=== PATIENT | female | born 1975 | race Caucasian/White ===

== ENCOUNTER 2020-06-07 06:57 | Outpatient (NON) | payer MEDICARE, MEDICAID, SELFPAY ==
[2020-06-07 18:51] LABS: SARS-CoV-2 RNA PCR Negative
== END 2020-06-07 06:58 ==
PROVIDERS: PCP Student in an Organized Health Care Education/Training Program; Visit Provider Student in an Organized Health Care Education/Training Program
DX: R68.89 Other general symptoms and signs (principal); Z20.828 Contact with and (suspected) exposure to other viral communicable diseases
CPT/HCPCS: 87635; C9803; U0003

== ENCOUNTER 2020-12-28 16:36 | Emergency (ER) | payer MEDICARE, MEDICAID, SELFPAY ==
[2020-12-28 16:52] VITALS: BP 130/80; PULSE 63; RESP 16; TEMP 36.6; O2SAT 100
--- NOTE | 2020-12-28 16:54 | ED.FEMALEGU ---
HPI - Female Genitourinary General Chief complaint: Urogenital-Female Stated complaint: uti Time Seen by Provider: 12/28/20 16:54 Source: patient Mode of arrival: ambulatory Limitations: no limitations History of Present Illness HPI Narrative: Verónica Jacobo is a 45 yo female with a PMH of HTN, MS, chronic pain, who comes to [facility] care, with urgency frequency x3 days. States she has abdominal pain when she is urinating Patient occasionally gets UTIs, has MS Related Data Home Medications Medication Instructions Recorded Confirmed gabapentin 800 mg PO HS 05/10/19 12/28/20 lorazepam 2 mg PO HS PRN 05/10/19 12/28/20 tizanidine 4 mg PO HS 05/10/19 12/28/20 baclofen 20 mg PO BID 12/28/20 12/28/20 Allergies Allergy/AdvReac Type Severity Reaction Status Date / Time Penicillins Allergy Unknown Unknown Verified 12/28/20 16:50 Sulfa (Sulfonamide Allergy Unknown Unknown Verified 12/28/20 16:50 Antibiotics) Review of Systems Review of Systems: Narrative: CONSTITUTIONAL: Denies fever, chills, sweats. EYES: Denies visual changes, redness, discharge. ENT: Denies rhinorrhea, congestion, sore throat, otalgia. CARDIOVASCULAR: Denies chest pain, palpitations, edema. RESPIRATORY: Denies dyspnea, wheezing, cough GASTROINTESTINAL: Denies abdominal pain, nausea, vomiting, diarrhea. GENITOURINARY: Has dysuria, no hematuria, abnormal discharge SKIN: Denies rash or itching. NEUROLOGIC: Denies numbness, or focal weakness. PSYCHIATRIC: Denies anxiety or depression. FORMERLY [facility], [facility]–1983 Past Medical History Medical History Hypertension Multiple sclerosis Surgical History Surgical History History of appendectomy History of partial hysterectomy Family History Family History Other Hypertension Social History Social History Smoking status: Never smoker Alcohol intake: never Gender identity (if verbalized by the patient): Female Comments At time of signature, I agree with nursing past medical, surgical, social and family history. There is no relevant family history pertinent to the presenting complaint. Exam Narrative: Exam Narrative: GENERAL: This is a well-nourished, well-developed patient, in mild distress. HEAD: normocephalic, atraumatic. EYES: Sclera clear/white. Vision is grossly intact. EARS: External ears normal, . Hearing grossly intact. NOSE: External nose normal without nasal discharge, nares without redness, no rhinorrhea. THROAT: Mucous membranes moist, NECK: Neck supple, CARDIOVASCULAR: Regular rate and rhythm without murmurs, gallops, or rubs. RESPIRATORY: Clear to auscultation. Breath sounds equal bilaterally. No wheezes, rales, or rhonchi. GASTROINTESTINAL: Abdomen soft, SKIN: warm, intact with no suspicious lesions or rash, good texture and turgor. NEURO: awake, alert, and oriented to person, place and time. There were no obvious focal neurologic abnormalities. Steady gait EXTREMITIES: Normal range of motion. BACK: Nontender without deformity Course Course Emergency Course: Patient comes to urgent care with complaints of dysuria and urgency; history states that she has a penicillin allergy but she has been treated with Keflex before with no problem UA shows 1+ leukocytes and 2+ blood Started on Keflex and Pyridium-appears to drink adequate fluids Vital Signs Vital signs: Vital Signs Temperature 97.9 F 12/28/20 16:52 Pulse Rate 63 12/28/20 16:52 Respiratory Rate 16 12/28/20 16:52 Blood Pressure 130/80 12/28/20 16:52 Pulse Oximetry 100 12/28/20 16:52 Temperature 97.9 F 12/28/20 16:56 Pulse Rate 63 12/28/20 16:56 Respiratory Rate 16 12/28/20 16:56 Blood Pressure 130/80 12/28/20 16:56 Pulse Oximetry 100 12/28/20 16:56 MDM - Female Genitourin
[2020-12-28 16:56] VITALS: BP 130/80; PULSE 63; RESP 16; TEMP 36.6; O2SAT 100
== END 2020-12-28 17:08 | disposition home or self-care (01) ==
PROVIDERS: Emergency Provider Nurse Practitioner; PCP Student in an Organized Health Care Education/Training Program
DX: N30.01 Acute cystitis with hematuria (principal); I10 Essential (primary) hypertension; G35 Multiple sclerosis
CPT/HCPCS: 81003; 87086; 87088; 99213; G0463

== ENCOUNTER 2021-10-14 12:34 | Emergency (ER) | payer MEDICARE, MEDICAID, SELFPAY | END 2021-10-14 13:01 | disposition left against medical advice (07) | PROVIDERS: Emergency Provider Internal Medicine Hematology & Oncology; PCP Student in an Organized Health Care Education/Training Program | DX: Z53.21 Procedure and treatment not carried out due to patient leaving prior to being seen by health care provider (principal) | CPT/HCPCS: 99199 ==

== ENCOUNTER 2021-11-02 16:06 | Emergency (ER) | payer MEDICARE, MEDICAID, SELFPAY ==
--- NOTE | 2021-11-02 17:00 | PC.NURSE ---
No answer when called for triage.
== END 2021-11-02 16:30 | disposition left against medical advice (07) ==
LOC: ANHED 17:04
PROVIDERS: PCP Student in an Organized Health Care Education/Training Program
DX: Z53.21 Procedure and treatment not carried out due to patient leaving prior to being seen by health care provider (principal)
CPT/HCPCS: 99199

== ENCOUNTER 2022-12-23 09:27 | Emergency (ER) | payer MEDICARE, MEDICAID, SELFPAY ==
--- NOTE | ~2022-12-23 | CT_ITS ---
EXAMINATION: CT abdomen pelvis wo con DATE: 12/23/2022 12:13 INDICATION: Right flank pain, urinary tract infection TECHNIQUE: Computed tomography (CT) of the abdomen and pelvis was performed without intravenous contr ast. Automated exposure control and iterative reconstruction technique were employed. Exam dose: 846 .91 mGy-cm total exam DLP. COMPARISON: 05/10/2019 CT abdomen pelvis FINDINGS: The lung bases are clear. Normal heart size. No pericardial or pleural effusion. Small sliding hiatal hernia. Postoperative change of the stomach. Status post cholecystectomy. No hepatic steatosis is identified. No hepatic space-occupying mass lesion. No bile duct or pancreati c duct dilatation. No pancreatic mass lesion or calcification. Normal splenic size. Normal morphology of the adrenal glands. No renal mass lesion or urinary tract calculus or hydroureteronephrosis is evident. The urinary bladd er is unremarkable. Status post hysterectomy. The appendix is not localized. There is some fluid levels in the small bowel and colon without abnorm al dilatation, wall thickening or pneumatosis, which may be due to mild adynamic ileus. Mild sigmoid colon diverticulosis; no evidence of diverticulitis. Degenerative changes of the thoracic and lumbar spine. No suspicious osteolytic or osteoblastic lesio ns are noted. IMPRESSION: No urinary tract calculus or urinary tract obstruction is detected Status post cholecystectomy Postoperative change of the stomach Small sliding hiatal hernia Mild sigmoid colon diverticulosis Reviewed, dictated and finalized at [facility]. Reviewed, dictated and finalized at [facility].
[2022-12-23 09:28] VITALS: BP 126/87; PULSE 74; RESP 17; TEMP 36.6; O2SAT 100
[2022-12-23 09:57] LABS: Basophils Percent Auto 0.2 % (0.2-1.2); Eosinophils Absolute Auto 0.1 K/mm3 (0-0.3); Eosinophils Percent Auto 0.9 % (0-4.4); Hematocrit 44.9 % (37.0-47.0); Hemoglobin 14.8 g/dL (12.0-15.0); Immature Granulocyte Absolute 0.05 K/mm3 (0.00-0.031); Immature Granulocyte Percent A 0.4 % (0-0.5); Lymphocytes Absolute Auto 1.54 K/mm3 (0.9-3.2); Lymphocytes Percent Auto 13.1 % (18.3-44.2); Mean Corpuscular Hemoglobin 31.1 pg (26-34); Mean Corpuscular Volume 94.3 fl (80-100); Mean Platelet Volume 9.8 fl (7.4-10.4); Monocytes Percent Auto 8.6 % (2.6-8.5); Neutrophils Percent Auto 76.8 % (45.5-73.1); Platelet Count Result 289 k/mm3 (150-375); Red Blood Count 4.76 M/mm3 (4.2-5.4); White Blood Count 11.7 K/mm3 (4.5-10.0)
[2022-12-23 09:58] LABS: Appearance Urine Cloudy (Clear); Bacteria Urine 4+ /hpf; Bilirubin Urine Negative (Negative); Blood Urine 3+ (Negative); Color Urine Yellow (Yellow); Glucose Urine UA Negative (Negative); Ketones Urine Negative (Negative); Leukocyte Esterase Ur 3+ LEU/UL (Negative); Nitrate Urine Positive (Negative); Non Pathogenic Casts 0-2; Protein Urine 2+ mg/dL (Negative); Specific Grav Ur 1.015 (1.001-1.035); Squamous Epithelial Cell Urine Few /hpf (Few); Urobilinogen Urine 0.2 mg/dL (<2.0); WBC Urine 51-100 /hpf; pH Urine 6.5 (5.0-9.0)
[2022-12-23 10:04] LABS: Alanine Aminotransferase 18 U/L (6-35); Albumin Level 4.2 g/dL (3.5-5.1); Alkaline Phosphatase 55 U/L (38-126); Anion Gap 6 mmol/L (8-16); Aspartate Amino Transferase 21 U/L (14-36); Bilirubin,Total 0.6 mg/dL (0.2-1.3); Blood Urea Nitrogen 9 mg/dL (7-17); Calcium 9.2 mg/dL (8.4-10.2); Carbon Dioxide 31 mmol/L (22-30); Chloride 99 mmol/L (98-107); Estimated CRCL calculation 87 ml/min; Estimated Glomerular Filt Rate > 60; Glucose 93 mg/dL (65-110); Lipase 106 U/L (23-300); Potassium 3.9 mmol/L (3.4-5.0); Sodium 136 mmol/L (137-145)
[2022-12-23 10:12] LABS: Add Urine Microscopic? YES
--- NOTE | 2022-12-23 11:11 | ED.BACK ---
HPI - Back Pain/Injury General Chief Complaint: Back Pain/Injury Stated Complaint: right flank pain Time Seen by Provider: 12/23/22 10:34 History of Present Illness HPI Narrative: 47-year-old female presents to the emergency room today for UTI symptoms with right flank pain. She started having urinary symptoms about 3 days ago, cloudy, malodorous urine with dysuria. She started having significant pain in the right flank area yesterday. She reports having severe nausea without vomiting. She feels a little dizzy lightheaded at times. She has a low-grade temp around 99 at home. No abdominal pain. She has a history of MS and reports having immune compromise. She called her [employer] this morning and they prescribed Cipro which she cannot take do to side effects and drug interaction. She is allergic to Bactrim and penicillin. Related Data Home Medications Medication Instructions Recorded Confirmed gabapentin 800 mg tablet 800 mg PO HS 05/10/19 12/28/20 lorazepam 2 mg tablet 2 mg PO HS PRN Anxiety 05/10/19 12/28/20 tizanidine 4 mg tablet 4 mg PO HS 05/10/19 12/28/20 baclofen 20 mg tablet 20 mg PO BID 12/28/20 12/28/20 Allergies Allergy/AdvReac Type Severity Reaction Status Date / Time Penicillins Allergy Unknown Unknown Verified 12/23/22 09:30 Sulfa (Sulfonamide Allergy Unknown Unknown Verified 12/23/22 09:30 Antibiotics) Review of Systems Review of Systems: CONSTITUTIONAL: Denies fever, chills, or sweats. EYES: Denies visual changes, redness, or discharge. ENT: Denies rhinorrhea, congestion, sore throat, or otalgia. CARDIOVASCULAR: Denies chest pain, palpitations, or edema. RESPIRATORY: Denies cough or dyspnea. GASTROINTESTINAL: As per HPI GENITOURINARY: As per HPI SKIN: Denies rash or itching. MUSCULOSKELETAL: Denies back pain, joint pain, or myalgia. NEUROLOGIC: Denies headache, numbness, dizziness, or weakness. PSYCHIATRIC: Denies anxiety or depression. [facility] Past Medical History Medical History Hypertension Multiple sclerosis Surgical History Surgical History History of appendectomy History of partial hysterectomy Family History Family History Other Hypertension Social History Social History Smoking status: Never smoker Alcohol intake: never Gender identity (if verbalized by the patient): Female Exam Narrative: GENERAL: Well-appearing, well-nourished, and in no acute distress. NECK: Supple. No adenopathy or masses. CHEST: Clear to auscultation. No respiratory distress. No wheezes rales or rhonchi HEART: Regular rate and rhythm. No murmur heard. Normal peripheral pulses. ABDOMEN: Soft, nontender, nondistended, normal active bowel sounds. Rigth CVAT EXTREMITIES: Normal range of motion. No edema. SKIN: Warm, dry, no rash. NEURO: No focal deficits. Alert and oriented x3. PSYCH: Normal mood and affect. Course Vital Signs Vital signs: Vital Signs Temperature 36.6 C 12/23/22 09:28 Pulse Rate 74 12/23/22 09:28 Respiratory Rate 17 12/23/22 09:28 Blood Pressure 126/87 12/23/22 09:28 Pulse Oximetry 100 12/23/22 09:28 Oxygen Delivery Room Air 12/23/22 09:28 Temperature 36.6 C 12/23/22 09:28 Pulse Rate 67 12/23/22 12:53 Respiratory Rate 16 12/23/22 12:53 Blood Pressure 135/82 12/23/22 12:53 Pulse Oximetry 100 12/23/22 12:53 Oxygen Delivery Room Air 12/23/22 09:28 MDM - Back Pain/Injury MDM Narrative Medical decision making narrative: Mild WBC elevation UA shows findings of UTI No significant findings on CT scan. Discussed with patient, she feels that she can tolerate PO meds. Will discharge to home but she agrees to have close follow up with PCP in 2 days. Will return to ER i
[2022-12-23] MEDS: SODIUM CHLORIDE 0.9% IV 1,000 ML 999 ML IV CONT (11:21)
[2022-12-23] MEDS: ONDANSETRON INJ 4 MG/2 ML VIAL IV PUSH (11:22)
[2022-12-23 12:53] VITALS: BP 135/82; PULSE 67; RESP 16; O2SAT 100
== END 2022-12-23 13:16 | disposition home or self-care (01) ==
PROVIDERS: Preventive Medicine Aerospace Medicine; Emergency Provider Nurse Practitioner Family; PCP Student in an Organized Health Care Education/Training Program
DX: N10 Acute pyelonephritis (principal); I10 Essential (primary) hypertension; G35 Multiple sclerosis
CPT/HCPCS: 36415; 74176; 80053; 81001; 83690; 85025; 87077; 87086; 87186; 96361; 96365; 96375; 99284; J0696; J2405; J7030

== ENCOUNTER 2023-02-01 13:00 | Outpatient (RCR) | payer MEDICARE, MEDICAID, SELFPAY ==
--- NOTE | 2022-11-07 09:53 | PCPTNOTE ---
Patient did not show up for scheduled appointment this date. Called and left voicemail for Pt about missed appointment. Informed Pt this would be her first N/S. Reminded Pt of upcoming appointment on Saturday11/12/22 @ 09:45.
--- NOTE | 2022-11-07 12:44 | PTOPEVAL1 ---
Assessment and note entered by Yobani Swain, PT Evaluation Information Assessment Status Evaluation Diagnosis MS Subjective Information Patient reporting having MS with progressive symptoms which really became exacerbated after her second . She reports multiple falls in the last few months, with increased tightness. She does not want to use her walking stick and cannot use a cane, she has tried before. Patient is wearing an AFO after not wearing it for awhile and reports she needs to build up to wearing it more. 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 Assessment PT Clinical Summary Verónica is a 47 year old female coming into the clinic with a diagnosis of MS. She has weakness in her hips and LLE. Patient also talks about stopping going to the gym secondary to concerns about incontinence. Recommend talking her primary about getting an evaluation for pelvic floor strengthening. Talked to patient about how with multiple falls would be smart to use the least restrictive assistive device. Physical therapy will work on strengthening and balance. Plan of Care Interventions Electrical Stimulation,Gait Training,Hot Pack/Cold Pack,Manual Therapy,Neuro Re-education,Patient/ Caregiver Education,Therapeutic Activities, Therapeutic Exercise,Ultrasound Other Interventions taping, cupping, IASTM PT Services Indicated Yes Treatment Frequency and 1-2x/wk for 4 weeks Duration These treatments will address the objective and functional deficits as defined above. The patient will be advanced safely and appropriately in order for the patient to progress towards his/her prior level of function. Additional exercises will be introduced and as well as a comprehensive home exercise program upon discharge, if needed, ?to ensure carryover of functional gains achieved in the clinic. This treatment plan has been reviewed and agreement upon by the patient.
--- NOTE | 2022-11-23 10:08 | PCPTNOTE ---
pt canceled today's appt ~ 10 min before appt time, due to being ill.
--- NOTE | 2022-11-29 14:44 | PCPTNOTE ---
Patient did not show up for appointment on 11/29/22.
--- NOTE | 2022-12-07 11:54 | PCPTNOTE ---
Patient did not show up for appointment on 12/07/22.
--- NOTE | 2022-12-13 14:44 | PTOPREEVAL ---
Assessment and note entered by Sonia Hedrick DPT Evaluation Information Assessment Status Re-evaluation Diagnosis MS Subjective Information Pt reports a history of bladder issues and also has a diagnosis of either primary of secondary progressive MS, diagnosed in 2007. Reports incontinence 4-5 times in the last week, volume will be the full amount of her bladder. Can hold urine variable amounts of time but does report urgency, often gets urge incontinence once she is in the bathroom. Wears special underwear for the leakage. Urinates more than 10 times a day and at least 3 more times at night. Difficulty emptying completely. Denies pain with urination. BM 1-2 times a week, reports frequent constipation. Denies pain. States she was never able to use tampons, has had pain with pap smear and has had pain with intercourse some of the time, as long as she can remember. Pt has had 3 children, all vaginal deliveries. Tearing with her first. Partial hysterectomy in 2009, reports she has also been diagnosed with ovarian cysts. D and C in 2005. Highest hip pain in the last week 5/10 and lowest 2/10. Has been feeling some relief of pain with therapy for it so far. Reported Pain Level Pain Score 2: Self Report Assessment PT Clinical Summary The patient has been seen in therapy for MS and general hip/LE pain and recently received an order for pelvic floor therapy for incontinence. She presents with decreased LE strength, decreased core strength, and decreased pelvic floor strength which are contributing to her frequent incontinence. She will benefit from therapy for these issues in addition to her first script in order to reduce incontinence. She does report some improvement in her LE pain so far with therapy. Plan of Care Interventions Electrical Stimulation,Gait Training,Hot Pack/Cold Pack,Manual Therapy,Neuro Re-education,Patient/ Caregiver Education,Therapeutic Activities, Therapeutic Exercise,Self-Care/Home Management, Ultrasound Other Interventions taping, cupping, IASTM PT Services Indicated Yes Treatment Frequency and 2 times a week for 8 visits Duration These treatments will address the objective and functional deficits as d
--- NOTE | 2022-12-14 13:04 | PCPTNOTE ---
Patient called & cancelled scheduled appointment this date due to not feeling well.
--- NOTE | 2023-01-02 10:40 | PCPTNOTE ---
Pt NS her appt today. Pt was called and left message.
--- NOTE | 2023-01-03 13:51 | PCPTNOTE ---
Patient forgot appointment for 01/03/23, thought it was for tomorrow. Patient was reminded of attendance policy and educated if she did not come to her appointments next week she will be discharged.
--- NOTE | 2023-01-17 16:27 | PTOPPROG ---
Assessment and note entered by Sonia Hedrick DPT Evaluation Information Assessment Status Progress Diagnosis MS Subjective Information Pt reports she is having an off day, I really just want to go home and sleep . Reports her incontinence is occurring at least 4 times a week. Has been working on strategies to decrease frequent urination. Hip pain 5/10 and lowest 2/10. Feels improvements being able to walk at home since her pain has decreased. Started a new medicine last week which also might be contributing to her feeling off . Assessment PT Clinical Summary The patient has made some progress in therapy and reports decreased hip pain and improvements with her ability to walk at home. She has made minor hip strength improvements. She reports her urinary incontinence is occuring at the same frequency and demonstrates the same pelvic floor strength. She will continue to benefit from therapy to further address hip pain and incontinence in order to improve function at home. The patient has had to cancel multiple visits due to other health issues and have discussed importance of regularly attending scheduled therapy visits in order to continue progressing. Plan of Care Interventions Electrical Stimulation,Gait Training,Hot Pack/Cold Pack,Manual Therapy,Neuro Re-education,Patient/ Caregiver Education,Therapeutic Activities, Therapeutic Exercise,Self-Care/Home Management Other Interventions taping, cupping, IASTM PT Services Indicated Yes Treatment Frequency and 2 times a week for 4 weeks Duration These treatments will address the objective and functional deficits as defined above. The patient will be advanced safely and appropriately in order for the patient to progress towards his/her prior level of function. Additional exercises will be introduced and as well as a comprehensive home exercise program upon discharge, if needed, ?to ensure carryover of functional gains achieved in the clinic. This treatment plan has been reviewed and agreement upon by the patient.
--- NOTE | 2023-01-25 10:40 | PCPTNOTE ---
Patient called and cancelled her appointment today stating that she had to take her father to an appointment.
--- NOTE | 2023-01-29 10:09 | PCPTNOTE ---
Patient called & cancelled scheduled appointment this date due to being sick.
--- NOTE | 2023-01-30 08:55 | PCPTNOTE ---
Attempted to call patient yesterday to discuss attendance. Patient did not answer and was unable to leave voicemail.
--- NOTE | 2023-02-04 08:07 | PCPTNOTE ---
This treatment is being continued on visit number [id number]. Please see documentation on both accounts to view progress. Completed interventions, outcomes, and problems have been marked as Inactive to facilitate the copying of the Care plan routine for recurring accounts.
== END 2023-02-03 23:59 | disposition home or self-care (01) ==
LOC: ANHPT 13:00
PROVIDERS: PCP Student in an Organized Health Care Education/Training Program
DX: G35 Multiple sclerosis (principal)
CPT/HCPCS: 97014; 97110; 97112; 97140; 97161; 97530; 99199; G0283

== ENCOUNTER 2023-02-07 15:15 | Outpatient (RCR) | payer MEDICARE, MEDICAID, SELFPAY ==
--- NOTE | 2023-02-04 08:13 | PCPTNOTE ---
The treatment documented on this account is a continuation of the treatment documented on visit number [id number]. Please see documentation on both accounts to view progress. The Plan of Care has been transitioned and updated within the new V#. I have addressed and agree with the discipline specific Problems, Interventions, and Goals for the current certification period. Completed interventions, outcomes, and problems have been marked as Inactive to facilitate the copying of the Care plan routine for recurring accounts.
--- NOTE | 2023-02-04 10:34 | PCPTNOTE ---
Patient called & rescheduled appointment this date.
--- NOTE | 2023-02-06 09:35 | PCPTNOTE ---
pt called and canceled today's appt due to having to do something with her child.
--- NOTE | 2023-02-08 12:31 | PCPTNOTE ---
Patient called to cancel appointment today due to her granddaughter having a fever.
--- NOTE | 2023-02-11 12:40 | PCPTNOTE ---
Patient cancelled today's session secondary to illness.
--- NOTE | 2023-03-01 13:52 | PCPTNOTE ---
Patient did not show up for re-evaluation on 03/01/23. Patient's case to be discharged due to non-attendance.
--- NOTE | 2023-03-19 08:30 | PTOPDC ---
Assessment and note entered by Sonia Hedrick, DPT Evaluation Information Assessment Status Discharge - Pt Not Present Diagnosis MS Subjective Information - Assessment PT Clinical Summary Patient is being discharged due to attendance policy after no showing more than 3 sessions. Plan of Care PT Services Indicated No
== END 2023-03-19 10:58 | disposition home or self-care (01) ==
LOC: ANHPT 15:15
PROVIDERS: PCP Student in an Organized Health Care Education/Training Program
DX: G35 Multiple sclerosis (principal); N31.9 Neuromuscular dysfunction of bladder, unspecified
CPT/HCPCS: 97014; 97112; 97140; 99199; G0283

== ENCOUNTER 2023-03-25 10:41 | Emergency (ER) | payer MEDICARE, MEDICAID, SELFPAY ==
[2023-03-25 11:05] VITALS: BP 131/88; PULSE 81; RESP 16; TEMP 36.9; O2SAT 100
--- NOTE | 2023-03-25 11:33 | ED.HA ---
HPI - Headache General Chief Complaint: Headache Stated Complaint: headache,cough Time Seen by Provider: 03/25/23 11:33 Source: patient Mode of arrival: ambulatory Limitations: no limitations History of Present Illness HPI Narrative: 47-year-old female presents with complaint of nasal congestion, sinus pressure and pain for 2 weeks. Patient concerned for sinus infection. Reports worsening of headache, fatigue 3 days ago. Afebrile. Using Flonase with no relief of symptoms. Also reports cough, no shortness breath. All systems reviewed and negative except as noted above. Related Data Home Medications Medication Instructions Recorded Confirmed lorazepam 2 mg tablet 2 mg PO HS PRN Anxiety 05/10/19 12/28/20 tizanidine 4 mg tablet 4 mg PO HS 05/10/19 12/28/20 baclofen 20 mg tablet 20 mg PO BID 12/28/20 12/28/20 bupropion HCl 100 mg tablet mg PO 03/25/23 gabapentin 600 mg tablet mg 03/25/23 linaclotide 290 mcg capsule mcg 03/25/23 (Linzess) modafinil 100 mg tablet mg 03/25/23 omeprazole 40 mg capsule,delayed mg 03/25/23 release semaglutide 0.25 mg or 0.5 mg (2 mg subcut 03/25/23 mg/3 mL) subcutaneous pen injector (Ozempic) Allergies Allergy/AdvReac Type Severity Reaction Status Date / Time Penicillins Allergy Unknown Unknown Verified 03/25/23 10:45 Sulfa (Sulfonamide Allergy Unknown Unknown Verified 03/25/23 10:45 Antibiotics) Review of Systems Review of Systems: CONSTITUTIONAL: reports fever, chills, or sweats. EYES: Denies visual changes, redness, or discharge. ENT: Reports rhinorrhea, congestion, sinus pressure, sore throat. Denies otalgia. CARDIOVASCULAR: Denies chest pain, palpitations, or edema. RESPIRATORY: reports cough. Denies dyspnea. GASTROINTESTINAL: Denies abdominal pain, nausea, vomiting. Reports diarrhea. GENITOURINARY: Denies dysuria or hematuria. SKIN: Denies rash or itching. MUSCULOSKELETAL: Denies back pain, joint pain, or myalgia. NEUROLOGIC: Denies headache, numbness, or weakness. PSYCHIATRIC: Denies anxiety or depression. All other systems reviewed are negative, except as documented in HPI. [facility] Past Medical History Medical History Hypertension Multiple sclerosis Surgical History Surgical History History of appendectomy History of partial hysterectomy Family History Family History Other Hypertension Social History Social History Smoking status: Never smoker Alcohol intake: never Gender identity (if verbalized by the patient): Female Comments At time of signature, agree with nursing past medical, surgical, social and family history. There is no relevant family history pertinent to the presenting complaint. Exam Narrative: GENERAL: This is a well-nourished, well-developed patient, patient ill-appearing but in no acute distress. HEAD: normocephalic, atraumatic. EYES: PERRL. Sclera clear/white. Vision is grossly intact. EARS: External ears normal, auditory canals clear and without drainage, Fluid bilateral TMs without erythema. Hearing grossly intact. NOSE: External nose normal with Severe congestion, erythema and swelling to bilateral nares, purulence nasal drainage. THROAT: Mucous membranes moist, Erythema with postnasal drainage. No exudates. NECK: Neck supple, non-tender without lymphadenopathy, masses or thyromegaly. CARDIOVASCULAR: Regular rate and rhythm without murmurs, gallops, or rubs. RESPIRATORY: Clear to auscultation. Breath sounds equal bilaterally. No wheezes, rales, or rhonchi. SKIN: warm, Dry, intact with no suspicious lesions or rash, good texture and turgor. NEURO: awake, alert, and oriented to person, place and time. There were no obvious focal neurologic abnormalities. EXTREMI
== END 2023-03-25 11:45 | disposition home or self-care (01) ==
PROVIDERS: Emergency Provider Nurse Practitioner Family; PCP Student in an Organized Health Care Education/Training Program
DX: J10.1 Influenza due to other identified influenza virus with other respiratory manifestations (principal); J01.90 Acute sinusitis, unspecified; B96.89 Other specified bacterial agents as the cause of diseases classified elsewhere; I10 Essential (primary) hypertension; Z20.822 Contact with and (suspected) exposure to COVID-19
CPT/HCPCS: 87426; 87804; 99213; C9803; G0463

== ENCOUNTER 2024-02-24 11:12 | Emergency (ER) | payer MEDICARE, MEDICAID, SELFPAY ==
--- NOTE | ~2024-02-24 | US_ITS ---
Duplex Sonography of the left extremity: Indication: Swelling, erythema Findings: Sagittal and transverse B-mode images as well as color-flow imaging were performed on the l eft femoral and popliteal veins. B-mode examination was done without and with compression in the tra nsverse plane. There is good visualization of the common femoral, proximal profunda femoral, superfi cial femoral, greater saphenous, and popliteal veins. Normal flow was seen on color-flow imaging. No rmal compressibility was demonstrated. Visualized calf veins are also patent. Impression: No evidence of deep vein thrombosis involving the left lower extremity. Reviewed, dictated and finalized at location . Impression: No evidence of deep vein thrombosis involving the left lower extremity.
[2024-02-24 11:18] VITALS: BP 138/89; PULSE 80; RESP 16; TEMP 36.8; O2SAT 100
--- NOTE | 2024-02-24 12:19 | ED.GENADULT ---
HPI - General Adult General Chief complaint: Extremity Injury, Lower Stated complaint: DVT rule out in L leg Time Seen by Provider: 02/24/24 11:56 Source: patient Mode of arrival: ambulatory Limitations: no limitations History of Present Illness HPI narrative: 8-year-old with a history of MS presents with the complaints of left leg pain and swelling on and off for past few weeks. Patient states that and of the day her left leg is edematous and painful. She states that she fell a month ago. She is presently disabled from MS she is not on her feet for long time. Denies any fever or chills. Onset (ago): week(s) (2) Location: lower extremity ( Left) Radiation: non-radiation Severity: moderate Quality: aching Pain Consistency: now resolved Relieving factors: none Exacerbating factors: none Associated symptoms: denies other symptoms Related Data Home Medications Medication Instructions Recorded Confirmed lorazepam 2 mg tablet 2 mg PO HS PRN Anxiety 05/10/19 12/28/20 tizanidine 4 mg tablet 4 mg PO HS 05/10/19 12/28/20 baclofen 20 mg tablet 20 mg PO BID 12/28/20 12/28/20 bupropion HCl 100 mg tablet mg PO 03/25/23 gabapentin 600 mg tablet mg 03/25/23 linaclotide 290 mcg capsule mcg 03/25/23 (Linzess) modafinil 100 mg tablet mg 03/25/23 omeprazole 40 mg capsule,delayed mg 03/25/23 release semaglutide 0.25 mg or 0.5 mg (2 mg subcut 03/25/23 mg/3 mL) subcutaneous pen injector (Ozempic) Allergies Allergy/AdvReac Type Severity Reaction Status Date / Time Penicillins Allergy Unknown Unknown Verified 02/24/24 11:14 Sulfa (Sulfonamide Allergy Unknown Unknown Verified 02/24/24 11:14 Antibiotics) Review of Systems Review of Systems: All systems reviewed & are unremarkable except as noted in HPI and below Constitutional: Constitutional: Reports no additional constitutional complaints Eyes: Eyes: Reports no additional eye complaints ENT: Reports system reviewed and no additional complaints, except as documented Cardiovascular: Cardiovascular: Reports no additional cardiovascular complaints Respiratory: Respiratory: Reports no additional respiratory complaints Gastrointestinal: Gastrointestinal: Reports no additional gastrointestinal complaints Musculoskeletal: Musculoskeletal: Reports as per HPI Neurologic: Reports system reviewed and no additional complaints, except as documented PMFSH Past Medical History Medical History Hypertension Multiple sclerosis Surgical History Surgical History History of appendectomy History of partial hysterectomy Family History Family History Other Hypertension Social History Social History Smoking status: Never smoker Alcohol intake: never Gender identity (if verbalized by the patient): Female Exam Narrative: GENERAL: Well-appearing, well-nourished, and in no acute distress. HEAD: Normocephalic, atraumatic. EYES: PERRLA and EOMI.. NECK: Supple. CHEST: Clear to auscultation. No respiratory distress. HEART: Regular rate and rhythm. No murmur heard. Normal peripheral pulses. EXTREMITIES: Normal range of motion. No edema. examination of the left leg shows no evidence of edema, redness calf is soft nontender SKIN: Warm, dry, no rash. NEURO: No focal deficits. Alert and oriented x3. PSYCH: Normal mood and affect. Course Course Emergency Course: notified patient about ultrasound findings. Advised compression stockings. advised to continue home medications. She wanted me to give a referral to Dr. Lock Vital Signs Vital signs: Vital Signs Temperature 36.8 C 02/24/24 11:18 Pulse Rate 80 02/24/24 11:18 Respiratory Rate 16 02/24/24 11:18 Blood Pressure 138/89 02/24/24 11:18 Pulse Oximetry 100 02/24/24 11
== END 2024-02-24 12:38 | disposition home or self-care (01) ==
LOC: ANHED 12:32
PROVIDERS: Emergency Provider Family Medicine
DX: M79.605 Pain in left leg (principal); I10 Essential (primary) hypertension; G35 Multiple sclerosis
CPT/HCPCS: 93971; 99284

== ENCOUNTER 2024-04-20 01:44 | Day surgery (SDC) | payer MEDICARE, MEDICAID, SELFPAY ==
[2024-04-06 13:26] VITALS: BMI 26.6
[2024-04-20 10:43] VITALS: BP 128/79; PULSE 58; RESP 18; TEMP 36.1; O2SAT 100
--- NOTE | 2024-04-20 10:47 | WPDANESEPPF ---
Anes - Initial Pre Proc Eval Procedure: Operation Date: 04/20/24 11:30 Proposed Procedures p Screening Colonoscopy - Tray Zavala DO Date/Time: 04/20/24 10:47 Surgeon: Tray Zavala DO Pre Op Diagnosis: Screening for malignant neoplasm of colon Patient Data Age: 49 Gender: F Height: 1.73 m Weight: 84.4 kg Last Vital Signs Temp 36.1 C L 04/20/24 10:43 Pulse 58 L 04/20/24 10:43 Resp 18 04/20/24 10:43 BP 128/79 04/20/24 10:43 Pulse Ox 100 04/20/24 10:43 O2 Del Method Room Air 04/20/24 10:43 Allergies Allergy/AdvReac Type Severity Reaction Status Date / Time Penicillins Allergy Unknown Unknown Verified 04/20/24 10:39 Sulfa (Sulfonamide Allergy Unknown Unknown Verified 04/20/24 10:39 Antibiotics) Home Medications Medication Instructions Recorded Confirmed Type tizanidine 4 mg tablet 6 mg PO HS 05/10/19 04/20/24 History baclofen 20 mg tablet 20 mg PO BID 12/28/20 04/20/24 History gabapentin 600 mg tablet 600 mg PO TID 03/25/23 04/20/24 History linaclotide 290 mcg capsule 290 mcg PO DAILY 03/25/23 04/20/24 History (Kaci) omeprazole 40 mg capsule,delayed 40 mg PO DAILY 03/25/23 04/20/24 History release simvastatin 20 mg tablet 20 mg PO DAILY 02/27/24 04/20/24 History tirzepatide 10 mg/0.5 mL 10 mg (0.5 mL) subcut WEEKLY #2 mL 02/27/24 04/20/24 Rx subcutaneous pen injector (Steve) hydrocodone 10 mg-acetaminophen 1 tablet PO Q4H PRN pain (scale 03/27/24 04/20/24 Rx 325 mg tablet score 7-10) #150 tabs lorazepam 2 mg tablet 2 mg PO HS PRN Anxiety #30 tabs 03/27/24 04/20/24 Rx doxycycline hyclate 100 mg capsule 100 mg PO BID 04/06/24 04/20/24 History methylprednisolone 4 mg tablets in See Rx Instructions .Route .COMPLEX 04/06/24 04/20/24 History a dose pack tirzepatide 12.5 mg/0.5 mL 12.5 mg (0.5 mL) subcut WEEKLY #2 04/14/24 04/20/24 Rx subcutaneous pen injector mL (Dericro) Patient hx anesthesia problems: none Family hx anesthesia problems: none Results Review: All pre-operative results and documents have been reviewed as part of the pre-operative evaluation. [facility] Past Medical History Medical History Anxiety Asthma Diabetes GERD (gastroesophageal reflux disease) Heart disease Hypertension Multiple sclerosis Surgical History Surgical History History of appendectomy History of partial hysterectomy Family History Family History Mother Asthma Cancer Hypertension Father Cancer Depression Heart disease Alcoholism Sibling Cancer Grandparent Cancer Social History Social History Smoking status: Never smoker Second hand tobacco smoke exposure: No Alcohol intake: never Substance use: never Substance use type: does not use Living arrangements: alone Gender identity (if verbalized by the patient): Female Sexual Orientation (if Verbalized by the Patient): Straight or Heterosexual Anes - Eval Final PreProcedure Day of Procedure 04/20/24 10:47 Patient weight: overweight Heart: regular rate and rhythm Lungs: clear to auscultation Airway: Mallampati scale class II Neurological: alert and oriented Last oral intake: >/= 8 hours ASA classification: III Emergent: no Anesthetic plan: proceed Anesthesia type and monitoring: general GIVS and standard monitoring Results Review: All pre-operative results and documents have been reviewed as part of the pre-operative evaluation. Informed Consent: The patient's anesthetic plan and its attendant risks and benefits were discussed with the patient/family/POA. Questions were solicited and answers provided to the satisfaction of the patient/family/POA.
[2024-04-20] MEDS: LACTATED RINGERS 1,000 ML 150 ML IV CONT (10:55)
--- NOTE | 2024-04-20 11:04 | PM.IMHP ---
H&P: HPI History of Present Illness Date/Time: 04/20/24 11:04 Chief Complaint: Screening for colorectal cancer Narrative: This is a 49-year-old woman who presents for colonoscopy. She has never had a colonoscopy before. She denies any hematochezia or melena. She has a family history of anal cancer and her father but no one in the family with rectal cancer or colon cancer. Review of Systems Review of Systems: All systems reviewed & are unremarkable except as noted in HPI and below Constitutional: Constitutional: Denies chills, Denies fever(s), Denies headache(s) and Denies weight loss Eyes: Eyes: Denies change in vision ENT: Denies dizziness, Denies headache(s), Denies neck mass and Denies throat swelling Cardiovascular: Cardiovascular: Denies chest pain, Denies lightheadedness and Denies dyspnea Respiratory: Respiratory: Denies cough, Denies dyspnea and Denies wheezing Gastrointestinal: Gastrointestinal: Denies abdominal pain, Denies change in bowel habits, Denies nausea and Denies vomiting Genitourinary: Genitourinary: Denies hematuria and Denies dysuria Musculoskeletal: Musculoskeletal: Reports as per HPI Integumentary/Breasts: Skin/Breast: Reports as per HPI Neurologic: Denies dizziness and Denies headache(s) Allergic/Immunologic: Allergic/Immunologic: Denies throat swelling and Denies wheezing PMFSH Past Medical History Medical History Anxiety Asthma Diabetes GERD (gastroesophageal reflux disease) Heart disease Hypertension Multiple sclerosis Surgical History Surgical History History of appendectomy History of partial hysterectomy Family History Family History Mother Asthma Cancer Hypertension Father Cancer Depression Heart disease Alcoholism Sibling Cancer Grandparent Cancer Social History Social History Smoking status: Never smoker Second hand tobacco smoke exposure: No Alcohol intake: never Substance use: never Substance use type: does not use Living arrangements: alone Gender identity (if verbalized by the patient): Female Sexual Orientation (if Verbalized by the Patient): Straight or Heterosexual Meds Home Medications and Allergies Home Medications Medication Instructions Recorded Confirmed Type tizanidine 4 mg tablet 6 mg PO HS 05/10/19 04/20/24 History baclofen 20 mg tablet 20 mg PO BID 12/28/20 04/20/24 History gabapentin 600 mg tablet 600 mg PO TID 03/25/23 04/20/24 History linaclotide 290 mcg capsule 290 mcg PO DAILY 03/25/23 04/20/24 History (Linzess) omeprazole 40 mg capsule,delayed 40 mg PO DAILY 03/25/23 04/20/24 History release simvastatin 20 mg tablet 20 mg PO DAILY 02/27/24 04/20/24 History tirzepatide 10 mg/0.5 mL 10 mg (0.5 mL) subcut WEEKLY #2 mL 02/27/24 04/20/24 Rx subcutaneous pen injector (Steve) hydrocodone 10 mg-acetaminophen 1 tablet PO Q4H PRN pain (scale 03/27/24 04/20/24 Rx 325 mg tablet score 7-10) #150 tabs lorazepam 2 mg tablet 2 mg PO HS PRN Anxiety #30 tabs 03/27/24 04/20/24 Rx doxycycline hyclate 100 mg capsule 100 mg PO BID 04/06/24 04/20/24 History methylprednisolone 4 mg tablets in See Rx Instructions .Route .COMPLEX 04/06/24 04/20/24 History a dose pack tirzepatide 12.5 mg/0.5 mL 12.5 mg (0.5 mL) subcut WEEKLY #2 04/14/24 04/20/24 Rx subcutaneous pen injector mL (Mounjaro) Allergies Allergy/AdvReac Type Severity Reaction Status Date / Time Penicillins Allergy Unknown Unknown Verified 04/20/24 10:39 Sulfa (Sulfonamide Allergy Unknown Unknown Verified 04/20/24 10:39 Antibiotics) Vital Signs Vital Signs - 24 hr 04/20/24 10:43 Temperature 97 F L Pulse Rate 58 L Respiratory Rate 18 Blood Pressure 128/79 Pulse Oximetry 100 Oxygen Delivery Room Air
[2024-04-20 11:30] VITALS: BP 107/72; PULSE 57; RESP 14; O2SAT 98
[2024-04-20 11:40] VITALS: BP 115/79; PULSE 53; RESP 18; O2SAT 98
[2024-04-20 11:50] VITALS: BP 123/83; PULSE 50; RESP 14; O2SAT 100
== END 2024-04-20 12:02 | disposition home or self-care (01) ==
PROVIDERS: PCP Family Medicine; Visit Provider Surgery
PROC: 0DJD8ZZ Inspection of Lower Intestinal Tract, Via Natural or Artificial Opening Endoscopic (ICD-10-PCS; CPT 45378; principal; 2024-04-20 11:30)
DX: Z12.11 Encounter for screening for malignant neoplasm of colon (principal); I11.9 Hypertensive heart disease without heart failure; F41.9 Anxiety disorder, unspecified; J45.909 Unspecified asthma, uncomplicated; E11.9 Type 2 diabetes mellitus without complications; K21.9 Gastro-esophageal reflux disease without esophagitis; G35 Multiple sclerosis; Z79.85 Long-term (current) use of injectable non-insulin antidiabetic drugs; Z79.891 Long term (current) use of opiate analgesic; Z98.890 Other specified postprocedural states; Z80.9 Family history of malignant neoplasm, unspecified; Z82.49 Family history of ischemic heart disease and other diseases of the circulatory system
CPT/HCPCS: G0105; J2003; J2704; J7120

== ENCOUNTER 2024-05-21 08:33 | Inpatient (IN) | payer MEDICARE, MEDICAID, SELFPAY ==
[2024-05-21] VITALS (14 sets, daily range): BP systolic 112–131; BP diastolic 57–93; PULSE 72–121; RESP 13–21; TEMP 35.7–36.9; O2SAT 97–100; BMI 28.6
--- NOTE | ~2024-05-21 | XR_ITS ---
EXAMINATION: XR chest 1V portable DATE: 05/21/2024 10:42 INDICATION: Sepsis and nausea TECHNIQUE: frontal view of the chest was obtained. COMPARISON: None FINDINGS: Subtle ground glass opacities in the right lower lung zone. No other airspace opacities, pleural effu dax or pneumothorax. The cardiomediastinal silhouette is normal. Mild to moderate thoracic spondylos is. IMPRESSION: 1. Subtle opacity right lower lung zone which could represent pneumonia, atelectasis or asymmetric mi ld pulmonary edema. Reviewed, dictated and finalized at location B. [facility] IMPRESSION: 1. Subtle opacity right lower lung zone which could represent pneumonia, atelec tasis or asymmetric mild pulmonary edema.
--- NOTE | ~2024-05-21 | CT_ITS ---
EXAMINATION: CT abdomen pelvis w con DATE: 05/21/2024 11:13 INDICATION: Urinary tract infection with treatment failure TECHNIQUE: Computed tomography (CT) of the abdomen and pelvis was performed with 100 mL Omnipaque-350 intravenous contrast. Automated exposure control and iterative reconstruction technique were employe d. The dose-length product was 927.43 mGy-cm. COMPARISON: None FINDINGS: Multiple small centrilobular groundglass opacities in the right middle and lower lobes suspicious for pneumonia with differential including pulmonary hemorrhage, aspiration or less likely mild pulmonary edema. Heart size is normal. No pericardial or pleural effusion. Postoperative change of prior sleev e gastrectomy with suture line along the greater curvature of the stomach. Cholecystectomy clips at t he gallbladder fossa. Liver, pancreas, bilateral adrenal glands and kidneys are normal. Unchanged 11 mm splenic cyst. There is some fluid in the proximal colon consistent with nonspecific diarrhea. No a bnormal bowel wall thickening or obstruction. There are few diverticula along the sigmoid colon witho ut adjacent comparison to suggest diverticulitis. 2.3 cm left adnexal cyst. Right adnexa is unremarka ble. The uterus is not identified and has likely been surgically resected. Bladder is unremarkable. N o free intraperitoneal gas or fluid. No pathologically enlarged abdominal or pelvic lymphadenopathy. 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 Moderate lumbar and lower thoracic spondylosis. IMPRESSION: 1. Centrilobular groundglass opacities in the right middle and lower lobes consistent with pneumonia with differential including aspiration, pulmonary hemorrhage or less likely mild pulmonary edema. 2. Fluid in the proximal colon consistent with nonspecific diarrhea. Correlate clinically for possibl e gastroenteritis. Reviewed, dictated and finalized at location B. [facility] IMPRESSION: 1. Centrilobular groundglass opacities in the right middle and lower lobes cons istent with pneumonia with differential including aspiration, pulmonary hemorrh age or less likely mild pulmonary edema. 2. Fluid in the proximal colon consistent with nonspecific diarrhea. Correlate clinically for possible gastroenteritis.
--- NOTE | 2024-05-21 09:05 | ECG_ITS ---
Test Date: 2024-05-21 09:28:40 Measurements Intervals [place] Rate: 109 P: 6 GA: 128 QRS: -7 QRSD: 96 T: 28 QT: 324 QTc: 436 Interpretive Statements SINUS TACHYCARDIA INCOMPLETE RIGHT BUNDLE BRANCH BLOCK DELAYED PRECORDIAL R/S TRANSITION CONSIDER INFERIOR INFARCT, AGE INDETERMINATE BORDERLINE ST-T WAVE ABNORMALITY- ANTEROLAT/HIGH LAT LEADS BASELINE ARTIFACT- V2 ABNORMAL ECG No previous ECG available for comparison Electronically Signed On 05-21-2024 11:00:53 GROUP BURNER MACHINE by Pee Melendez D.O.
[2024-05-21 09:14] LABS: Hematocrit 43.8 % (37.0-47.0); Mean Corpuscular HGB Conc 34.2 g/dl (32-36); Mean Corpuscular Hemoglobin 31.2 pg (26-34); Mean Corpuscular Volume 91.1 fl (80-100); Mean Platelet Volume 9.8 fl (7.4-10.4); Platelet Count Result 250 k/mm3 (150-375); Red Blood Count 4.81 M/mm3 (4.2-5.4); White Blood Count 26.8 K/mm3 (4.5-10.0)
[2024-05-21 09:24] LABS: Lactic Acid Reflex 2.5 mmol/L (0.7-2.0)
[2024-05-21] MEDS: SODIUM CHLORIDE 0.9% IV 3,000 ML 999 ML IV CONT (09:25)
[2024-05-21 09:28] LABS: Alanine Aminotransferase 19 U/L (6-35); Albumin Level 4.1 g/dL (3.5-5.1); Alkaline Phosphatase 48 U/L (38-126); Anion Gap 8 mmol/L (4-12); Aspartate Amino Transferase 29 U/L (14-36); Bilirubin,Total 0.9 mg/dL (0.2-1.3); Blood Urea Nitrogen 11 mg/dL (7-17); Carbon Dioxide 22 mmol/L (22-30); Chloride 105 mmol/L (98-107); Estimated CRCL calculation 116 ml/min; Estimated Glomerular Filt Rate > 60; Glucose 110 mg/dL (65-110); Potassium 3.7 mmol/L (3.4-5.0); Sodium 135 mmol/L (137-145)
[2024-05-21 09:41] LABS: Add Urine Microscopic? YES; Appearance Urine Cloudy (Clear); Bacteria Urine None Seen /hpf; Bilirubin Urine Negative (Negative); Blood Urine Negative (Negative); Color Urine Dark Yellow (Yellow); Glucose Urine UA Negative (Negative); Ketones Urine Trace mg/dL (Negative); Leukocyte Esterase Ur Negative LEU/UL (Negative); Nitrate Urine Negative (Negative); Non Pathogenic Casts 0-2; Protein Urine Trace mg/dL (Negative); RBC Urine 0-2 /hpf (0-2); Specific Grav Ur 1.028 (1.001-1.035); Squamous Epithelial Cell Urine Moderate /hpf (Few); Urobilinogen Urine 0.2 mg/dL (<2.0); WBC Urine 0-5 /hpf (0-3); pH Urine 5.5 (5.0-9.0)
[2024-05-21 09:52] LABS: Band Neutrophils Percent 15 % (0-6); Lymphocytes Absolute Manual 1.87 K/mm3 (1.1-4.5); Lymphocytes Percent Manual 7 % (18-44); Monocytes Absolute Manual 0.53 K/mm3 (0.1-0.90); Monocytes Percent Manual 2 % (3-9); Neutrophils Absolute Manual 24.38 K/mm3 (1.7-7.2); Neutrophils Percent Manual 76 % (46-73); Platelet Estimate Adequate (Adequate); Schistocytes None Seen; Total Cells Counted 100
[2024-05-21 10:27] LABS: Fractional Inspired Oxygen 21 %; HCO3 VBG 23.7 mEq/l (24.0-30.0); PCO2 VBG 44.5 mmHg (42.0-48.0); PO2 VBG 31.1 mmHg (35.0-45.0); pH VBG 7.344 (7.300-7.400)
[2024-05-21 10:28] LABS: Device ROOM AIR
[2024-05-21 11:08] LABS: Influenza A QL RT-PCR Negative (Negative); Influenza B QL RT-PCR Negative (Negative); RSV RNA, RT-PCR Negative (Negative); SARS-CoV-2 RNA PCR Negative (Negative)
[2024-05-21] MEDS: CEFEPIME 2 GM/NS 50 ML 2 GM/50 ML BAG IVPB ×2 (11:51→20:53)
[2024-05-21 12:11] LABS: Reflex Lactic Acid Yes or No Add Lactic
--- NOTE | 2024-05-21 12:11 | PC.NURSE ---
Patient placed in hospital bed for comfort.
[2024-05-21] MEDS: AZITHROMYCIN 500 MG/NS 250 ML 500 MG/250 ML BAG 250 MG IVPB (12:41)
[2024-05-21 13:03] LABS: Lactic Acid 1.5 mmol/L (0.7-2.0)
--- NOTE | 2024-05-21 13:29 | ED.GENADULT ---
HPI - General Adult General Chief complaint: Urogenital-Female Stated complaint: flu Time Seen by Provider: 05/21/24 09:01 History of Present Illness HPI narrative: This is a 41-year-old female presenting ED with chief complaint of flu-like symptoms. Patient says that she has been having fevers and chills up to 100. She has had nausea and vomiting as well as a racing heart and general malaise/fatigue-. She had a UTI that was diagnosed several days ago in urgent care and treated with cefdinir. Patient denies fevers chills or abdominal pain. Patient is on rituximab for MS and states that she has persistently low/undetectable B counts. Related Data Home Medications Medication Instructions Recorded Confirmed tizanidine 4 mg tablet 6 mg PO HS 05/10/19 04/20/24 baclofen 20 mg tablet 20 mg PO BID 12/28/20 04/20/24 gabapentin 600 mg tablet 600 mg PO TID 03/25/23 04/20/24 linaclotide 290 mcg capsule 290 mcg PO DAILY 03/25/23 04/20/24 (Linzess) omeprazole 40 mg capsule,delayed 40 mg PO DAILY 03/25/23 04/20/24 release simvastatin 20 mg tablet 20 mg PO DAILY 02/27/24 04/20/24 Allergies Allergy/AdvReac Type Severity Reaction Status Date / Time Penicillins Allergy Unknown Unknown Verified 05/21/24 09:02 Sulfa (Sulfonamide Allergy Unknown Unknown Verified 05/21/24 09:02 Antibiotics) PMFSH Past Medical History Medical History Anxiety Asthma Diabetes GERD (gastroesophageal reflux disease) Heart disease Hypertension Multiple sclerosis Surgical History Surgical History History of appendectomy History of partial hysterectomy Family History Family History Mother Asthma Cancer Hypertension Father Cancer Depression Heart disease Alcoholism Sibling Cancer Grandparent Cancer Social History Social History Smoking status: Never smoker Second hand tobacco smoke exposure: No Alcohol intake: never Substance use: never Substance use type: does not use Living arrangements: alone Gender identity (if verbalized by the patient): Female Sexual Orientation (if Verbalized by the Patient): Straight or Heterosexual Exam Narrative: APPEARANCE: No apparent distress. Head: atraumatic. EYES: EOMI, NOSE: Atraumatic NECK: Trachea midline RESPIRATORY: No increased rate of breathing Clear to auscultation CARDIOVASCULAR: tachycardic, no peripheral ABDOMINAL: soft nontender no guarding or rebound MUSCULOSKELETAl: No obvious deformities NEURO: Alert. Moving 4/4 extremities SKIN:: Warm, dry. Normal color PSYCHIATRIC: Normal affect Course Vital Signs Vital signs: Vital Signs Temperature 98.4 F 05/21/24 08:54 Pulse Rate 116 H 05/21/24 08:54 Respiratory Rate 16 05/21/24 08:54 Blood Pressure 126/88 05/21/24 08:54 Pulse Oximetry 97 05/21/24 08:54 Oxygen Delivery Room Air 05/21/24 08:54 Temperature 98.4 F 05/21/24 08:54 Pulse Rate 96 05/21/24 12:11 Respiratory Rate 18 05/21/24 12:11 Blood Pressure 126/78 05/21/24 12:11 Pulse Oximetry 98 05/21/24 12:11 Oxygen Delivery Room Air 05/21/24 08:54 Medical Decision Making MDM Narrative Medical decision making narrative: -Course: 49-year-old female who is immunocompromised rituximab for presenting with fevers and tachycardia. Sepsis workup ordered. significant for right-sided pneumonia. White count 26.8. Lactic 2.5 which cleared to 1.5 with fluid resuscitation. no oxygen requirement. Initially tachycardic in the 130s but improved after 30 cc/kilogram bolus. Patient's immunocompromised rituximab and started on broad-spectrum antibiotics with cefepime azithromycin and vancomycin. I initially tried to transfer the patient to the [facility] system and our hospitalist did not believe that the patient required transfer and could be treated at our hospital. case was discussed with Anika who believes that she can be managed here. Patient was admitted. -DDX includes but is not limited to: UTI, sepsis, pneumonia, dehydration, viral syndrome -Co-morbidities complicating care: MS on rituximab, hypothyroid Vital Signs Vital Signs: Vital Signs Temperature 98.4 F 05/21/24 08:54 Pulse Rate 116 H 05/21/24 08:54 Respiratory Rate 16 05/21/24 08:54 Blood Pressure 126/88 05/21/24 08:54 Pulse Oximetry 97 05/21/24 08:54 Oxygen Delivery Room Air 05/21/24 08:54 Temperature 98.4 F 05/21/24 08:54 Pulse Rate 96 05/21/24 12:11 Respiratory Rate 18 05/21/24 12:11 Blood Pressure 126/78 05/21/24 12:11 Pulse Oximetry 98 05/21/24 12:11 Oxygen Delivery Room Air 05/21/24 08:54 Lab Data 05/21/24 09:06 05/21/24 09:06 Labs: Lab Results 05/21/24 05/21/24 05/21/24 Range/Units 09:06 09:28 10:16 WBC 26.8 H (4.5-10.0) K/mm3 RBC 4.81 (4.2-5.4) M/mm3 Hgb 15.0 (12.0-15.0) g/dL Hct 43.8 (37.0-47.0) % MCV 91.1 (80-100) fl MCH 31.2 (26-34) pg MCHC 34.2 (32-36) g/dl RDW 12.0 (11.5-14.5) % Plt Count 250 (150-375) k/mm3 MPV 9.8 (7.4-10.4) fl Immature Gran % (Auto) Not Reportable Neut % (Auto) Not Reportable Lymph % (Auto) Not Reportable [place] % (Auto) Not Reportable Eos % (Auto) Not Reportable Baso % (Auto) Not Reportable Lymph # (Auto) Not Reportable [place] # (Auto) Not Reportable Eos # (Auto) Not Reportable Baso # (Auto) Not Reportable Abs Immat Gran (auto) Not Reportable Absolute Neuts (auto) Not Reportable Absolute Nucleated RBC Not Reportable Total Counted 100 Neutrophils % (Manual) 76 H (46-73) % Band Neutrophils % 15 H (0-6) % Lymphocytes % (Manual) 7 L (18-44) % Monocytes % (Manual) 2 L (3-9) % Nucleated RBC % Not Reportable Abs Neuts (Manual) 24.38 H (1.7-7.2) K/mm3 Abs Lymphs (Manual) 1.87 (1.1-4.5) K/mm3 Abs Monocytes (Manual) 0.53 (0.1-0.90) K/mm3 Platelet Estimate Adequate (Adequate) Schistocytes None seen Sodium 135 L (137-145) mmol/L Potassium 3.7 (3.4-5.0) mmol/L Chloride 105 (98-107) mmol/L Carbon Dioxide 22 (22-30) mmol/L Anion Gap 8 (4-12) mmol/L BUN 11 (7-17) mg/dL Creatinine 0.50 L (0.7-1.0) mg/dL Estim Creat Clear Calc 116 ml/min Estimated GFR > 60 (59 - ) Glucose 110 (65-110) mg/dL Lactic Acid 2.5 H (0.7-2.0) mmol/L Calcium 9.0 (8.4-10.2) mg/dL Total Bilirubin 0.9 (0.2-1.3) mg/dL AST 29 (14-36) U/L ALT 19 (6-35) U/L Alkaline Phosphatase 48 (38-126) U/L Total Protein 7.0 (6.3-8.2) g/dL Albumin 4.1 (3.5-5.1) g/dL Urine Color Dark yellow (Yellow) Urine Appearance Cloudy H (Clear) Urine pH 5.5 (5.0-9.0) Ur Specific [place] 1.028 (1.001-1.035) Urine Protein Trace (Negative) mg/dL Urine Glucose (UA) Negative (Negative) mg/dL Urine Ketones Trace H (Negative) mg/dL Ur Blood (Man) Negative (Negative) Urine Nitrate Negative (Negative) Urine Bilirubin Negative (Negative) Urine Urobilinogen 0.2 (<2.0) mg/dL Leukocyte Esterase Rfl Negative (Negative) DIANA/UL Urine RBC 0-2 (0-2) /hpf Urine WBC 0-5 (0-3) /hpf Ur Squamous Epith Cells Moderate (Few) /hpf Urine Bacteria None seen /hpf Urine Casts 0-2 Nasal MRSA (PCR) Influenza A (RT-PCR) Negative (Negative) Influenza B (RT-PCR) Negative (Negative) RSV (RT-PCR) Negative (Negative) SARS-CoV-2 RNA (RT-PCR) Negative (Negative) 05/21/24 Range/Units 12:46 WBC (4.5-10.0) K/mm3 RBC (4.2-5.4) M/mm3 Hgb (12.0-15.0) g/dL Hct (37.0-47.0) % MCV (80-100) fl MCH (26-34) pg MCHC (32-36) g/dl RDW (11.5-14.5) % Plt Count (150-375) k/mm3 MPV (7.4-10.4) fl Immature Gran % (Auto) Neut % (Auto) Lymph % (Auto) [place] % (Auto) Eos % (Auto) Baso % (Auto) Lymph # (Auto) [place] # (Auto) Eos # (Auto) Baso # (Auto) Abs Immat Gran (auto) Absolute Neuts (auto) Absolute Nucleated RBC Total Counted Neutrophils % (Manual) (46-73) % Band Neutrophils % (0-6) % Lymphocytes % (Manual) (18-44) % Monocytes % (Manual) (3-9) % Nucleated RBC % Abs Neuts (Manual) (1.7-7.2) K/mm3 Abs Lymphs (Manual) (1.1-4.5) K/mm3 Abs Monocytes (Manual) (0.1-0.90) K/mm3 Platelet Estimate (Adequate) Schistocytes Sodium (137-145) mmol/L Potassium (3.4-5.0) mmol/L Chloride (98-107) mmol/L Carbon Dioxide (22-30) mmol/L Anion Gap (4-12) mmol/L BUN (7-17) mg/dL Creatinine (0.7-1.0) mg/dL Estim Creat Clear Calc ml/min Estimated GFR (59 - ) Glucose (65-110) mg/dL Lactic Acid 1.5 (0.7-2.0) mmol/L Calcium (8.4-10.2) mg/dL Total Bilirubin (0.2-1.3) mg/dL AST (14-36) U/L ALT (6-35) U/L Alkaline Phosphatase (38-126) U/L Total Protein (6.3-8.2) g/dL Albumin (3.5-5.1) g/dL Urine Color (Yellow) Urine Appearance (Clear) Urine pH (5.0-9.0) Ur Specific [place] (1.001-1.035) Urine Protein (Negative) mg/dL Urine Glucose (UA) (Negative) mg/dL Urine Ketones (Negative) mg/dL Ur Blood (Man) (Negative) Urine Nitrate (Negative) Urine Bilirubin (Negative) Urine Urobilinogen (<2.0) mg/dL Leukocyte Esterase Rfl (Negative) DIANA/UL Urine RBC (0-2) /hpf Urine WBC (0-3) /hpf Ur Squamous Epith Cells (Few) /hpf Urine Bacteria /hpf Urine Casts Nasal MRSA (PCR) Pending Influenza A (RT-PCR) (Negative) Influenza B (RT-PCR) (Negative) RSV (RT-PCR) (Negative) SARS-CoV-2 RNA (RT-PCR) (Negative) ABG Data ABG results: 05/21/24 10:16 VBG pH 7.344 VBG pCO2 44.5 VBG pO2 31.1 L VBG HCO3 23.7 L O2 Delivery Device Room air O2 Liters/Min Not Reportable FiO2 21 Critical Care Time Critical Care Time Critical Care Time: Yes Total Critical Care Time: 35 Discharge Plan Discharge Clinical Impression: Multiple sclerosis, Pneumonia, Sepsis, Immunocompromised Patient Disposition: Still a Patient Condition: Stable Prescriptions: No Action baclofen 20 mg tablet 20 mg PO BID gabapentin 600 mg tablet 600 mg PO TID omeprazole 40 mg capsule,delayed release(DR/EC) 40 mg PO DAILY Linzess 290 mcg capsule 290 mcg PO DAILY nystatin 100,000 unit/gram powder 1 applic topical TID Qty: 60 0RF simvastatin 20 mg tablet 20 mg PO DAILY tizanidine 4 mg Tablet 6 mg PO HS Mounjaro 12.5 mg/0.5 mL pen injector 12.5 mg subcut WEEKLY Qty: 2 0RF hydrocodone-acetaminophen 10-325 mg tablet 1 tablet PO Q4H PRN (Reason: pain (scale score 7-10)) Qty: 150 0RF lorazepam 2 mg tablet 2 mg PO HS PRN (Reason: Anxiety) Qty: 30 0RF Follow-up/Referrals: Reginald Lock MD [Primary Care Provider] -
--- NOTE | 2024-05-21 13:30 | P.HP_ITS ---
H&P: HPI History of Present Illness Date/Time: 05/21/24 13:30 Chief Complaint: Upper respiratory symptoms Narrative: This is a 49-year-old female with a significant past medical history of anxiety, asthma, diabetes, GERD, heart disease, hypertension, multiple sclerosis who presented to the hospital with complaints of upper respiratory symptoms. she states that she has not felt well since last Saturday when she got a UTI and was placed on cefdinir on Saturday whenever she went to the urgent care for her urinary tract infection. Last night she started having nausea vomiting and dry heaves along with some dizziness palpitations and a dry hacky cough. She does note that she has had diarrhea. She denies any fever, chills, nausea, vomiting, diarrhea, abdominal pain, chest pain, shortness a breath now.Workup in the hospital included chest x-ray which showed subtle opacities in the right lower lung zone representing pneumonia. Abdomen/ pelvis CT shown ground-glass opacities in the right middle and lower lobe consistent with pneumonia, fluid in the proximal colon consistent with nonspecific diarrhea. Initial labs showed a white blood cell count of 26.8, band neutrophils 15, sodium 135, creatinine 0.50, .lactic acid 2.5 1.5. UA was obtained which showed cloudy urine appearance, trace urine ketone, otherwise unremarkable. Respiratory panel was negative for influenza a and B, RSV, COVID. Blood cultures were obtained and are pending. EKG showed sinus tachycardia with incomplete right bundle branch block rate of 109, QTC 436. Patient was given 3 L of normal saline, Tylenol, azithromycin cefepime and vancomycin while in the ED. Review of Systems Review of Systems: All systems reviewed & are unremarkable except as noted in HPI and below Constitutional: Constitutional: Reports as per HPI and Reports no additional constitutional complaints Eyes: Eyes: Reports as per HPI and Reports no additional eye complaints ENT: Reports system reviewed and no additional complaints, except as documented and Reports as per HPI Cardiovascular: Cardiovascular: Reports as per HPI and Reports no additional cardiovascular complaints Respiratory: Respiratory: Reports as per HPI and Reports no additional respiratory complaints Gastrointestinal: Gastrointestinal: Reports as per HPI and Reports no additional gastrointestinal complaints Genitourinary: Genitourinary: Reports no additional female genitourinary complaints and Reports as per HPI Musculoskeletal: Musculoskeletal: Reports no additional musculoskeletal complaints and Reports as per HPI Integumentary/Breasts: Skin/Breast: Reports system reviewed and no additional complaints, except as docu and Reports as per HPI Neurologic: Reports system reviewed and no additional complaints, except as documented and Reports as per HPI Psychiatric: Psychiatric: Reports no additional psychiatric complaints and Reports as per HPI [facility] Past Medical History Medical History (Updated 05/21/24 @ 20:53 by Anika Krishnmaurthy APRN) Anxiety Asthma Diabetes GERD (gastroesophageal reflux disease) Heart disease Hyperlipidemia Hypertension Irritable bowel syndrome Multiple sclerosis Surgical History Surgical History History of appendectomy History of partial hysterectomy Family History Family History Mother Asthma Cancer Hypertension Father Cancer Depression Heart disease Alcoholism Sibling Cancer Grandparent Cancer Social History Social History Smoking status: Never smoker Second hand tobacco smoke exposure: No Alcohol intake: never Substance use: never Substance use type: does not use Do You Feel Safe in your Home?: Yes Lack of Transportation: No Lack of Food: Never True Current Housing: I Have Housing Concerned About Future Housing: No Difficulty Paying Gas/Electric Bills: No Difficulty Paying for Meds: No Currently Unemployed: No Education: High School Diploma/GED Difficulty w/ Childcare or Family Care: No Living arrangements: alone Gender identity (if verbalized by the patient): Female Sexual Orientation (if Verbalized by the Patient): Straight or Heterosexual Spiritual care concerns: No Meds Home Medications and Allergies Home Medications Medication Instructions Recorded Confirmed Type tizanidine 4 mg tablet 6 mg PO HS 05/10/19 05/21/24 History baclofen 20 mg tablet 40 mg PO BID 12/28/20 05/21/24 History gabapentin 600 mg tablet 600 mg PO TID 03/25/23 05/21/24 History omeprazole 40 mg capsule,delayed 40 mg PO DAILY 03/25/23 05/21/24 History release tirzepatide 12.5 mg/0.5 mL 12.5 mg (0.5 mL) subcut WEEKLY #2 04/14/24 05/21/24 Rx subcutaneous pen injector mL (Steve) hydrocodone 10 mg-acetaminophen 1 tablet PO Q4H PRN pain (scale 10/29/24 11/21/24 Rx 325 mg tablet score 7-10) #150 tabs amitriptyline 10 mg tablet 10 mg PO QHS 05/21/24 05/21/24 History baclofen 20 mg tablet 80 mg PO QHS 05/21/24 05/21/24 History lorazepam 2 mg tablet 2 mg PO HS 05/21/24 05/21/24 History nystatin 100,000 unit/gram topical 1 applic topical TID PRN rash on 05/21/24 05/21/24 History powder stomach Allergies Allergy/AdvReac Type Severity Reaction Status Date / Time Penicillins Allergy Unknown Unknown Verified 05/21/24 09:02 Sulfa (Sulfonamide Allergy Unknown Unknown Verified 05/21/24 09:02 Antibiotics) Vital Signs Vital Signs - 24 hr 05/21/24 08:54 05/21/24 09:23 05/21/24 12:11 Temperature 98.4 F Pulse Rate 116 H 121 H 96 Respiratory Rate 16 16 18 Blood Pressure 126/88 127/93 H 126/78 Pulse Oximetry 97 97 98 Oxygen Delivery Room Air Exam Narrative: General: In no acute distress, well nourished Head: atraumatic, no encephalopathy Eyes:PERRLA, sclera clear ENT: moist mucous membranes, nasal passages clear Neck: supple, no JVD, no adenopathy, trachea midline Cardiac: Normal S1 and S2. No murmur, gallops or friction rubs, peripheral pulses intact. Respiratory: Lungs clear to auscultation, diminished in bases, no adventitious lung sounds , currently on room air Gastrointestinal: soft, non-distended, non-tender, normoactive bowel sounds. : voiding without difficulty. Extremities: moves all extremities well, no edema Skin: clean, dry, intact. No wounds or lesions. Neuro: Alert and oriented x4, cranial nerves intact, no neuro deficits. Psych: normal mood, normal affect, interactive H&P: Results Labs Labs: Short CBC 05/21/24 Range/Units 09:06 WBC 26.8 H (4.5-10.0) K/mm3 Hgb 15.0 (12.0-15.0) g/dL Hct 43.8 (37.0-47.0) % Plt Count 250 (150-375) k/mm3 [facility] 05/21/24 09:06 Sodium 135 L Potassium 3.7 Chloride 105 Carbon Dioxide 22 BUN 11 Creatinine 0.50 L Glucose 110 Calcium 9.0 Liver Function 05/21/24 Range/Units 09:06 Total Bilirubin 0.9 (0.2-1.3) mg/dL AST 29 (14-36) U/L ALT 19 (6-35) U/L Alkaline Phosphatase 48 (38-126) U/L Albumin 4.1 (3.5-5.1) g/dL Urine 05/21/24 Range/Units 09:28 Urine Color Dark yellow (Yellow) Urine Appearance Cloudy H (Clear) Urine pH 5.5 (5.0-9.0) Ur Specific [place] 1.028 (1.001-1.035) Urine Protein Trace (Negative) mg/dL Urine Glucose (UA) Negative (Negative) mg/dL Imaging Chest x-ray: Radiologist's impression: EXAMINATION: XR chest 1V portable DATE: 05/21/2024 10:42 INDICATION: Sepsis and nausea TECHNIQUE: frontal view of the chest was obtained. COMPARISON: None FINDINGS: Subtle ground glass opacities in the right lower lung zone. No other airspace opacities, pleural effusion or pneumothorax. The cardiomediastinal silhouette is normal. Mild to moderate thoracic spondylosis. IMPRESSION: 1. Subtle opacity right lower lung zone which could represent pneumonia, atelectasis or asymmetric mild pulmonary edema. Reviewed, dictated and finalized at location [facility] [employer] abdomen/pelvis CT: Radiologist's impression: EXAMINATION: CT abdomen pelvis w con DATE: 05/21/2024 11:13 INDICATION: Urinary tract infection with treatment failure TECHNIQUE: Computed tomography (CT) of the abdomen and pelvis was performed with 100 mL Omnipaque-350 intravenous contrast. Automated exposure control and iterative reconstruction technique were employed. The dose-length product was 927.43 mGy-cm. COMPARISON: None FINDINGS: Multiple small centrilobular groundglass opacities in the right middle and lower lobes suspicious for pneumonia with differential including pulmonary hemorrhage, aspiration or less likely mild pulmonary edema. Heart size is normal. No pericardial or pleural effusion. Postoperative change of prior sleeve gastrectomy with suture line along the greater curvature of the stomach. Cholecystectomy clips at the gallbladder fossa. Liver, pancreas, bilateral adrenal glands and kidneys are normal. Unchanged 11 mm splenic cyst. There is some fluid in the proximal colon consistent with nonspecific diarrhea. No abnormal bowel wall thickening or obstruction. There are few diverticula along the sigmoid colon without adjacent comparison to suggest diverticulitis. 2.3 cm left adnexal cyst. Right adnexa is unremarkable. The uterus is not identified and has likely been surgically resected. Bladder is unremarkable. No free intraperitoneal gas or fluid. No pathologically enlarged abdominal or pelvic lymphadenopathy. 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 Moderate lumbar and lower thoracic spondylosis. IMPRESSION: 1. Centrilobular groundglass opacities in the right middle and lower lobes consistent with pneumonia with differential including aspiration, pulmonary hemorrhage or less likely mild pulmonary edema. 2. Fluid in the proximal colon consistent with nonspecific diarrhea. Correlate clinically for possible gastroenteritis. Reviewed, dictated and finalized at location [facility] [employer] Assessment and Plan Assessment and plan (1) Pneumonia: Code(s): J18.9 - Pneumonia, unspecified organism Status: Acute Assessment and Plan: * chest x-ray showing subtle opacity right lower lung zone representing pneumonia * abdomen/pelvis CT showing ground-glass opacities in the right middle and lower lung zones consistent with pneumonia, fluid in the proximal colon consistent with nonspecific diarrhea possible gastroenteritis. * White blood cell count 26.8, band neutrophils 15, lactic acid 2.5 which corrected after 3 L of fluid in the ED to 1.5 * continue continue cefepime and azithromycin * MRSA negative, we will discontinue vancomycin * will also check urine strep, urine Legionella, mycoplasma * respiratory panel was obtained and was negative for influenza a and B, RSV, COVID * continue reverse isolation (2) Bandemia: Code(s): D72.825 - Bandemia Status: Acute Assessment and Plan: * band neutrophils 15 * pneumonia with bandemia complicated by a immunosuppression due to use of rituximab * continue broad-spectrum antibiotics for now (3) Acute UTI: Code(s): N39.0 - Urinary tract infection, site not specified Status: Acute Assessment and Plan: * recently diagnosed with a UTI and started on cefdinir. She did not finish all of her oral antibiotics as of yet. * We will hold this medication and continue which is cefepime and azithromycin * we will repeat her urine culture now * UA only showed cloudy appearance, trace urine ketones, otherwise negative (4) Immunocompromised: Code(s): D84.9 - Immunodeficiency, unspecified Status: Acute Assessment and Plan: * patient currently on rituximab for her MS which can decrease her immune response * continue broad-spectrum antibiotics for now (5) Multiple sclerosis: Code(s): G35 - Multiple sclerosis Status: Acute Assessment and Plan: * continue Neurontin, Zanaflex (6) Muscle spasticity: Code(s): M62.838 - Other muscle spasm Status: Acute Assessment and Plan: * due to her MS * currently on Zanaflex (7) Irritable bowel syndrome: Code(s): K58.9 - Irritable bowel syndrome, unspecified Status: Acute Assessment and Plan: * continue Linzess (8) Diabetes: Code(s): E11.9 - Type 2 diabetes mellitus without complications Status: Acute Assessment and Plan: * Blood sugars ranging 82-110 * Hgb A1C 5.5 * Accu checks AC/HS * moderate dose SSI ordered * hypoglycemic protocol in place * Diabetic diet ordered * hold Mounjaro (9) Hypertension: Code(s): I10 - Essential (primary) hypertension Status: Acute Assessment and Plan: * blood pressure ranging 121/70 to 130/76 * patient is not on any home medications for blood pressure * continue to monitor (10) Anxiety: Code(s): F41.9 - Anxiety disorder, unspecified Status: Acute Assessment and Plan: * continue lorazepam (11) Hyperlipidemia: Code(s): E78.5 - Hyperlipidemia, unspecified Status: Acute Assessment and Plan: * continue simvastatin Quality VTE Prophylaxis VTE prophylaxis: pharmacologic ordered Hospitalist [facility] Advance Care Plan I have confirmed that the patient's Advanced Care Plan is present, code status is documented, or surrogate decision maker is listed in patient medical record.: Yes Medication Reconciliation I have utilized all available resources to obtain, update and review the patients current medications (includes all prescriptions, OTC, herbals, ca nnabis, and nutritional supplements).: Yes
[2024-05-21] MEDS: VANCOMYCIN 2,000 MG/NS 500 ML 2,000 MG/500 ML BAG 250 MG IVPB (13:54)
[2024-05-21] MEDS: LACTATED RINGERS 1,000 ML 125 ML IV CONT (13:56)
[2024-05-21 14:03] LABS: MRSA (PCR) NOT DETECTED (NOT DETECTE)
--- NOTE | 2024-05-21 14:39 | PC.NURSE ---
Ordered meal tray for pt, requested for it to go upstairs to room 324.
[2024-05-21] MEDS: ACETAMINOPHEN 325 MG TABLET 650 MG PO (16:13)
[2024-05-21] MEDS: ENOXAPARIN 40 MG/0.4 ML SYRINGE SUB-Q (16:14)
--- NOTE | 2024-05-21 16:43 | PC.NURSE ---
This patient, Verónica Jacobo, was admitted to [facility] Surg Room 324-01. Patient/family oriented to hospital policies and general routines including ID bracelet, bed and alarms, visiting hours, pain management, procedures, bathroom and other care routines, personal items, smoking policy, room service/diet, and visiting hours. Information on how to activate the Rapid Response Team has been discussed. Patient/Family are encouraged to report perceived risks to care and to ask questions if they do not understand what they are told or what they should do.
[2024-05-21 21:19] LABS: Glucose Point of Care 97 mg/dl (65-105)
[2024-05-21] MEDS: LORazepam (*CRX) 1 MG TABLET 2 MG PO (21:37)
[2024-05-21] MEDS: TIZANIDINE HCL 2 MG TABLET 6 MG PO (21:37)
[2024-05-21] MEDS: AMITRIPTYLINE HCL 10 MG TABLET PO (21:37)
[2024-05-22] VITALS (10 sets, daily range): BP systolic 110–115; BP diastolic 48–80; PULSE 62–88; RESP 18; TEMP 36.1–37.1; O2SAT 97–100
[2024-05-22] MEDS: IPRATROPIUM 0.5 MG/ALBUTEROL SULFATE 2.5 MG AMPUL.NEB 3 ML INHALATION ×3 (01:24→20:12)
[2024-05-22] MEDS: LACTATED RINGERS 1,000 ML 125 ML IV CONT ×2 (04:29→14:42)
[2024-05-22] MEDS: GABAPENTIN 300 MG CAPSULE 600 MG PO ×3 (05:41→20:33)
[2024-05-22 06:34] LABS: Basophils Percent Auto 0.1 % (0.2-1.2); Eosinophils Absolute Auto 0.1 K/mm3 (0-0.3); Eosinophils Percent Auto 0.7 % (0-4.4); Hematocrit 35.2 % (37.0-47.0); Hemoglobin 11.9 g/dL (12.0-15.0); Immature Granulocyte Absolute 0.06 K/mm3 (0.00-0.031); Immature Granulocyte Percent A 0.4 % (0-0.5); Lymphocytes Absolute Auto 1.62 K/mm3 (0.9-3.2); Lymphocytes Percent Auto 10.3 % (18.3-44.2); Mean Corpuscular HGB Conc 33.8 g/dl (32-36); Mean Corpuscular Hemoglobin 31.5 pg (26-34); Mean Corpuscular Volume 93.1 fl (80-100); Mean Platelet Volume 9.7 fl (7.4-10.4); Monocytes Absolute Auto 0.8 K/mm3 (0.1-0.6); Neutrophils Absolute Auto 13.1 K/mm3 (1.3-6.7); Neutrophils Percent Auto 83.5 % (45.5-73.1); Platelet Count Result 206 k/mm3 (150-375); Red Blood Count 3.78 M/mm3 (4.2-5.4); Red Cell Distribution Width 12.2 % (11.5-14.5); White Blood Count 15.7 K/mm3 (4.5-10.0)
[2024-05-22 06:53] LABS: Alanine Aminotransferase 14 U/L (6-35); Alkaline Phosphatase 42 U/L (38-126); Anion Gap 3 mmol/L (4-12); Aspartate Amino Transferase 19 U/L (14-36); Bilirubin,Total 0.6 mg/dL (0.2-1.3); Blood Urea Nitrogen 5 mg/dL (7-17); Calcium 8.2 mg/dL (8.4-10.2); Carbon Dioxide 25 mmol/L (22-30); Chloride 108 mmol/L (98-107); Estimated CRCL calculation 112 ml/min; Estimated Glomerular Filt Rate > 60; Glucose 86 mg/dL (65-110); Magnesium 2.1 mg/dL (1.6-2.3); Potassium 3.5 mmol/L (3.4-5.0); Sodium 136 mmol/L (137-145)
[2024-05-22 07:35] LABS: Glucose Point of Care 85 mg/dl (65-105)
[2024-05-22] MEDS: BACLOFEN 10 MG TABLET 40 MG PO ×2 (08:28→14:42)
[2024-05-22] MEDS: guaiFENesin 600 MG/DEXTROMETHORPHAN 30 MG SR TAB 12 HR 1 TAB PO ×2 (08:28→22:04)
[2024-05-22] MEDS: CEFEPIME 2 GM/NS 50 ML 2 GM/50 ML BAG IVPB ×2 (08:33→22:05)
[2024-05-22] MEDS: ENOXAPARIN 40 MG/0.4 ML SYRINGE SUB-Q (08:33)
[2024-05-22] MEDS: AZITHROMYCIN 500 MG/NS 250 ML 500 MG/250 ML BAG 250 MG IVPB (08:33)
[2024-05-22 11:33] LABS: Glucose Point of Care 78 mg/dl (65-105)
--- NOTE | 2024-05-22 14:44 | P.PNIM_ITS ---
Progress Note: A&P Assessment and Plan (1) Pneumonia: Code(s): J18.9 - Pneumonia, unspecified organism Status: Acute Assessment and Plan: * chest x-ray showing subtle opacity right lower lung zone representing pneumonia * abdomen/pelvis CT showing ground-glass opacities in the right middle and lower lung zones consistent with pneumonia, fluid in the proximal colon consistent with nonspecific diarrhea possible gastroenteritis. * White blood cell count initially 26.8, band neutrophils 15, lactic acid 2.5 which corrected after 3 L of fluid in the ED to 1.5 * continue continue cefepime and azithromycin * MRSA negative, we will discontinue vancomycin * will also check urine strep, urine Legionella, mycoplasma * respiratory panel was obtained and was negative for influenza a and B, RSV, COVID * continue reverse isolation * white blood count down to 15.7 * blood cultures showing no growth on preliminary read (2) Bandemia: Code(s): D72.825 - Bandemia Status: Acute Assessment and Plan: * band neutrophils initially 15 * pneumonia with bandemia complicated by a immunosuppression due to use of rituximab * continue broad-spectrum antibiotics for now (3) Acute UTI: Code(s): N39.0 - Urinary tract infection, site not specified Status: Acute Assessment and Plan: * recently diagnosed with a UTI and started on cefdinir. She did not finish all of her oral antibiotics as of yet. * We will hold this medication and continue which is cefepime and azithromycin * we will repeat her urine culture now * UA only showed cloudy appearance, trace urine ketones, otherwise negative * Pyridium ordered for dysuria (4) Immunocompromised: Code(s): D84.9 - Immunodeficiency, unspecified Status: Acute Assessment and Plan: * patient currently on rituximab for her MS which can decrease her immune response * continue broad-spectrum antibiotics for now (5) Multiple sclerosis: Code(s): G35 - Multiple sclerosis Status: Acute Assessment and Plan: * continue Neurontin, Zanaflex (6) Muscle spasticity: Code(s): M62.838 - Other muscle spasm Status: Acute Assessment and Plan: * due to her MS * currently on Zanaflex (7) Irritable bowel syndrome: Code(s): K58.9 - Irritable bowel syndrome, unspecified Status: Acute Assessment and Plan: * continue Linzess (8) Diabetes: Code(s): E11.9 - Type 2 diabetes mellitus without complications Status: Acute Assessment and Plan: * Blood sugars ranging 82-110 * Hgb A1C 5.5 * Accu checks AC/HS * moderate dose SSI ordered * hypoglycemic protocol in place * Diabetic diet ordered * hold Steve (9) Hypertension: Code(s): I10 - Essential (primary) hypertension Status: Acute Assessment and Plan: * blood pressure ranging 121/70 to 130/76 * patient is not on any home medications for blood pressure * continue to monitor (10) Anxiety: Code(s): F41.9 - Anxiety disorder, unspecified Status: Acute Assessment and Plan: * continue lorazepam (11) Hyperlipidemia: Code(s): E78.5 - Hyperlipidemia, unspecified Status: Acute Assessment and Plan: * continue simvastatin Time Spent With Patient Time with patient: 25 - 35 minutes Subjective Date/time seen: 05/22/24 14:44 Interval history: interval history: This is a 49-year-old female with a significant past medical history of anxiety, asthma, diabetes, GERD, heart disease, hypertension, multiple sclerosis who presented to the hospital with complaints of upper respiratory symptoms. she states that she has not felt well since last Saturday when she got a UTI and was placed on cefdinir on Saturday whenever she went to the urgent care for her urinary tract infection. Last night she started having nausea vomiting and dry heaves along with some dizziness palpitations and a dry hacky cough. She does note that she has had diarrhea. She denies any fever, chills, nausea, vomiting, diarrhea, abdominal pain, chest pain, shortness a breath now.Workup in the hospital included chest x-ray which showed subtle opacities in the right lower lung zone representing pneumonia. Abdomen/ pelvis CT shown ground-glass opacities in the right middle and lower lobe consistent with pneumonia, fluid in the proximal colon consistent with nonspecific diarrhea. Initial labs showed a white blood cell count of 26.8, band neutrophils 15, sodium 135, creatinine 0.50, .lactic acid 2.5 1.5. UA was obtained which showed cloudy urine appeara nce, trace urine ketone, otherwise unremarkable. Respiratory panel was negative for influenza a and B, RSV, COVID. Blood cultures were obtained and are pending. EKG showed sinus tachycardia with incomplete right bundle branch block rate of 109, QTC 436. Patient was given 3 L of normal saline, Tylenol, azithromycin cefepime and vancomycin while in the ED. subjective: patient still having dysuria today. last night she took for baclofen, [place], and Neurontin from her own supply. I discussed with her that she should not be taking her own medication while inpatient as we will be managing her medications here. she also states that her had a 102 fever last night and is going to urgent care today. Told her to keep us informed. She had her take ho me her medications. Labs and imaging reviewed Review of Systems Review of Systems: All systems reviewed & are unremarkable except as noted in HPI and below Constitutional: Constitutional: Reports as per HPI and Reports no additional constitutional complaints Eyes: Eyes: Reports as per HPI and Reports no additional eye complaints ENT: Reports system reviewed and no additional complaints, except as documented and Reports as per HPI Cardiovascular: Cardiovascular: Reports as per HPI and Reports no additional cardiovascular complaints Respiratory: Respiratory: Reports as per HPI and Reports no additional respiratory complaints Gastrointestinal: Gastrointestinal: Reports as per HPI and Reports no additional gastrointestinal complaints Genitourinary: Genitourinary: Reports no additional female genitourinary complaints and Reports as per HPI Musculoskeletal: Musculoskeletal: Reports no additional musculoskeletal complaints and Reports as per HPI Integumentary/Breasts: Skin/Breast: Reports system reviewed and no additional complaints, except as docu and Reports as per HPI Neurologic: Reports system reviewed and no additional complaints, except as documented and Reports as per HPI Psychiatric: Psychiatric: Reports no additional psychiatric complaints and Reports as per HPI Exam Narrative: General: In no acute distress, well nourished Cardiac: Normal S1 and S2. No murmur, gallops or friction rubs, peripheral pulses intact. Respiratory: Lungs clear to auscultation, diminished in bases, no adventitious lung sounds , currently on room air Gastrointestinal: soft, non-distended, non-tender, normoactive bowel sounds. : voiding without difficulty. Neuro: Alert and oriented x4 Objective Data Vital Signs Vital Signs: Vital Signs - 24 hr 05/21/24 15:47 05/21/24 18:38 05/21/24 20:00 Temperature 97.7 F Pulse Rate 91 Respiratory Rate 20 Blood Pressure 125/57 L Pulse Oximetry 100 Oxygen Delivery Room Air Room Air 05/21/24 21:10 05/22/24 01:24 05/22/24 01:30 Temperature 96.3 F L Pulse Rate 72 70 70 Respiratory Rate 16 18 Blood Pressure 131/76 Pulse Oximetry 100 98 Oxygen Delivery Room Air 05/22/24 01:34 05/22/24 05:35 05/22/24 07:50 Temperature 98 F Pulse Rate 69 74 Respiratory Rate 18 18 Blood Pressure 115/80 Pulse Oximetry 99 97 Oxygen Delivery Room Air 05/22/24 07:50 05/22/24 08:03 05/22/24 08:00 Temperature Pulse Rate 76 84 Respiratory Rate 18 18 Blood Pressure Pulse Oximetry Oxygen Delivery Room Air Intake/Output Intake/Output: Intake & Output 05/19/24 05/20/24 05/21/24 05/22/24 23:59 23:59 23:59 23:59 Intake Total 5090 1956 Balance 5090 1956 Meds/Results Medications: Active Medications Generic Name Dose Route Start Last Admin Trade Name Freq PRN Reason Stop Dose Admin Acetaminophen 650 mg 05/21/24 13:55 05/21/24 16:13 Acetaminophen 325 Mg Tablet PO 650 mg Q4H PRN Administration Mild Pain (1-3) or Fever Hydrocodone Bitart/Acetaminophen 1 tab 05/21/24 13:55 Hydrocodone/Acetaminophen (*Crx) 5-325 Mg Tablet PO Q4H PRN Moderate Pain (4-6) Hydrocodone Bitart/Acetaminophen 1 tab 05/21/24 20:51 Hydrocodone/Acetaminophen (*Crx) 10-325 Mg Tablet PO Q4H PRN pain (scale score 7-10) Albuterol/Ipratropium 3 ml 05/21/24 23:46 05/22/24 07:49 Ipratropium 0.5 Mg/Albuterol Sulfate 2.5 Mg Ampul.Neb 3 Ml INHALATION 3 ml Q6HRT PRN Administration shortness of breath Amitriptyline HCl 10 mg 05/21/24 21:00 05/21/24 21:37 Amitriptyline Hcl 10 Mg Tablet PO 10 mg QHS LUIS MANUEL Administration Azithromycin 500 mg 05/23/24 09:00 Azithromycin 250 Mg Tablet PO 05/25/24 09:01 DAILY LUIS MANUEL Baclofen 80 mg 05/22/24 21:00 Baclofen 10 Mg Tablet PO QHS LUIS MANUEL Baclofen 40 mg 05/22/24 09:00 05/22/24 14:42 Baclofen 10 Mg Tablet PO 40 mg BID@0900,1300 LUIS MANUEL Administration Dextrose 12.5 gm 05/21/24 13:55 Dextrose 50% 25 Gm/50 Ml Syringe IV PUSH PRN PRN Hypoglycemia Protocol Enoxaparin Sodium 40 mg 05/21/24 14:05 05/22/24 08:33 Enoxaparin 40 Mg/0.4 Ml Syringe SUB-Q 40 mg DAILY LUIS MANUEL Administration Gabapentin 600 mg 05/22/24 06:00 05/22/24 14:42 Gabapentin 300 Mg Capsule PO 600 mg Q8HR LUIS MANUEL Administration Glucagon 1 mg 05/21/24 13:55 Glucagon For Inj 1 Mg Vial IM PRN PRN Hypoglycemia Protocol Glucose 15 gm 05/21/24 13:55 Glucose Oral Gel 15 Gm Of Glucse In 37.5 Gm Tube PO PRN PRN Hypoglycemia Protocol Guaifenesin/Dextromethorphan 1 tab 05/22/24 09:00 05/22/24 08:28 Guaifenesin 600 Mg/Dextromethorphan 30 Mg Sr Tab 12 Hr PO 1 tab Q12HR LUIS MANUEL Administration Lactated Ringer's 1,000 mls @ 125 mls/hr 05/21/24 13:45 05/22/24 14:43 Lr - Lactated Ringers Iv IV CONT Not Given .Q8H LUIS MANUEL Dextrose 1,000 mls @ 100 mls/hr 05/21/24 13:55 Dextrose 5% 1,000 Ml IVPB PRN PRN Hypoglycemia Protocol Cefepime HCl 2 gm in 50 mls @ 100 mls/hr 05/21/24 21:00 05/22/24 08:33 Maxipime 2 Gm/Ns 50 Ml IVPB 100 mls/hr Q12H LUIS MANUEL Administration Insulin Aspart 1 - 3 units 05/21/24 21:00 05/21/24 21:20 Insulin Aspart (*Bkc) 100 Units/Ml SUB-Q Not Given HS LUIS MANUEL Protocol Insulin Aspart 3 - 6 units 05/21/24 17:00 05/22/24 14:43 Insulin Aspart (*Bkc) 100 Units/Ml SUB-Q Not Given TIDWM LUIS MANUEL Protocol Lorazepam 2 mg 05/21/24 21:00 05/21/24 21:37 Lorazepam (*Crx) 1 Mg Tablet PO 2 mg HS LUIS MANUEL Administration Ondansetron HCl 4 mg 05/21/24 13:55 Ondansetron Inj 4 Mg/2 Ml Vial IV PUSH Q6H PRN Nausea And Vomiting Tizanidine HCl 6 mg 05/21/24 21:00 05/21/24 21:37 Tizanidine Hcl 2 Mg Tablet PO 6 mg HS LUIS MANUEL Administration Radiology Results: ITS Impressions Chest X-Ray 05/21/24 10:49 IMPRESSION: 1. Subtle opacity right lower lung zone which could represent pneumonia, atelectasis or asymmetric mild pulmonary edema. Abdomen/Pelvis CT 05/21/24 11:21 IMPRESSION: 1. Centrilobular groundglass opacities in the right middle and lower lobes consistent with pneumonia with differential including aspiration, pulmonary hemorrhage or less likely mild pulmonary edema. 2. Fluid in the proximal colon consistent with nonspecific diarrhea. Correlate clinically for possible gastroenteritis. Labs Labs: Laboratory Results - last 24 hr 05/21/24 05/22/24 05/22/24 21:12 06:28 07:32 WBC 15.7 H RBC 3.78 L Hgb 11.9 L D Hct 35.2 L MCV 93.1 MCH 31.5 MCHC 33.8 RDW 12.2 Plt Count 206 MPV 9.7 Immature Gran % (Auto) 0.4 Neut % (Auto) 83.5 H Lymph % (Auto) 10.3 L [place] % (Auto) 5.0 Eos % (Auto) 0.7 Baso % (Auto) 0.1 L Lymph # (Auto) 1.62 [place] # (Auto) 0.8 H Eos # (Auto) 0.1 Baso # (Auto) 0.0 Abs Immat Gran (auto) 0.06 H Absolute Neuts (auto) 13.1 H Absolute Nucleated RBC 0.000 Nucleated RBC % 0.0 Sodium 136 L Potassium 3.5 Chloride 108 H Carbon Dioxide 25 Anion Gap 3 L BUN 5 L D Creatinine 0.60 L Estim Creat Clear Calc 112 Estimated GFR > 60 Glucose 86 POC Capillary Glucose 97 85 Calcium 8.2 L Magnesium 2.1 Total Bilirubin 0.6 AST 19 ALT 14 Alkaline Phosphatase 42 Total Protein 6.0 L Albumin 3.0 L 05/22/24 11:30 WBC RBC Hgb Hct MCV MCH MCHC RDW Plt Count MPV Immature Gran % (Auto) Neut % (Auto) Lymph % (Auto) [place] % (Auto) Eos % (Auto) Baso % (Auto) Lymph # (Auto) [place] # (Auto) Eos # (Auto) Baso # (Auto) Abs Immat Gran (auto) Absolute Neuts (auto) Absolute Nucleated RBC Nucleated RBC % Sodium Potassium Chloride Carbon Dioxide Anion Gap BUN Creatinine Estim Creat Clear Calc Estimated GFR Glucose POC Capillary Glucose 78 Calcium Magnesium Total Bilirubin AST ALT Alkaline Phosphatase Total Protein Albumin Quality VTE Prophylaxis VTE prophylaxis: pharmacologic ordered
[2024-05-22] MEDS: PHENAZOPYRIDINE HCL 100 MG TABLET 200 MG PO (16:06)
[2024-05-22 19:36] LABS: Glucose Point of Care 69 mg/dl (65-105)
[2024-05-22 20:07] LABS: Glucose Point of Care 124 mg/dl (65-105)
[2024-05-22] MEDS: BACLOFEN 10 MG TABLET 80 MG PO (20:33)
[2024-05-22 21:27] LABS: Glucose Point of Care 104 mg/dl (65-105)
[2024-05-22] MEDS: AMITRIPTYLINE HCL 10 MG TABLET PO (22:04)
[2024-05-22] MEDS: LORazepam (*CRX) 1 MG TABLET 2 MG PO (22:04)
[2024-05-22] MEDS: TIZANIDINE HCL 2 MG TABLET 6 MG PO (22:04)
[2024-05-23 00:12] LABS: Glucose Point of Care 118 mg/dl (65-105)
[2024-05-23] MEDS: LACTATED RINGERS 1,000 ML 125 ML IV CONT ×3 (00:24→19:13)
[2024-05-23 03:52] LABS: Glucose Point of Care 97 mg/dl (65-105)
[2024-05-23 06:00] VITALS: BP 107/67; PULSE 78; RESP 16; TEMP 36.7; O2SAT 97
[2024-05-23 06:26] LABS: Basophils Percent Auto 0.3 % (0.2-1.2); Eosinophils Absolute Auto 0.3 K/mm3 (0-0.3); Eosinophils Percent Auto 2.3 % (0-4.4); Hematocrit 35.6 % (37.0-47.0); Hemoglobin 11.9 g/dL (12.0-15.0); Immature Granulocyte Absolute 0.04 K/mm3 (0.00-0.031); Immature Granulocyte Percent A 0.3 % (0-0.5); Lymphocytes Absolute Auto 1.43 K/mm3 (0.9-3.2); Lymphocytes Percent Auto 12.2 % (18.3-44.2); Mean Corpuscular HGB Conc 33.4 g/dl (32-36); Mean Corpuscular Hemoglobin 31.3 pg (26-34); Mean Corpuscular Volume 93.7 fl (80-100); Mean Platelet Volume 10.1 fl (7.4-10.4); Monocytes Absolute Auto 1.1 K/mm3 (0.1-0.6); Monocytes Percent Auto 9.3 % (2.6-8.5); Neutrophils Absolute Auto 8.8 K/mm3 (1.3-6.7); Neutrophils Percent Auto 75.6 % (45.5-73.1); Platelet Count Result 208 k/mm3 (150-375); Red Cell Distribution Width 12.4 % (11.5-14.5); White Blood Count 11.7 K/mm3 (4.5-10.0)
[2024-05-23 06:37] LABS: Alanine Aminotransferase 13 U/L (6-35); Albumin Level 3.1 g/dL (3.5-5.1); Alkaline Phosphatase 46 U/L (38-126); Anion Gap 1 mmol/L (4-12); Aspartate Amino Transferase 17 U/L (14-36); Bilirubin,Total 0.4 mg/dL (0.2-1.3); Blood Urea Nitrogen 2 mg/dL (7-17); Calcium 8.2 mg/dL (8.4-10.2); Carbon Dioxide 27 mmol/L (22-30); Chloride 105 mmol/L (98-107); Estimated CRCL calculation 131 ml/min; Estimated Glomerular Filt Rate > 60; Glucose 97 mg/dL (65-110); Magnesium 2.1 mg/dL (1.6-2.3); Potassium 3.4 mmol/L (3.4-5.0); Sodium 133 mmol/L (137-145)
[2024-05-23] MEDS: ACETAMINOPHEN 325 MG TABLET 650 MG PO ×2 (06:44→20:16)
--- NOTE | 2024-05-23 07:12 | P.PNIM_ITS ---
Progress Note: A&P Assessment and Plan (1) Pneumonia: Code(s): J18.9 - Pneumonia, unspecified organism Status: Acute Assessment and Plan: Chest x-ray showed subtle opacity right lower lung zone representing pneumonia. Abdomen/pelvis CT showing ground-glass opacities in the right middle and lower lung zones consistent with pneumonia, fluid in the proximal colon consistent with nonspecific diarrhea possible gastroenteritis. White blood cell count initially 26.8, band neutrophils 15, lactic acid 2.5 which corrected after 3 L of fluid in the ED to 1.5. MRSA negative, discontinued vancomycin. Patient's also had a fever yesterday and was negative for covid/flu at a local urgent care. * Stop cefepime. Start Unasyn. Remote hx questionable PCN allergy, mild rash. If no allergy to unasyn, can discharge with Augmentin. Benadryl prn for rash * Continue azithromycin * Urine strep negative. * respiratory panel was obtained and was negative for influenza a and B, RSV, COVID. Check Full Respiratory panel, also screens for mycoplasma. * continue reverse isolation * white blood count almost normalized, 11 * blood cultures showing no growth on preliminary read (2) Bandemia: Code(s): D72.825 - Bandemia Status: Acute Assessment and Plan: * band neutrophils initially 15 * pneumonia with bandemia complicated by a immunosuppression due to use of rituximab * continue broad-spectrum antibiotics for now (3) Acute UTI: Code(s): N39.0 - Urinary tract infection, site not specified Status: Acute Assessment and Plan: recently diagnosed with a UTI and started on cefdinir. UA 05/21 no WBC's. Did not reflex to culture * Stopped Cefdinir, on cefepime and azithromycin * Change Pyridium to PRN (4) Immunocompromised: Code(s): D84.9 - Immunodeficiency, unspecified Status: Acute Assessment and Plan: * patient currently on rituximab for her MS which can decrease her immune response * continue antibiotics as noted (5) Multiple sclerosis: Code(s): G35 - Multiple sclerosis Status: Acute Assessment and Plan: * continue meds for muscle spasticity as noted * Holding rituximab while treating infection (6) Muscle spasticity: Code(s): M62.838 - Other muscle spasm Status: Acute Assessment and Plan: Muscle spasticity related to MS * Home meds: on high doses of baclofen 40mg BID, 80mg hs, as well as tizanidine 4mg hs and lorazepam 2mg hs * Would likely need to taper meds if dose reduction needed (7) Irritable bowel syndrome: Code(s): K58.9 - Irritable bowel syndrome, unspecified Status: Acute Assessment and Plan: Home med: Linzess --Continue (8) Diabetes: Code(s): E11.9 - Type 2 diabetes mellitus without complications Status: Acute Assessment and Plan: Home med: Mounjaro 12.5mg/0.5ml HgbA1c 5.5 Blood sugars ranging 69-124 --Accuchecks AC & HS, moderate SSI, --diabetic diet -- hold Mounjaro (9) Hypertension: Code(s): I10 - Essential (primary) hypertension Status: Acute Assessment and Plan: No home meds blood pressure ranging 121/70 to 130/76 * patient is not on any home medications for blood pressure * continue to monitor (10) Anxiety: Code(s): F41.9 - Anxiety disorder, unspecified Status: Acute Assessment and Plan: * continue lorazepam (11) Hyperlipidemia: Code(s): E78.5 - Hyperlipidemia, unspecified Status: Acute Assessment and Plan: * continue simvastatin Time Spent With Patient Time: 59 minutes Subjective Date/time seen: 05/23/24 07:12 Interval history: Still has a cough but improving. Afebrile, VSS on Cefepime 2G q12 and Azithro 500mg Has a remote possible allergy to PCN, rash, but patient said it could also have been another medication possibly Hospital course: 49 y/o female hx MS, asthma, DMII, heart disease, presented to the ED for evaluation of multiple symptoms and admitted 05/21 for treatment of pneumonia. She reported nausea/vomiting, diarrhea, dry heaves, dizziness, palpitations, and a dry cough. since 05/13. No fevers/chills or shortness of breath. Recently started on Cefdinir for a UTI. 05/21 Chest x-ray also likely pneumonia. CT Abdomen/ pelvis CT shown ground-glass opacities in the right middle and lower lobe consistent with pneumonia, fluid in the proximal colon consistent with nonspecific diarrhea. Initial labs showed a white blood cell count of 26.8, band neutrophils 15, sodium 135, creatinine 0.50, .lactic acid 2.5 1.5. UA was obtained which showed cloudy urine appearance, trace urine ketone, otherwise unremarkable. Respiratory panel was negative for influenza a and B, RSV, COVID. Blood cultures 05/21 prelim no growth. EKG showed sinus tachycardia with incomplete right bundle branch block rate of 109, QTC 436. Patient was given 3 L of normal saline, Tylenol, azithromycin cefepime and vancomycin while in the ED. VSS, HR normalized. WBC improving Exam Narrative: General - Awake and alert. No acute distress Eyes - PERRLA, EOM intact ENT - No thrush, No erythema Neck - No noticeable or palpable swelling Lymph Nodes - No lymphadenopathy Cardiovascular - RRR no m/r/g, no JVD Lungs: Decreased bases, No wheezing, use of accessory muscles, no crackles Skin - Skin warm and dry, no wounds or rashes Abdomen - Normal bowel sounds, abdomen soft and nontender Extremities - No edema, cyanosis or clubbing Musculoskeletal - 5/5 strength, normal range of motion, no swollen or erythematous joints. Neurological ? Alert and oriented x 3, CN 2-12 grossly intact. Psych: Normal mood and affect Objective Data Vital Signs Vital Signs: Vital Signs - 24 hr 05/22/24 07:50 05/22/24 07:50 05/22/24 08:03 Temperature Pulse Rate 76 84 Respiratory Rate 18 18 Blood Pressure Pulse Oximetry 97 Oxygen Delivery Room Air 05/22/24 08:00 05/22/24 14:00 05/22/24 20:12 Temperature 96.9 F L Pulse Rate 62 88 Respiratory Rate 18 18 Blood Pressure 110/48 L Pulse Oximetry 100 Oxygen Delivery Room Air 05/22/24 20:25 05/22/24 20:00 05/22/24 22:00 Temperature 98.8 F Pulse Rate 84 88 Respiratory Rate 18 18 Blood Pressure 112/65 Pulse Oximetry 100 Oxygen Delivery Room Air 05/23/24 06:00 Temperature 98.0 F Pulse Rate 78 Respiratory Rate 16 Blood Pressure 107/67 Pulse Oximetry 97 Oxygen Delivery Intake/Output Intake/Output: Intake & Output 05/20/24 05/21/24 05/22/24 05/23/24 23:59 23:59 23:59 23:59 Intake Total 5090 3240 1196 Balance 5090 3247 1196 Meds/Results Medications: Active Medications Generic Name Dose Route Start Last Admin Trade Name Freq PRN Reason Stop Dose Admin Acetaminophen 650 mg 05/21/24 13:55 05/23/24 06:44 Acetaminophen 325 Mg Tablet PO 650 mg Q4H PRN Administration Mild Pain (1-3) or Fever Hydrocodone Bitart/Acetaminophen 1 tab 05/21/24 13:55 Hydrocodone/Acetaminophen (*Crx) 5-325 Mg Tablet PO Q4H PRN Moderate Pain (4-6) Hydrocodone Bitart/Acetaminophen 1 tab 05/21/24 20:51 Hydrocodone/Acetaminophen (*Crx) 10-325 Mg Tablet PO Q4H PRN pain (scale score 7-10) Albuterol/Ipratropium 3 ml 05/21/24 23:46 05/22/24 20:12 Ipratropium 0.5 Mg/Albuterol Sulfate 2.5 Mg Ampul.Neb 3 Ml INHALATION 3 ml Q6HRT PRN Administration shortness of breath Amitriptyline HCl 10 mg 05/21/24 21:00 05/22/24 22:04 Amitriptyline Hcl 10 Mg Tablet PO 10 mg QHS LUIS MANUEL Administration Azithromycin 500 mg 05/23/24 09:00 Azithromycin 250 Mg Tablet PO 05/25/24 09:01 DAILY LUIS MANUEL Baclofen 80 mg 05/22/24 21:00 05/22/24 20:33 Baclofen 10 Mg Tablet PO 80 mg QHS LUIS MANUEL Administration Baclofen 40 mg 05/22/24 09:00 05/22/24 14:42 Baclofen 10 Mg Tablet PO 40 mg BID@0900,1300 LUIS MANUEL Administration Dextrose 12.5 gm 05/21/24 13:55 Dextrose 50% 25 Gm/50 Ml Syringe IV PUSH PRN PRN Hypoglycemia Protocol Enoxaparin Sodium 40 mg 05/21/24 14:05 05/22/24 08:33 Enoxaparin 40 Mg/0.4 Ml Syringe SUB-Q 40 mg DAILY LUIS MANUEL Administration Gabapentin 600 mg 05/23/24 09:00 Gabapentin 300 Mg Capsule PO 0900,1200,2100 LUIS MANUEL Glucagon 1 mg 05/21/24 13:55 Glucagon For Inj 1 Mg Vial IM PRN PRN Hypoglycemia Protocol Glucose 15 gm 05/21/24 13:55 Glucose Oral Gel 15 Gm Of Glucse In 37.5 Gm Tube PO PRN PRN Hypoglycemia Protocol Guaifenesin/Dextromethorphan 1 tab 05/22/24 09:00 05/22/24 22:04 Guaifenesin 600 Mg/Dextromethorphan 30 Mg Sr Tab 12 Hr PO 1 tab Q12HR LUIS MANUEL Administration Lactated Ringer's 1,000 mls @ 125 mls/hr 05/21/24 13:45 05/23/24 00:24 Lr - Lactated Ringers Iv IV CONT 125 mls/hr .Q8H LUIS MANUEL Administration Dextrose 1,000 mls @ 100 mls/hr 05/21/24 13:55 Dextrose 5% 1,000 Ml IVPB PRN PRN Hypoglycemia Protocol Cefepime HCl 2 gm in 50 mls @ 100 mls/hr 05/21/24 21:00 05/22/24 22:05 Maxipime 2 Gm/Ns 50 Ml IVPB 100 mls/hr Q12H LUIS MANUEL Administration Insulin Aspart 1 - 3 units 05/21/24 21:00 05/22/24 20:33 Insulin Aspart (*Bkc) 100 Units/Ml SUB-Q Not Given HS LUIS MANUEL Protocol Insulin Aspart 3 - 6 units 05/21/24 17:00 05/22/24 18:05 Insulin Aspart (*Bkc) 100 Units/Ml SUB-Q Not Given TIDWM LUIS MANUEL Protocol Lorazepam 2 mg 05/21/24 21:00 05/22/24 22:04 Lorazepam (*Crx) 1 Mg Tablet PO 2 mg HS LUIS MANUEL Administration Ondansetron HCl 4 mg 05/21/24 13:55 Ondansetron Inj 4 Mg/2 Ml Vial IV PUSH Q6H PRN Nausea And Vomiting Phenazopyridine HCl 200 mg 05/22/24 17:00 05/22/24 16:06 Phenazopyridine Hcl 100 Mg Tablet PO 200 mg TIDWM LUIS MANUEL Administration Tizanidine HCl 6 mg 05/21/24 21:00 05/22/24 22:04 Tizanidine Hcl 2 Mg Tablet PO 6 mg HS LUIS MANUEL Administration Radiology Results: ITS Impressions Chest X-Ray 05/21/24 10:49 IMPRESSION: 1. Subtle opacity right lower lung zone which could represent pneumonia, atelectasis or asymmetric mild pulmonary edema. Abdomen/Pelvis CT 05/21/24 11:21 IMPRESSION: 1. Centrilobular groundglass opacities in the right middle and lower lobes consistent with pneumonia with differential including aspiration, pulmonary hemorrhage or less likely mild pulmonary edema. 2. Fluid in the proximal colon consistent with nonspecific diarrhea. Correlate clinically for possible gastroenteritis. Labs Labs: Laboratory Results - last 24 hr 05/22/24 05/22/24 05/22/24 07:32 11:30 19:33 WBC RBC Hgb Hct MCV MCH MCHC RDW Plt Count MPV Immature Gran % (Auto) Neut % (Auto) Lymph % (Auto) [place] % (Auto) Eos % (Auto) Baso % (Auto) Lymph # (Auto) [place] # (Auto) Eos # (Auto) Baso # (Auto) Abs Immat Gran (auto) Absolute Neuts (auto) Absolute Nucleated RBC Nucleated RBC % Sodium Potassium Chloride Carbon Dioxide Anion Gap BUN Creatinine Estim Creat Clear Calc Estimated GFR Glucose POC Capillary Glucose 85 78 69 Calcium Magnesium Total Bilirubin AST ALT Alkaline Phosphatase Total Protein Albumin 05/22/24 05/22/24 05/23/24 20:03 21:24 00:09 WBC RBC Hgb Hct MCV MCH MCHC RDW Plt Count MPV Immature Gran % (Auto) Neut % (Auto) Lymph % (Auto) [place] % (Auto) Eos % (Auto) Baso % (Auto) Lymph # (Auto) [place] # (Auto) Eos # (Auto) Baso # (Auto) Abs Immat Gran (auto) Absolute Neuts (auto) Absolute Nucleated RBC Nucleated RBC % Sodium Potassium Chloride Carbon Dioxide Anion Gap BUN Creatinine Estim Creat Clear Calc Estimated GFR Glucose POC Capillary Glucose 124 H 104 118 H Calcium Magnesium Total Bilirubin AST ALT Alkaline Phosphatase Total Protein Albumin 05/23/24 05/23/24 03:48 06:12 WBC 11.7 H RBC 3.80 L Hgb 11.9 L Hct 35.6 L MCV 93.7 MCH 31.3 MCHC 33.4 RDW 12.4 Plt Count 208 MPV 10.1 Immature Gran % (Auto) 0.3 Neut % (Auto) 75.6 H Lymph % (Auto) 12.2 L [place] % (Auto) 9.3 H Eos % (Auto) 2.3 Baso % (Auto) 0.3 Lymph # (Auto) 1.43 [place] # (Auto) 1.1 H Eos # (Auto) 0.3 Baso # (Auto) 0.0 Abs Immat Gran (auto) 0.04 H Absolute Neuts (auto) 8.8 H Absolute Nucleated RBC 0.000 Nucleated RBC % 0.0 Sodium 133 L Potassium 3.4 Chloride 105 Carbon Dioxide 27 Anion Gap 1 L BUN 2 L Creatinine 0.50 L Estim Creat Clear Calc 131 Estimated GFR > 60 Glucose 97 POC Capillary Glucose 97 Calcium 8.2 L Magnesium 2.1 Total Bilirubin 0.4 AST 17 ALT 13 Alkaline Phosphatase 46 Total Protein 6.0 L Albumin 3.1 L Quality VTE Prophylaxis VTE prophylaxis: pharmacologic ordered Hospitalist MIPS Advance Care Plan I have confirmed that the patient's Advanced Care Plan is present, code status is documented, or surrogate decision maker is listed in patient medical record.: Yes Medication Reconciliation I have utilized all available resources to obtain, update and review the patients current medications (includes all prescriptions, OTC, herbals, cannabis, and nutritional supplements).: Yes
[2024-05-23 07:59] LABS: Glucose Point of Care 89 mg/dl (65-105)
[2024-05-23] MEDS: AZITHROMYCIN 250 MG TABLET 500 MG PO (08:20)
[2024-05-23] MEDS: BACLOFEN 10 MG TABLET 40 MG PO ×2 (08:20→15:31)
[2024-05-23] MEDS: CEFEPIME 2 GM/NS 50 ML 2 GM/50 ML BAG IVPB (08:21)
[2024-05-23] MEDS: ENOXAPARIN 40 MG/0.4 ML SYRINGE SUB-Q (08:21)
[2024-05-23] MEDS: guaiFENesin 600 MG/DEXTROMETHORPHAN 30 MG SR TAB 12 HR 1 TAB PO ×2 (08:21→20:16)
[2024-05-23] MEDS: GABAPENTIN 300 MG CAPSULE 600 MG PO ×3 (08:25→20:16)
[2024-05-23 11:44] LABS: Glucose Point of Care 84 mg/dl (65-105)
[2024-05-23 14:00] VITALS: BP 123/86; PULSE 73; RESP 16; TEMP 36.6; O2SAT 96
[2024-05-23] MEDS: AMPICILLIN SULB 3 GM/NS 100 ML 3 GM/100 ML VIAL IVPB ×2 (15:31→20:17)
[2024-05-23 15:58] LABS: Glucose Point of Care 90 mg/dl (65-105)
[2024-05-23] MEDS: BACLOFEN 10 MG TABLET 80 MG PO (20:16)
[2024-05-23 21:08] LABS: Glucose Point of Care 101 mg/dl (65-105)
[2024-05-23 21:48] VITALS: BP 131/90; PULSE 71; RESP 18; TEMP 36.9; O2SAT 97
[2024-05-23] MEDS: AMITRIPTYLINE HCL 10 MG TABLET PO (22:02)
[2024-05-23] MEDS: LORazepam (*CRX) 1 MG TABLET 2 MG PO (22:02)
[2024-05-23] MEDS: TIZANIDINE HCL 2 MG TABLET 6 MG PO (22:02)
[2024-05-24] MEDS: AMPICILLIN SULB 3 GM/NS 100 ML 3 GM/100 ML VIAL IVPB ×3 (01:02→12:02)
[2024-05-24 02:03] LABS: Glucose Point of Care 104 mg/dl (65-105)
[2024-05-24] MEDS: LACTATED RINGERS 1,000 ML 125 ML IV CONT (03:30)
[2024-05-24 05:42] VITALS: BP 114/86; PULSE 68; RESP 12; TEMP 36.6; O2SAT 99
[2024-05-24 06:41] LABS: Basophils Percent Auto 0.3 % (0.2-1.2); Eosinophils Absolute Auto 0.3 K/mm3 (0-0.3); Eosinophils Percent Auto 3.4 % (0-4.4); Hematocrit 36.2 % (37.0-47.0); Hemoglobin 12.2 g/dL (12.0-15.0); Immature Granulocyte Absolute 0.04 K/mm3 (0.00-0.031); Immature Granulocyte Percent A 0.4 % (0-0.5); Lymphocytes Percent Auto 18.8 % (18.3-44.2); Mean Corpuscular HGB Conc 33.7 g/dl (32-36); Mean Corpuscular Hemoglobin 31.3 pg (26-34); Mean Corpuscular Volume 92.8 fl (80-100); Mean Platelet Volume 10.1 fl (7.4-10.4); Monocytes Absolute Auto 0.7 K/mm3 (0.1-0.6); Monocytes Percent Auto 7.5 % (2.6-8.5); Neutrophils Absolute Auto 6.3 K/mm3 (1.3-6.7); Neutrophils Percent Auto 69.6 % (45.5-73.1); Platelet Count Result 211 k/mm3 (150-375); Red Cell Distribution Width 12.4 % (11.5-14.5); White Blood Count 9.1 K/mm3 (4.5-10.0)
[2024-05-24 06:55] LABS: Alanine Aminotransferase 12 U/L (6-35); Albumin Level 3.2 g/dL (3.5-5.1); Alkaline Phosphatase 48 U/L (38-126); Anion Gap 5 mmol/L (4-12); Aspartate Amino Transferase 17 U/L (14-36); Bilirubin,Total 0.4 mg/dL (0.2-1.3); Blood Urea Nitrogen 3 mg/dL (7-17); Calcium 8.4 mg/dL (8.4-10.2); Carbon Dioxide 27 mmol/L (22-30); Chloride 104 mmol/L (98-107); Estimated CRCL calculation 131 ml/min; Estimated Glomerular Filt Rate > 60; Glucose 85 mg/dL (65-110); Magnesium 2.2 mg/dL (1.6-2.3); Potassium 3.6 mmol/L (3.4-5.0); Sodium 136 mmol/L (137-145)
[2024-05-24 07:38] LABS: Glucose Point of Care 96 mg/dl (65-105)
[2024-05-24] MEDS: guaiFENesin 600 MG/DEXTROMETHORPHAN 30 MG SR TAB 12 HR 1 TAB PO (08:03)
[2024-05-24] MEDS: GABAPENTIN 300 MG CAPSULE 600 MG PO ×2 (08:03→12:01)
[2024-05-24] MEDS: BACLOFEN 10 MG TABLET 40 MG PO ×2 (08:03→12:02)
[2024-05-24] MEDS: AZITHROMYCIN 250 MG TABLET 500 MG PO (08:03)
[2024-05-24 11:32] LABS: Glucose Point of Care 87 mg/dl (65-105)
--- NOTE | 2024-05-24 13:24 | P.DS_ITS ---
DS: Admitting Diagnosis Discharge Date 05/24/2024 Admitting Diagnosis Pneumonia DS: Discharge Diagnosis Discharge Diagnosis (1) Pneumonia: Code(s): J18.9 - Pneumonia, unspecified organism Status: Acute (2) Bandemia: Code(s): D72.825 - Bandemia Status: Acute (3) Immunocompromised: Code(s): D84.9 - Immunodeficiency, unspecified Status: Acute (4) Multiple sclerosis: Code(s): G35 - Multiple sclerosis Status: Acute (5) Muscle spasticity: Code(s): M62.838 - Other muscle spasm Status: Acute (6) Irritable bowel syndrome: Code(s): K58.9 - Irritable bowel syndrome, unspecified Status: Acute (7) Diabetes: Code(s): E11.9 - Type 2 diabetes mellitus without complications Status: Acute (8) Hypertension: Code(s): I10 - Essential (primary) hypertension Status: Acute (9) Anxiety: Code(s): F41.9 - Anxiety disorder, unspecified Status: Acute (10) Hyperlipidemia: Code(s): E78.5 - Hyperlipidemia, unspecified Status: Acute Plan Disposition: Discharged to home DS: Summary Hospital Course Reason for hospitalization: Pneumonia Hospital Course: Patient was a 49-year-old female with a significant past medical history of anxiety, asthma, diabetes, GERD, heart disease, hypertension, multiple sclerosis who presented to the hospital with complaints of upper respiratory symptoms. she states that she has not felt well since last Saturday when she got a UTI and was placed on cefdinir on Saturday whenever she went to the urgent care for her urinary tract infection. .Workup in the hospital included chest x-ray which showed subtle opacities in the right lower lung zone representing pneumonia. Abdomen/ pelvis CT shown ground-glass opacities in the right middle and lower lobe consistent with pneumonia, fluid in the proximal colon consistent with nonspecific diarrhea. Initial labs showed a white blood cell count of 26.8, band neutrophils 15, sodium 135, creatinine 0.50, .lactic acid 2.5 1.5. UA was obtained which showed cloudy urine appearance, trace urine ketone, otherwise unremarkable. Respiratory panel was negative for influenza a and B, RSV, COVID. Blood cultures were obtained and are pending. EKG showed sinus tachycardia with incomplete right bundle branch block rate of 109, QTC 436. Patient was given 3 L of normal saline, Tylenol, azithromycin cefepime and vancomycin while in the ED. Patient was admitted for further treatment of Pneumonia. Patient was transition to unysn IV for coverage and discontinued cefepime and vanc. UA came back with no growth and UTI was ruled out. She was started Duonebs and Guaifenesin remained on room air during her hospitalization and had overall improvement after a few days of treatment. patient still with mild productive cough at time of discharge but reporting feeling better and wanting to go home to was transition to oral antibiotic and discharged home on Augmentin however was encouraged if symptoms got worse or severe shortness of breath to return for medical attention. Status at Discharge Functional status at discharge: independent ambulation Overall status at discharge: patient is progressing back to baseline Time Spent with Patient Time attestation: Total time spent providing and/or coordinating discharge services: Time spent: Greater than 30 minutes Exam Narrative: General - Awake and alert. No acute distress Eyes - PERRLA, EOM intact ENT - No thrush, No erythema Neck - No noticeable or palpable swelling Lymph Nodes - No lymphadenopathy Cardiovascular - RRR no m/r/g, no JVD Lungs: Decreased bases, No wheezing, use of accessory muscles, no crackles Skin - Skin warm and dry, no wounds or rashes Abdomen - Normal bowel sounds, abdomen soft and nontender Extremities - No edema, cyanosis or clubbing Musculoskeletal - 5/5 strength, normal range of motion, no swollen or erythematous joints. Neurological ? Alert and oriented x 3, CN 2-12 grossly intact. Psych: Normal mood and affect DS: Data Data Completed and Pending Labs on day of discharge: Labs from last 24 hours 05/24/24 05/24/24 05/24/24 11:19 07:26 06:20 WBC 9.1 RBC 3.90 L Hgb 12.2 Hct 36.2 L MCV 92.8 MCH 31.3 MCHC 33.7 RDW 12.4 Plt Count 211 MPV 10.1 Immature Gran % (Auto) 0.4 Neut % (Auto) 69.6 Lymph % (Auto) 18.8 [place] % (Auto) 7.5 Eos % (Auto) 3.4 Baso % (Auto) 0.3 Lymph # (Auto) 1.70 [place] # (Auto) 0.7 H Eos # (Auto) 0.3 Baso # (Auto) 0.0 Abs Immat Gran (auto) 0.04 H Absolute Neuts (auto) 6.3 Absolute Nucleated RBC 0.000 Nucleated RBC % 0.0 Sodium 136 L Potassium 3.6 Chloride 104 Carbon Dioxide 27 Anion Gap 5 BUN 3 L Creatinine 0.50 L Estim Creat Clear Calc 131 Estimated GFR > 60 Glucose 85 POC Capillary Glucose 87 96 Calcium 8.4 Magnesium 2.2 Total Bilirubin 0.4 AST 17 ALT 12 Alkaline Phosphatase 48 Total Protein 6.0 L Albumin 3.2 L 05/24/24 05/23/24 05/23/24 02:00 21:02 15:53 WBC RBC Hgb Hct MCV MCH MCHC RDW Plt Count MPV Immature Gran % (Auto) Neut % (Auto) Lymph % (Auto) [place] % (Auto) Eos % (Auto) Baso % (Auto) Lymph # (Auto) [place] # (Auto) Eos # (Auto) Baso # (Auto) Abs Immat Gran (auto) Absolute Neuts (auto) Absolute Nucleated RBC Nucleated RBC % Sodium Potassium Chloride Carbon Dioxide Anion Gap BUN Creatinine Estim Creat Clear Calc Estimated GFR Glucose POC Capillary Glucose 104 101 90 Calcium Magnesium Total Bilirubin AST ALT Alkaline Phosphatase Total Protein Albumin Preliminary micro results at discharge 05/21/24 10:16 Blood Culture - Preliminary Blood 05/21/24 10:24 Blood Culture - Preliminary Blood Imaging Radiologist's impression: Radiology Results: ITS Impressions Chest X-Ray 05/21/24 10:49 IMPRESSION: 1. Subtle opacity right lower lung zone which could represent pneumonia, atelectasis or asymmetric mild pulmonary edema. Abdomen/Pelvis CT 05/21/24 11:21 IMPRESSION: 1. Centrilobular groundglass opacities in the right middle and lower lobes consistent with pneumonia with differential including aspiration, pulmonary hemorrhage or less likely mild pulmonary edema. 2. Fluid in the proximal colon consistent with nonspecific diarrhea. Correlate clinically for possible gastroenteritis. Discharge Plan Discharge Attending physician on discharge: Tc Thompson Discharging Clinician: Augusta Stoll Anticipated Discharge Date/Time: 05/24/24 13:03 Patient Disposition: Home, Self-Care Activity: unlimited and as tolerated Diet: heart healthy Discharge Instructions: You are being discharged to home after treatment for Pneumonia. I have prescribed oral antibiotics please complete as prescribed. I encourage activity and hydration, continue to use Incentive spirometer. continue with supportive care at home will may use acetaminophen for mild aches and pains or fever however if you experience any chest pain, worsening shortness of breath or worsening of overall symptoms please seek medical attention. I have also attached education and information regarding your diagnosis for your review How can you care for yourself at home? ? Keep track of any new symptoms or changes in your symptoms. ? Rest until you feel better. ? Be safe with medicines. Take your medicines exactly as prescribed. Call your doctor if you think you are having a problem with your medicine. ? Do not drive after taking a prescription pain medicine. ? Ensure to follow-up with primary care physician as indicated and provide updated medication list provided to you at discharge. When should you call for help? Call 911 anytime you think you may need emergency care. For example, call if: ? You passed out (lost consciousness). Call your doctor now or seek immediate medical care if: ? You have new symptoms like fever, difficulty breathing, Chest pain, vomiting, or rash. ? You have new or different pain. ? You are confused and are having trouble thinking clearly. ? Your symptoms are getting worse. Watch closely for changes in your health, and be sure to contact your doctor if: ? You do not get better as expected. Patient Instructions: Antibiotic Form, Pain Management (DC), Community Acquired Pneumonia (DC), Bacterial Pneumonia (DC) Patient Language: [place] Stand Alone Forms: General Discharge Information Follow-up/Referrals: Reginald Lock MD [Primary Care Provider] - 2 Weeks Discharge Medications: New Mucinex DM 30-600 mg Tablet Extended Release 12 Hr 1 tablet PO Q12HR Qty: 14 0RF azithromycin 500 mg tablet 500 mg PO ONCE Qty: 1 0RF amoxicillin-pot clavulanate 875-125 mg tablet 1 tablet PO Q12H Qty: 14 0RF fluconazole [Diflucan] 100 mg tablet 150 mg PO DAILY Qty: 4 0RF Rx Instructions: Take 1 and half tabs orally x1 if symptoms still present after 72 hours may take the other 1 and half tablets Continued baclofen 20 mg tablet 40 mg PO BID Rx Instructions: 0900 &1300 gabapentin 600 mg tablet 600 mg PO TID omeprazole 40 mg capsule,delayed release(DR/EC) 40 mg PO DAILY Mounjaro 12.5 mg/0.5 mL pen injector 12.5 mg subcut WEEKLY Qty: 2 0RF Rx Instructions: takes weekly on mondays baclofen 20 mg tablet 80 mg PO QHS amitriptyline 10 mg tablet 10 mg PO QHS lorazepam 2 mg tablet 2 mg PO HS nystatin 100,000 unit/gram powder 1 applic topical TID PRN (Reason: rash on stomach) tizanidine 4 mg Tablet 6 mg PO HS hydrocodone-acetaminophen 10-325 mg tablet 1 tablet PO Q4H PRN (Reason: pain (scale score 7-10)) Qty: 150 0RF Date of admission: 05/23/24 15:28 Primary Care Provider: Reginald Lock Admitting Provider: Michelle Plunkett Attending physician on admission: Augusta Stoll Condition: Stable Quality VTE Prophylaxis VTE prophylaxis: pharmacologic ordered -Patient's previous records reviewed on admission -ER notes reviewed in detail on admission -discussed all findings and current treatment plan with patient/Family/POA -Consultations reviewed for recommendations -Patient's disposition for safe discharge discussed with assistant case manager Dictation performed by [employer] direct speech recognition software, therefore installation technician variants and typographical errors may occur. Hospitalist MIPS Heart Failure (Exclusion) Patient has history of Heart Transplant or Left Ventricular Assistive Device?: No IF YES, STOP HERE Heart Failure (Qualifier) Patient has current or prior documentation of LVEF less than or equal to 40%, or mod/servere depressed LVSF?: No IF NO, STOP HERE
[2024-05-25 19:38] LABS: Pneumococcal Antigen Urine NOT DETECTED
[2024-05-27 18:09] LABS: Source FLEX SWAB
== END 2024-05-24 14:27 | disposition home or self-care (01) | DRG 194 ==
LOC: ANHED 13:41 → ANH3MEDSUR 14:45
PROVIDERS: Nurse Practitioner Acute Care; Admitting Provider Family Medicine; Emergency Provider Emergency Medicine; PCP Family Medicine; Visit Provider Nurse Practitioner Family
DX: J18.9 Pneumonia, unspecified organism (principal); D84.81 Immunodeficiency due to conditions classified elsewhere; G35 Multiple sclerosis; Z20.822 Contact with and (suspected) exposure to COVID-19; K58.0 Irritable bowel syndrome with diarrhea; E11.9 Type 2 diabetes mellitus without complications; F41.9 Anxiety disorder, unspecified; I10 Essential (primary) hypertension; E78.5 Hyperlipidemia, unspecified; J45.909 Unspecified asthma, uncomplicated; K21.9 Gastro-esophageal reflux disease without esophagitis; I45.10 Unspecified right bundle-branch block; Z90.49 Acquired absence of other specified parts of digestive tract; Z90.711 Acquired absence of uterus with remaining cervical stump
CPT/HCPCS: 36415; 71045; 74177; 80053; 81001; 82803; 82948; 83605; 83735; 85025; 87040; 87254; 87637; 87641; 87899; 93005; 94640; 96365; 96367; 96375; 96376; 99285; A9270; G0378; J0295; J0456; J0692; J1650; J3370; J7030; J7120; Q9967

== ENCOUNTER 2024-06-11 12:30 | Outpatient (RCR) | payer MEDICARE, MEDICAID, SELFPAY ==
--- NOTE | 2024-05-19 13:37 | OPREHPOC ---
Outpatient Therapy Plan of Care This is a Multidisciplinary Plan of Care that may contain components documented by all disciplines (PT, OT, and ST.) PT Problem 1 PT Problem #1 Knowledge Deficit PT Goal 1 Goal / Goal Update 1* indep with HEP Target Visit 10 PT Problem 2 PT Problem #2 Pain PT Goal 1 Goal / Goal Update 1* pain rating at worst of 2/10 2* self assessment LE functional scale rating of 70% limitation in activity level 3* pt report sleeping 2 hours at time Target Visit 10 PT Problem 3 PT Problem #3 Impaired Strength PT Goal 1 Goal / Goal Update increase strength of trunk and LE's to improve stability to spine and posture: 1* pt perform 20 reps of mat strengthening exercises 2* pt ambulate in a straight path for 2 minute walking test 3* 2 minute walking test distance of 450' 4* pt stand without forward rotation of R trunk and hip/neutral position Target Visit 10
--- NOTE | 2024-05-19 13:37 | PTOPEVAL1 ---
Assessment and note entered by Sierra Montoya, PT Evaluation Information Assessment Status Evaluation ICD-10 Condition Codes (PT) Pain in low back M54.50,Pain in right hip M25.551, Pain in left hip M25.552 Other ICD-10 Condition Codes ( M62.838 other muscle spasm;G35 multiple PT) [id number] pain Onset over 1 year Subjective Information pain has increased in both hips over the past year history: back pain, multiple sclerosis, diabetes, muscle spasms MS affects her L leg with more weakness than her R LE have had PT in past for her hips--stretches, manual roller, stim and heat helped; has not had PT for her back had R hip injection on 05-07-24, it helped ease the pain; 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; have family to assist with heavy tasks, laundry in basement problems on stairs; Reported Pain Level Pain Score Self Report Additional Pain Score Comments pain range in the past week 2-3/10 since injection prior to injection hip up to 6/10; lateral hip tolerances reported with sittin-30 minutes; home standing/walking activity for 2 hours; awaken every hour due to hip pain on R and L sides increase pain: lie on sides R/L; lie on back and leg rolls out decrease pain: change positions, stretch hip-- piriformis, hip ER- figure 4 , take muscle relaxer for spasms and pain meds for neck and back pain Assessment PT Clinical Summary Verónica has the diagnosis of MS, hip pain, muscle spasms, chronic pain. LE functional scale rating of 83% limitation in activity level. She reports decreased sitting, walking, standing, sleeping tolerances due to pain. With the evaluation: she has decreased strength and motor control of both legs due to MS, L > R; poor standing position of her spine with R forward rotation and increase weight bearing on R LE; poor walking pattern with decreased motor control of LE's and lateral motion of trunk; standing trunk flexion and extension increase pain in her back; supine R hip flexion and IR motions increase back and R hip pain; Skilled PT services are indicated for modalities to decrease back and hip pain, therapeutic exercises to increase LE strength and trunk control, to improve position of her spine and control of motions and education for HEP, posture and pain control. Plan of Care Interventions Electrical Stimulation,Hot Pack/Cold Pack,Manual Therapy,Mechanical Traction,Neuro Re-education, Patient/Caregiver Education,Therapeutic Activities, Therapeutic Exercise,Ultrasound,Other Other Interventions taping PT Services Indicated Yes Treatment Frequency and 2x/wk for 10 visits Duration These treatments will address the objective and functional deficits as defined above. The patient will be advanced safely and appropriately in order for the patient to progress towards his/her prior level of function. Additional exercises will be introduced and as well as a comprehensive home exercise program upon discharge, if needed, ?to ensure carryover of functional gains achieved in the clinic. This treatment plan has been reviewed and agreement upon by the patient.
--- NOTE | 2024-06-03 13:15 | PCPTNOTE ---
No call no show, reason unknown. AKHector
--- NOTE | 2024-06-05 13:39 | PCPTNOTE ---
No call no show. Called pt and she just got out of hospital today due to pneumonia. AKS
--- NOTE | 2024-06-18 13:26 | PCPTNOTE ---
No call No show, reason unknown however pt last visit stated that she was getting over pneumonia. AKS
--- NOTE | 2024-06-23 13:17 | PTOPDC ---
Assessment and note entered by Sierra Montoya, PT Assessment Status Discharge - Pt Not Present ICD-10 Condition Codes (PT) Pain in low back M54.50,Pain in right hip M25.551, Pain in left hip M25.552 Other ICD-10 Condition Codes ( M62.838 other muscle spasm;G35 multiple PT) [id number] pain Onset over 1 year Subjective Information pt did not show for today's reevaluation appt. Assessment PT Clinical Summary Verónica has received 2 PT sessions, from May 19 to June 11. She did not show for 3 treatment sessions and today's reevaluation appointment. Discharge PT due to not attending. The goals were not addressed. Plan of Care PT Services Indicated No
== END 2024-06-23 15:12 | disposition home or self-care (01) ==
LOC: ANHPT 12:30
PROVIDERS: PCP Family Medicine; Visit Provider Family Medicine
DX: M62.838 Other muscle spasm (principal); G35 Multiple sclerosis; G89.29 Other chronic pain; M25.551 Pain in right hip; M25.552 Pain in left hip; M54.50 Low back pain, unspecified
CPT/HCPCS: 97110; 97162; 97530

== ENCOUNTER 2024-06-11 13:31 | Outpatient (CLI) | payer MEDICARE, MEDICAID, SELFPAY ==
--- NOTE | ~2024-06-11 | XR_ITS ---
XR abdomen/kub 1V 06/11/2024 13:45 INDICATION: Constipation TECHNIQUE: KUB COMPARISON: None FINDINGS: Bowel gas pattern is normal. Moderate colonic fecal loading. There is no evidence of free a ir, mass, organomegaly, ascites or obstruction. No abnormal calculi are seen. The bones appear inta ct. There are pelvic phleboliths. IMPRESSION: 1: No acute abdominal abnormality identified. Reviewed, dictated and finalized at location B. O VISUAL COORDINATOR
--- NOTE | ~2024-06-11 | XR_ITS ---
EXAMINATION: XR chest 2V 06/11/2024 13:45 INDICATION: Cough PROCEDURE: 2 view chest COMPARISON: 05/21/2024 FINDINGS: The lungs are clear. The cardiomediastinal silhouette is within normal limits. There are no pleural effusions. There is no pneumothorax suspected. IMPRESSION: 1: NO ACUTE CARDIOPULMONARY DISEASE. Reviewed, dictated and finalized at location B. H MIXER
== END 2024-06-11 13:32 | disposition home or self-care (01) ==
LOC: MICIMG 13:32
PROVIDERS: PCP Nurse Practitioner Family; Visit Provider Nurse Practitioner Family
DX: R05.1 Acute cough (principal); K59.00 Constipation, unspecified; Z87.01 Personal history of pneumonia (recurrent)
CPT/HCPCS: 71046; 74018

== ENCOUNTER 2024-07-01 12:36 | Emergency (ER) | payer MEDICARE, MEDICAID, SELFPAY ==
--- NOTE | ~2024-07-01 | XR_ITS ---
EXAMINATION: XR chest 2V DATE: 07/01/2024 13:42 INDICATION: Cough. TECHNIQUE: PA and lateral views of the chest were obtained. COMPARISON: Chest radiograph dated 06/11/2024 FINDINGS: The lungs remain clear with no focal airspace opacities, pulmonary edema, pleural effusion or pneumot horax. The cardiomediastinal silhouette is normal. Moderate thoracic spondylosis. Cholecystectomy cli ps in right upper quadrant. IMPRESSION: 1. No acute cardiopulmonary disease. Reviewed, dictated and finalized at location A. ENT SUPPORT REPRESENTATIVE
--- NOTE | 2024-07-01 12:39 | ED_ITS ---
HPI - URI/Sore Throat General Chief Complaint: Upper Respiratory Infection Stated Complaint: R ear pain,chest hurts w/cough,runny nose Time Seen by Provider: 07/01/24 13:16 Source: patient, RN notes reviewed and old records reviewed Mode of arrival: ambulatory Limitations: no limitations History of Present Illness HPI Narrative: 49-year-old female presents to the [facility] with complaints of right ear pain, cough and runny nose that started 3-4 days ago. States she has had chills, reports of fevers of 100. Patient in May was admitted to the hospital for several days for pneumonia and sepsis. Patient has a strong concern for that. Related Data Home Medications ?Medication ?Instructions ?Recorded ?Confirmed ?Last Taken ?Type tizanidine 4 mg tablet 6 mg PO HS 05/10/19 06/10/24 04/19/24 History baclofen 20 mg tablet 40 mg PO BID 12/28/20 06/10/24 04/20/24 History gabapentin 600 mg tablet 600 mg PO TID 03/25/23 06/10/24 04/20/24 History omeprazole 40 mg capsule,delayed 40 mg PO DAILY 03/25/23 06/10/24 04/19/24 History release amitriptyline 10 mg tablet 10 mg PO QHS 05/21/24 06/10/24 Unknown History baclofen 20 mg tablet 80 mg PO QHS 05/21/24 06/10/24 Unknown History nystatin 100,000 unit/gram topical 1 applic topical TID PRN rash on 05/21/24 06/10/24 Unknown History powder stomach Allergies Allergy/AdvReac Type Severity Reaction Status Date / Time Penicillins Allergy Unknown Unknown Verified 07/01/24 12:40 Sulfa (Sulfonamide Allergy Unknown Unknown Verified 07/01/24 12:40 Antibiotics) Review of Systems Review of Systems: All systems reviewed & are unremarkable except as noted in HPI and below Constitutional: Constitutional: Reports no additional constitutional complaints ENT: Reports otalgia and Reports nasal discharge Cardiovascular: Cardiovascular: Reports no additional cardiovascular complaints, Denies chest pain and Denies dyspnea Respiratory: Respiratory: Reports as per HPI, Denies chest congestion, Reports cough and Denies dyspnea Musculoskeletal: Musculoskeletal: Reports no additional musculoskeletal complaints Integumentary/Breasts: Skin/Breast: Reports system reviewed and no additional complaints, except as docu PMFSH Past Medical History Medical History Irritable bowel syndrome Hyperlipidemia Heart disease GERD (gastroesophageal reflux disease) Diabetes Asthma Anxiety Hypertension Multiple sclerosis Surgical History Surgical History History of partial hysterectomy History of appendectomy Family History Family History Mother Asthma Cancer Hypertension Father Cancer Depression Heart disease Alcoholism Sibling Cancer Grandparent Cancer Social History Social History Smoking status: Never smoker Second hand tobacco smoke exposure: No Alcohol intake: never Substance use: never Substance use type: does not use Do You Feel Safe in your Home?: Yes Lack of Transportation: No Lack of Food: Never True Current Housing: I Have Housing Concerned About Future Housing: No Difficulty Paying Gas/Electric Bills: No Difficulty Paying for Meds: No Currently Unemployed: No Education: High School Diploma/GED Difficulty w/ Childcare or Family Care: No Living arrangements: alone Gender identity (if verbalized by the patient): Female Sexual Orientation (if Verbalized by the Patient): Straight or Heterosexual Spiritual care concerns: No Comments At the time of my signature, I reviewed and agree with the nursing past medical, surgical, social, and family history. There is no relevant family history pertinent to the patient complaint. Exam Const: General: cooperative, healthy appearing, comfortable, no acute distress, well developed, alert and well nourished Nutritional Appearance: well nourished Orientation/consciousness: patient oriented x3 Limitations: no limitations HENMT: Head: normal to inspection Ears: hearing grossly normal bilaterally, external ears normal, EAC's normal, mastoids normal, no periauricular adenopathy and TM abnormal with fluid behind the TM bilateral Face/Nose/Sinus: Normal external nose present, Normal nares present, Normal nasal mucous membranes and turbinates present and Nasal discharge present clear Throat: posterior oropharynx normal, uvula midline, postnasal drainage and no uvular edema Eyes: General: appearance normal, both eyes and all related structures Alignment and Position: alignment normal Neck: Neck: normal visual inspection, full ROM, no lymphadenopathy and no meningeal signs Chest: Chest palpation & inspection: normal inspection of the chest Resp: Effort & Inspection: normal respiratory effort and able to speak in complete sentences Auscultation: clear to auscultation bilaterally, no crackles, no rales, no rhonchi and no wheezes Cardio: Rate: regular rate Skin: General skin exam: normal color and no rashes or lesions noted Neuro: General: patient oriented x3, gait normal, moves all extremities and no meningeal signs Cognition (Neuro): normal cognition Speech: normal speech Gait exam (Neuro): Normal gait present Extrem: General: normal to inspection, full ROM, capillary refill normal and normal gait Psych: Appearance: grossly normal and well kempt Mental Status: mental status grossly normal Speech and movement: Normal speech and movement present and Clear speech present Affect: normal affect Attitude: cooperative Course Course Level of Care: Express Care Visit Vital Signs Vital signs: Vital Signs Temperature 98.0 F 07/01/24 12:45 Pulse Rate 77 07/01/24 12:45 Respiratory Rate 16 07/01/24 12:45 Blood Pressure 136/85 07/01/24 12:45 Pulse Oximetry 100 07/01/24 12:45 Oxygen Delivery Room Air 07/01/24 12:45 Temperature 98.0 F 07/01/24 12:45 Pulse Rate 77 07/01/24 12:45 Respiratory Rate 16 07/01/24 12:45 Blood Pressure 136/85 07/01/24 12:45 Pulse Oximetry 100 07/01/24 12:45 Oxygen Delivery Room Air 07/01/24 12:45 Reviewed MDM - URI/Sore Throat MDM Narrative Medical decision making narrative: Patient sitting comfortably in exam room. Nontoxic, vitals stable. Patient acute distress. Patient presents with 3-4 day history of URI symptoms. Recently admitted with pneumonia. Chest x-ray, flu and COVID are all negative. Patient appropriate for outpatient treatment most likely bronchitis. Will cover with antibiotic a due to recent pneumonia. Discharge instructions reviewed with patient, as well as provided in writing per nursing staff. The instructions also include specific and strict return/GO TO THE ER as well as f/u information. All questions have been answered, and the patient deny any further questions with discharge and discharge plan. Some parts of this dictation were generated by voice recognition software and may contain typographical and/or grammatical inaccuracies. Differential Diagnosis Differential diagnosis: Likely upper respiratory infection, otitis media, sinusi tis, viral infection, influenza and pharyngitis Lab Data Labs: Lab Results 07/01/24 Range/Units 12:48 POC Influenza A Ag Negative (Negative) POC Influenza B Ag Negative (Negative) POC SARS CoV-2 Ag Negative (Negative) Reviewed Imaging Data Radiologist's impression: EXAMINATION: XR chest 2V DATE: 07/01/2024 13:42 INDICATION: Cough. TECHNIQUE: PA and lateral views of the chest were obtained. COMPARISON: Chest radiograph dated 06/11/2024 FINDINGS: The lungs remain clear with no focal airspace opacities, pulmonary edema, pleural effusion or pneumothorax. The cardiomediastinal silhouette is normal. Moderate thoracic spondylosis. Cholecystectomy clips in right upper quadrant. IMPRESSION: 1. No acute cardiopulmonary disease. Critical Care Time Critical Care Time Critical Care Time: No Discharge Plan Discharge Clinical Impression: Bronchitis Upper respiratory infection Qualifiers: URI type: unspecified viral URI Qualified Code(s): J06.9 - Acute upper respiratory infection, unspecified Patient Disposition: Home, Self-Care Condition: Stable Instructions: Antibiotic Form, Acute Bronchitis (ED) Additional Instructions: Your chest x-ray did not show signs of a pneumonia. It is important that you do take 10 deep breaths every hour to help prevent pneumonia from forming Your rapid COVID test were negative Your rapid flu test was negative It is very important to treat your symptoms. Drink plenty of water, Gatorade, Pedialyte, ice pops or Jell-O. -Alternate Tylenol and Motrin per package directions for fever or pain. You can alternate every 4 hours -Antihistamine medication such as Zyrtec/Claritin/Alaina during the day can help improve symptoms. -doing daily nasal irrigations can help relieve pressure your sinuses. Things like a Neti pot -Use Flonase twice a day for 5 days then daily to help reduce the inflammation and dry up your sinuses. -You can also use Mucinex. Be sure to drink plenty of water with this medication at least 8 ounces with every dose and it is important to drink 8 to 10 glasses of water per day. Water is a natural decongestant -Eat and drink things that are easy to swallow, like tea or soup, or popsicles. -Oral rinses such as: Salt water gargles and/or may use topical anesthetic (eg. Chloraseptic spray) or lozenges to relieve dryness or throat pain). -Frequent hand washing or hand knot saw operator is one of the best ways to prevent spread of infection. -Using a vaporizer or humidifier at night will also help thin secretions and help with coughing up phlegm. -Follow up with primary care provider in 7-10 days if condition is not improving - For new or worsening symptoms go directly to the nearest ER Patient Language: Gambian Prescriptions: New azithromycin 250 mg tablet See Rx Instructions .ROUTE .COMPLEX Qty: 6 0RF Rx Instructions: take 500 mg today (day 1), then 250 mg for 4 days (days 2-5) No Action baclofen 20 mg tablet 40 mg PO BID Rx Instructions: 0900 &1300 gabapentin 600 mg tablet 600 mg PO TID omeprazole 40 mg capsule,delayed release(DR/EC) 40 mg PO DAILY benzonatate 200 mg capsule 200 mg PO TID PRN (Reason: cough) Qty: 30 0RF baclofen 20 mg tablet 80 mg PO QHS amitriptyline 10 mg tablet 10 mg PO QHS nystatin 100,000 unit/gram powder 1 applic topical TID PRN (Reason: rash on stomach) tizanidine 4 mg Tablet 6 mg PO HS Mounjaro 15 mg/0.5 mL pen injector 15 mg subcut WEEKLY Qty: 2 0RF Mounjaro 12.5 mg/0.5 mL pen injector 12.5 mg subcut WEEKLY Qty: 2 3RF Rx Instructions: takes weekly on mondays hydrocodone-acetaminophen 10-325 mg tablet 1 tablet PO Q4H PRN (Reason: pain (scale score 7-10)) Qty: 150 0RF lorazepam 2 mg tablet 2 mg PO HS Qty: 30 0RF Follow-up/Referrals: Reginald Lock MD [Primary Care Provider] - 3 Days ([facility] follow-up) Stand Alone Forms: Work/School Release IP Time of Disposition: 14:07
[2024-07-01 12:45] VITALS: BP 136/85; PULSE 77; RESP 16; TEMP 36.7; O2SAT 100
[2024-07-01 13:08] LABS: EDCOVIDSCREEN Negative (Negative); EDINFLUASCREEN Negative (Negative); EDINFLUBSCREEN Negative (Negative)
== END 2024-07-01 14:15 | disposition home or self-care (01) ==
PROVIDERS: Emergency Provider Nurse Practitioner; PCP Family Medicine
DX: J06.9 Acute upper respiratory infection, unspecified (principal); J40 Bronchitis, not specified as acute or chronic; E78.5 Hyperlipidemia, unspecified; K21.9 Gastro-esophageal reflux disease without esophagitis; E11.9 Type 2 diabetes mellitus without complications; I10 Essential (primary) hypertension; F41.9 Anxiety disorder, unspecified; Z20.822 Contact with and (suspected) exposure to COVID-19
CPT/HCPCS: 71046; 87426; 87804; 99213; G0463

== ENCOUNTER 2024-08-14 13:16 | Emergency (ER) | payer MEDICARE, MEDICAID, SELFPAY ==
--- NOTE | ~2024-08-14 | XR_ITS ---
EXAMINATION: XR chest 2V DATE: 08/14/2024 14:19 INDICATION: Cough. TECHNIQUE: Frontal and lateral views of the chest were obtained. COMPARISON: Chest 2 views 07/01/2024, CT abdomen and pelvis 05/21/2024 FINDINGS: There is no pneumonia, pleural effusion, or pneumothorax. The heart size is normal. Surgica l clips in the right upper quadrant are likely from cholecystectomy. IMPRESSION: 1. No acute cardiopulmonary disease. Reviewed, dictated and finalized at location A. R INSPECTOR
[2024-08-14 13:23] VITALS: BP 126/91; PULSE 73; RESP 16; TEMP 36.6; O2SAT 100
--- NOTE | 2024-08-14 13:40 | ED_ITS ---
HPI - URI/Sore Throat General Chief Complaint: Upper Respiratory Infection Stated Complaint: COUGH/CHEST Time Seen by Provider: 08/14/24 13:40 Source: patient Mode of arrival: ambulatory Limitations: no limitations History of Present Illness HPI Narrative: 49-year-old female presents with complaint of cough, congestion, fatigue starting yesterday. Reports heaviness and pain with coughing in chest. Afebrile. History of asthma. Has been using albuterol inhaler. No respiratory distress noted. Patient states she was sick last week but had been feeling better. Patient requesting chest x-ray, concerned she has pneumonia. All systems reviewed and negative except as noted above. Related Data Home Medications ?Medication ?Instructions ?Recorded ?Confirmed ?Last Taken ?Type tizanidine 4 mg tablet 6 mg PO HS 05/10/19 06/10/24 04/19/24 History baclofen 20 mg tablet 40 mg PO BID 12/28/20 06/10/24 04/20/24 History gabapentin 600 mg tablet 600 mg PO TID 03/25/23 06/10/24 04/20/24 History omeprazole 40 mg capsule,delayed 40 mg PO DAILY 03/25/23 06/10/24 04/19/24 History release amitriptyline 10 mg tablet 10 mg PO QHS 05/21/24 06/10/24 Unknown History baclofen 20 mg tablet 80 mg PO QHS 05/21/24 06/10/24 Unknown History nystatin 100,000 unit/gram topical 1 applic topical TID PRN rash on 05/21/24 06/10/24 Unknown History powder stomach Allergies Allergy/AdvReac Type Severity Reaction Status Date / Time Penicillins Allergy Mild Hives Verified 08/14/24 13:19 Sulfa (Sulfonamide Allergy Mild Hives Verified 08/14/24 13:19 Antibiotics) Review of Systems Review of Systems: CONSTITUTIONAL: Denies fever, chills, or sweats. Reports fatigue. EYES: Denies visual changes, redness, or discharge. ENT: Reports rhinorrhea, congestion. Denies sore throat, or otalgia. CARDIOVASCULAR: Denies chest pain, palpitations, or edema. RESPIRATORY: Reports cough. Denies dyspnea. GASTROINTESTINAL: Denies abdominal pain, nausea, vomiting, or diarrhea. GENITOURINARY: Denies dysuria or hematuria. SKIN: Denies rash or itching. MUSCULOSKELETAL: Denies back pain, joint pain, or myalgia. NEUROLOGIC: Denies headache, numbness, or weakness. PSYCHIATRIC: Denies anxiety or depression. All other systems reviewed are negative, except as documented in HPI. [facility] Past Medical History Medical History Irritable bowel syndrome Hyperlipidemia Heart disease GERD (gastroesophageal reflux disease) Diabetes Asthma Anxiety Hypertension Multiple sclerosis Surgical History Surgical History History of partial hysterectomy History of appendectomy Family History Family History Mother Asthma Cancer Hypertension Father Cancer Depression Heart disease Alcoholism Sibling Cancer Grandparent Cancer Social History Social History Smoking status: Never smoker Second hand tobacco smoke exposure: No Alcohol intake: never Substance use: never Substance use type: does not use Do You Feel Safe in your Home?: Yes Lack of Transportation: No Lack of Food: Never True Current Housing: I Have Housing Concerned About Future Housing: No Difficulty Paying Gas/Electric Bills: No Difficulty Paying for Meds: No Currently Unemployed: No Education: High School Diploma/GED Difficulty w/ Childcare or Family Care: No Living arrangements: alone Gender identity (if verbalized by the patient): Female Sexual Orientation (if Verbalized by the Patient): Straight or Heterosexual Spiritual care concerns: No Comments At time of signature, agree with nursing past medical, surgical, social and family history. There is no relevant family history pertinent to the presenting complaint. Exam Narrative: GENERAL: This is a well-nourished, well-developed patient, ill-appearing but in no acute distress HEAD: normocephalic, atraumatic. EYES: PERRL. Sclera clear/white. Vision is grossly intact. EARS: External ears normal, auditory canals clear and without drainage, TMs normal without perforation. Hearing grossly intact. NOSE: External nose normal with congestion with clear nasal drainage, erythema to bilateral nares THROAT: Mucous membranes moist, posterior pharynx clear. NECK: Neck supple, non-tender without lymphadenopathy, masses or thyromegaly. CARDIOVASCULAR: Regular rate and rhythm without murmurs, gallops, or rubs. RESPIRATORY: Clear to auscultation. Breath sounds equal bilaterally. No wheezes, rales, or rhonchi. SKIN: warm, Dry, intact with no suspicious lesions or rash, good texture and turgor. NEURO: awake, alert, and oriented to person, place and time. There were no obvious focal neurologic abnormalities. EXTREMITIES: No joint tenderness, effusion, or edema noted. Course Course Level of Care: Express Care Visit Vital Signs Vital signs: Vital Signs Temperature 36.6 C 08/14/24 13:23 Pulse Rate 73 08/14/24 13:23 Respiratory Rate 16 08/14/24 13:23 Blood Pressure 126/91 H 08/14/24 13:23 Pulse Oximetry 100 08/14/24 13:23 Temperature 36.6 C 08/14/24 13:23 Pulse Rate 73 08/14/24 13:23 Respiratory Rate 16 08/14/24 13:23 Blood Pressure 126/91 H 08/14/24 13:23 Pulse Oximetry 100 08/14/24 13:23 Reviewed MDM - URI/Sore Throat MDM Narrative Medical decision making narrative: Negative COVID and influenza testing. Chest x-ray negative for pneumonia. Will treat patient with benzonatate, steroids for viral upper respiratory. History of asthma. No wheezing on auscultation. Please be advised this is a medical document. It is intended for [id number] communication. It is written in medical language and may contain unfamiliar abbreviations or verbiage. Medical documents are intended to carry relevant information, facts as evident, and the clinical opinion of the practitioner at the time of the encounter. This report may have been done utilizing a voice recognition system. Attempts have been made to correct errors. However, there may be uncorrected grammatical, spelling, and recognition errors present. The file time of this note does not necessarily represent the time of service. Differential Diagnosis Differential diagnosis: Likely upper respiratory infection, sinusitis, viral infection, bronchitis and influenza Lab Data Labs: Lab Results 08/14/24 Range/Units 14:00 POC Influenza A Ag Negative (Negative) POC Influenza B Ag Negative (Negative) POC SARS CoV-2 Ag Negative (Negative) Imaging Data My impression: agree wt radiologist Radiologist's impression: EXAMINATION: XR chest 2V DATE: 08/14/2024 14:19 INDICATION: Cough. TECHNIQUE: Frontal and lateral views of the chest were obtained. COMPARISON: Chest 2 views 07/01/2024, CT abdomen and pelvis 05/21/2024 FINDINGS: There is no pneumonia, pleural effusion, or pneumothorax. The heart size is normal. Surgical clips in the right upper quadrant are likely from cholecystectomy. IMPRESSION: 1. No acute cardiopulmonary disease. Discharge Plan Discharge Clinical Impression: Viral upper respiratory tract infection with cough Patient Disposition: Home, Self-Care Condition: Stable Instructions: Upper Respiratory Infection (ED) Additional Instructions: Your COVID and influenza test was negative today. Your chest x-ray was negative for pneumonia. Your symptoms are viral and may last 10-14 days. Take medications as prescribed. Take [id number] pseudoephedrine as needed to treat congestion. This medication is found by the pharmacy counter. Drink at least 64 oz water a day. Follow-up with your primary care physician if symptoms are not improving. Patient Language: Danish Prescriptions: New benzonatate 200 mg capsule 200 mg PO TID PRN (Reason: cough) Qty: 20 0RF prednisone 20 mg tablet 40 mg PO DAILY 5 Days Qty: 10 0RF No Action azithromycin 250 mg tablet See Rx Instructions .ROUTE .COMPLEX Qty: 6 0RF Rx Instructions: take 500 mg today (day 1), then 250 mg for 4 days (days 2-5) baclofen 20 mg tablet 40 mg PO BID Rx Instructions: 0900 &1300 gabapentin 600 mg tablet 600 mg PO TID omeprazole 40 mg capsule,delayed release(DR/EC) 40 mg PO DAILY benzonatate 200 mg capsule 200 mg PO TID PRN (Reason: cough) Qty: 30 0RF baclofen 20 mg tablet 80 mg PO QHS amitriptyline 10 mg tablet 10 mg PO QHS nystatin 100,000 unit/gram powder 1 applic topical TID PRN (Reason: rash on stomach) tizanidine 4 mg Tablet 6 mg PO HS Mounjaro 15 mg/0.5 mL pen injector 15 mg subcut WEEKLY Qty: 2 0RF Mounjaro 12.5 mg/0.5 mL pen injector 12.5 mg subcut WEEKLY Qty: 2 3RF Rx Instructions: takes weekly on mondays hydrocodone-acetaminophen 10-325 mg tablet 1 tablet PO Q4H PRN (Reason: pain (scale score 7-10)) Qty: 150 0RF lorazepam 2 mg tablet 2 mg PO HS Qty: 30 0RF Follow-up/Referrals: Reginald Lock MD [Primary Care Provider] - Time of Disposition: 14:48
[2024-08-14 14:03] LABS: EDCOVIDSCREEN Negative (Negative); EDINFLUASCREEN Negative (Negative); EDINFLUBSCREEN Negative (Negative)
== END 2024-08-14 14:55 | disposition home or self-care (01) ==
PROVIDERS: Emergency Provider Nurse Practitioner Family; PCP Family Medicine
DX: J06.9 Acute upper respiratory infection, unspecified (principal); B97.89 Other viral agents as the cause of diseases classified elsewhere; E78.5 Hyperlipidemia, unspecified; I10 Essential (primary) hypertension; E11.9 Type 2 diabetes mellitus without complications; Z20.822 Contact with and (suspected) exposure to COVID-19
CPT/HCPCS: 71046; 87426; 87804; 99213; G0463

== ENCOUNTER 2024-11-11 13:03 | Outpatient (CLI) | payer MEDICARE, MEDICAID, SELFPAY ==
--- NOTE | ~2024-11-11 | XR_ITS ---
XR hip BI wo pelvis Ordering provider: Reginald Lock MD History: . M25.559 - Pain in unspecified hip . Comparison: None. FINDINGS: BONES: No acute fracture or dislocation. HIP JOINT SPACES: Bilateral hip mild to moderate osteoarthritic changes. SACROILIAC JOINT SPACES/LUMBAR SPINE: The sacroiliac joint spaces are normal. Mild degenerative zamora es of the visualized lower lumbar spine. PUBIC SYMPHYSIS: Cystic changes in the pubic bones suggestive of osteoarthritic changes SOFT TISSUES: Normal. IMPRESSION: No acute osseous abnormality of the bilateral hips and pelvis. Bilateral mild to moderate osteoarthritic changes of the hips. Reviewed, dictated and finalized at location A.
== END 2024-11-11 13:04 | disposition home or self-care (01) ==
LOC: MICIMG 13:05
PROVIDERS: PCP Family Medicine; Visit Provider Family Medicine
DX: M16.0 Bilateral primary osteoarthritis of hip (principal)
CPT/HCPCS: 73521

== ENCOUNTER 2025-03-10 12:44 | Outpatient (CLI) | payer MEDICARE, MEDICAID, SELFPAY ==
--- NOTE | ~2025-03-10 | XR_ITS ---
EXAMINATION: XR chest 2V, 03/10/2025 12:50 CDT HISTORY: R05.9 - Cough, unspecified, CONGESTION HX ASTHMA X 3+ DAYS COMPARISON: No comparisons available. Technique: 2 views obtained. Findings: The lungs are clear, no effusion. No pneumothorax. Heart is normal size. Mediastinal and hilar contours are within normal limits. Bony thorax no acute abnormality. Impression: No acute cardiopulmonary abnormality. Reviewed, dictated and finalized at location A. Impression: No acute cardiopulmonary abnormality.
--- OUTSIDE RECORDS SUMMARY | 2025-03-10 13:13 | XMS_ITS | Encounter Summary ---
Author Organization [facility] Address [address] [place] [address] Phone Care Team Providers Care Destination Sign Repairer Name Role Phone Wayne Jaquez Primary Care Provide r Madhuir Esparza DPT Unavailable [phone] Reginald Lock MD Primary Care Provider [phone] Encounter Details Date Type Department Care Team (Latest Contact Info) Description 01/30/2021 Orders Only AUSTEN SHARP MS Scanning, Provider Social History Tobacco Use Types Packs/Day Years Used Date Smoking Tobacco: Never Smokeless Tobacco: Never Alcohol Use Standard Drinks/Week Comments No 0 (1 standard drink = 0.6 oz pur e alcohol) AUDIT-C Answer Date Recorded Q1: How often do you have a drink containing alc ohol? Never 11/14/2020 Average Number of Drinks Not on file 021 Frequency of Binge Drinking Not on file 10/29 Comments No Sex and Gender Information Value Date Recorded Sex Assigned at Not on file Legal Sex Female 7:42 AM MEDICAL DETAIL REPRESENTATIVE Gender Identity Female 11/14/2020 9:16 AM CDT Sexual Orientation Not on file Occupation Industry Job Start Date Job End Date disabled Not on file Not on file Not on file documented as of this encounter Plan of Treatment Not on file documented as of this encounter Procedures Procedure Name Priority Date/Time Associated Diagnosis Comments SCAN - OTHER ORDERS 01/30/2021 4:43 PM CDT documented in this encounter Results * SCAN - OTHER ORDERS (01/30/2021 4:43 PM CDT) us Provider Scanning Final Result documented in this encounter Visit Diagnoses Not on filedocumented in this encounter Additional Health Concerns Infection Onset Date Last Indicated Resolved Time Rhino/Enterovirus 05/17/2023 05/17/2023 05/24/2023 3:05 AM MEDICAL DETAIL REPRESENTATIVE documented as of this encounter Care Teams Destination Sign Repairer Relationship Specialty Start Date End Date Wayne Jaquez DO [address] [place] [id number] PCP - General 10/19/20 08/25/24 Reginald Lock MD [address] [facility] [place] [address] PCP - General Family Practice 08/26/24 Madhuri Esparza DPT [address] [address] Physical Therapist Physical Therapy 11/16/20 documented as of this encounter
--- OUTSIDE RECORDS SUMMARY | 2025-03-10 13:13 | XMS_ITS | Encounter Summary ---
Author Organization [facility] Address [address] [place] [address] Phone Care Team Providers Care Continuous Improvement Facilitator Name Role Phone Edmundo Mendoza MD Primary Care Provider [phone] Casa Alonzo MD Unavailable Magda Cifuentes DO Primary Care Provider [phone] Reason for Visit * Reason Comments Medication Refill Encounter Details Date Type Department Care Team (Late st Contact Info) Description 10/14/2023 [facility]ill [facility] [address]2 [place] [address] Edmundo Mendoza MD #1 [place] [address] Medication Refill Social History Tobacco Use Types Packs/Day Years Used Date Smoking Tobacco: Never Smokeless Tobacco: Never Alcohol Use Standard Drinks/Week Comments Not Currently 0 (1 standard drink = 0.6 oz pur e alcohol) [facility] Utilities Answer Date Recorded In the past 12 months has [employer] electric, gas, oil, or water company threatened to shut off services in your home? No 07/14/2023 Social Connection and Isolation Panel Answer Date Recorded In a typical week, how many times do you talk on the phone with family, friends, or neighbors? More than three times a week 07/14/2023 How often do you get togethe r with friends or relatives? More than three times a week 07/14/2023 How often do you attend chur ch or voodoo services? Patient declined 07/14/2023 Do you belong to any clubs o r organizations such as judaism groups, unions, fraternal or athletic groups, or school groups? No 07/14/2023 How often do you attend meet ings of the clubs or organizations you belong to? Never 07/14/2023 Are you , , di vorced, , never , or living with a partner? 07/14/2023 AUDIT-C Answer Date Recorded Q1: How often do you have a drink containing alcohol? Never 07/14/2023 Q2: How many drinks containi ng alcohol do you have on a typical day when you are drinking? Patient does not drink Q3: How often do you have si x or more drinks on one occasion? Never 07/14/2023 Overall Financial Resource Strain (CARDIA) Answe r Date Recorded How hard is it for you to pa y for the very basics like food, housing, medical care, and heating? Somewhat hard 07/14/2023 PHQ-2 Answer Date Recorded Total Score - Questions 1-9 0 01/30 [facility] of Occupat ional Health - Occupational Stress Questionnaire Answer Date Recorded Do you feel stress - tense, restless, nervous, or anxious, or unable to sleep at night because your mind is troubled all the time - these days? To some extent 07/14/2023 Exercise Vital Sign Answer Date Recorde d On average, how many days pe r week do you engage in moderate to strenuous exercise (like a brisk walk)? Patient declined On average, how many minutes do you engage in exercise at this level? Patient declined 07/14/2023 Hunger Vital Sign Answer Date Recorded Within the past 12 months, y ou worried that your food would run out before you got the money to buy more. Sometimes true Within the past 12 months, t he food you bought just didn't last and you didn't have money to get more. Patient declined PRAPARE - Transportation Answer Date Re corded In the past 12 months, has l ack of transportation kept you from medical appointments or from getting medications? No 07/01 In the past 12 months, has l ack of transportation kept you from meetings, work, or from getting things needed for daily living? No 07/14/2023 Housing Stability Vital Sign Answer Valentin e Recorded In the last 12 months, was t here a time when you were not able to pay the mortgage or rent on time? No 07/14/2023 Number of Places Lived in the Last Year Not on f ile 07/14/2023 In the last 12 months, was t here a time when you did not have a steady place to sleep or slept in a residential (including now)? No 07/14/2023 Education Answer Date Recorded What is the highest level of school you have completed or the highest degree you have received? Associate degree: occupational, technical, or vocational program 08/15/2022 Sexually Active Control Partners Comments Yes Other Male Partial hystere ctomy Comments No Sex and Gender Information Value Date Recorded Sex Assigned at Not on file Legal Sex Female 8:04 AM CDT Gender Identity Not on file Sexual Orientation Not on file documented as of this encounter Miscellaneous Notes * Telephone Encounter - Rylee Lujan RN - 10/15/2023 8:42 AM CDT Medication(s) [facility] and [facility] per [facility] Chronic Medication Refill Standing Order for Pediatricand Adult Patients. Requested Prescriptions Pending Prescriptions Disp Refills omeprazole (PriLOSEC) 40 MG CAPSULE DELAYED RELEASE [Pharmacy Med Name: OMEPRAZOLE 40MG CAPSULES] 90 Capsule 1 Sig: TAKE 1 CAPSULE BY MOUTH DAILY Proton Pump Inhibitors Protocol Passed - 10/14/2023 4:09 PM Passed - Visit with relevant provider in past 12 months or upcoming 90 days Recent Visits Date Type Provider Dept 07/15/23 Office Visit Chidi Urias APRN, [facility] 02/26/23 Office Visit Chidi Urias APRN, [facility] 10/22/22 Office Visit Edmundo Mendoza MD [facility] Showing recent visits within past 365 days and meeting all other requirements Future Appointments Date Type Provider Dept 11/15/23 Appointment Edmundo Mendoza MD [facility] Showing future appointments within next 90 days and meeting all other requirements documented in this encounter Plan of Treatment Not on file documented as of this encounter Visit Diagnoses Diagnosis Gastroesophageal reflux disease, unspecified whether esophagitis present documented in this encounter Additional Health Concerns Assessment Noted Time PHQ-9 Depression Total Score: 0 02/27/20 23 2:22 PM CDT documented as of this encounter Care Teams Continuous Improvement Facilitator Relationship Specialty Start Date End Date Edmundo Mendoza MD PCP - General Family Medicine 01/16/21 01/14/24 Magda Cifuentes DO 2 [facility] [address] [place] [address] PCP - General Family Medicine 01/16/24 Casa Alonzo MD #[address] [address] Consulting Physician Colon and Rectal Surgery 09/03/23 documented as of this encounter
--- OUTSIDE RECORDS SUMMARY | 2025-03-10 13:13 | XMS_ITS | Encounter Summary ---
Author Organization [facility] Address [address] [place] [address] Phone Care Team Providers Care Supervisor Particleboard Name Role Phone Isaias Madhuridiandra Min DPT Unavailable [phone] Reginald Lock MD Primary Care Provider [phone] Encounter Details Date Type Department Care Team (Late st Contact Info) Description 01/08/2025 Results Follow-Up [facility] Multiple Sclerosis [address] [facility] Advanced Medicine 7th [place] [address] Julieth Jha, TRAFFIC AND TRANSPORT PLANNER [address] [place] [address] MRI Cervical Spine W WO Contrast Social History Tobacco Use Types Packs/Day Years [...] of Binge Drinking Not on file 10/29 Hunger Vital Sign Answer Date Recorded Within the past 12 months, y ou worried that your food would run out before you got the money to buy more. Never true 07/15/19 25 Within the past 12 months, t he food you bought just didn't last and you didn't have money to get more. Never true 07/15/2024 Personal Safety Answer Date Recorded Have you ever been in or are you currently in a harmful physical or emotional relationship or is someone making you feel afraid or unsafe? Denies 07/15/2024 Comments No Sex and Gender Information Value Date Recorded Sex Assigned at Not on file Legal Sex Female 7:42 AM RESTORATION OFFICER Gender Identity Female 11/14/2020 9:16 AM CDT Sexual Orientation Not on file Occupation Industry Job Start Date Job End Date disabled Not on file Not on file Not on file documented as of this encounter Plan of Treatment Not on file documented as of this encounter Visit Diagnoses Not on filedocumented in this encounter Care Teams Supervisor Particleboard Relationship Specialty Start Date End Date Reginald Lock MD [address] [place] [address] PCP - General Family Practice 08/26/24 Madhuri Esparza DPT [address] [place] [address] Physical Therapist Physical Therapy 11/16/20 documented as of this encounter
--- OUTSIDE RECORDS SUMMARY | 2025-03-10 13:13 | XMS_ITS | Encounter Summary ---
Author Organization [facility] Address [address] [place] [address] Phone Care Team Providers Care Presto Log Operator Name Role Phone Edmundo Mendoza MD Primary Care Provider [phone] Casa Alonzo MD Unavailable Magda Cifuentes DO Primary Care Provider [phone] Reason for Visit * Reason Comments Medication Refill Encounter Details Date Type Department Care Team (Late st Contact Info) Description 08/01/2023 Refill [facility] [address]2 [place] [address] Edmundo Mendoza MD [address] [place] [address] Medication Refill Social History Tobacco Use Types Packs/Day Years Used Date Smoking Tobacco: Never Smokeless Tobacco: Never Alcohol Use Standard Drinks/Week Comments Not Currently 0 (1 standard drink = 0.6 oz pur e alcohol) [facility] Utilities Answer Date Recorded In the past 12 months has [employer] electric, gas, oil, or water company threatened [...] often do you attend chur ch or sikh services? Patient declined 07/14/2023 Do you belong to any clubs o r organizations such as bahai groups, unions, fraternal or athletic groups, or [...] Total Score - Questions 1-9 0 01/30 [facility] of Occupat ional Health - Occupational Stress [...] place to sleep or slept in a retirement (including now)? No 07/14/2023 Education Answer Date [...] Telephone Encounter - Rylee Lujan RN - 08/02/2023 11:25 AM CST Images from the original note were not included. Omeprazole Dispensed Days Supply Quantity Provider Pharmacy OMEPRAZOLE 40MG CAPSULES 07/26/2023 90 90 Each Edmundo Mendoza MD [facility] #... OMEPRAZOLE 40MG CAPSULES 05/27/2023 90 90 Each Edmundo Mendoza MD [facility] #... TRONIC EQUIPMENT REPAIRMEN documented in this encounter Plan of Treatment Not on file documented as of this encounter Visit Diagnoses Diagnosis Gastroesophageal reflux disease, unspecified whether esophagitis present documented in this encounter Additional Health Concerns Assessment Noted Time PHQ-9 Depression Total Score: 0 02/27/20 23 2:22 PM CDT documented as of this encounter Care Teams Presto Log Operator Relationship Specialty Start Date End Date Edmundo Mendoza MD PCP - General Family Medicine 01/16/21 01/14/[address] [facility] [address] [place] [address] PCP - General Family Medicine 01/16/24 Casa Alonzo MD #2 [facility] [address] [place] [address] Consulting Physician Colon and Rectal Surgery 09/03/23 documented as of this encounter
--- OUTSIDE RECORDS SUMMARY | 2025-03-10 13:13 | XMS_ITS | Encounter Summary ---
Author Organization [facility] Address [address] [place] [address] Phone Care Team Providers Care Managed Care Coordinator Name Role Phone Casa Alonzo MD Unavailable Magda Cifuentes DO Primary Care Provider [phone] Reason for Visit * Reason Comments Medication Refill Encounter Details Date Type Department Care Team (Late st Contact Info) Description 01/19/2025 Refill [facility] - Family Medicine [facility] [address] [place] [address] Chidi Urias APRN, GEOSCIENCES ASSOCIATE PROFESSOR #[address] [address] Medication Refill Social History Tobacco Use Types Packs/Day Years Used Date Smoking Tobacco: Never Smokeless Tobacco: Never Alcohol Use Standard Drinks/Week Comments Not Currently 0 (1 standard drink = 0.6 oz pur e alcohol) [facility] Utilities Answer Date Recorded In the past 12 months has [employer] electric, gas, oil, or water company threatened to shut off services in your home? No 01/16/2024 Social Connection and Isolation Panel Answer Date Recorded In a typical week, how many times do you talk on the phone with family, friends, or neighbors? Twice a week 01/16/2024 How often do you get together with friends or re latives? Once a week 01/16/2024 How often do you attend adventist or hoahaoism serv ices? Never 01/16/2024 Do you belong to any clubs o r organizations such as adventist groups, unions, fraternal or athletic groups, or school groups? No 01/16/2024 How often do you attend meet ings of the clubs or organizations you belong to? Never 01/16/2024 Are you , , di vorced, , never , or living with a partner? 01/16/2024 AUDIT-C Answer Date Recorded Q1: How often do you have a drink containing alcohol? Never 01/16/2024 Q2: How many drinks containi ng alcohol do you have on a typical day when you are drinking? Patient does not drink Q3: How often do you have si x or more drinks on one occasion? Never 01/16/2024 Overall Financial Resource Strain (CARDIA) Answe r Date Recorded How hard is it for you to pa y for the very basics like food, housing, medical care, and heating? Not very hard 01/16/2024 PHQ-2 Answer Date Recorded Total Score - Questions 1-9 0 01/30 [facility] of Occupat ional Health - Occupational Stress Questionnaire Answer Date Recorded Do you feel stress - tense, restless, nervous, or anxious, or unable to sleep at night because your mind is troubled all the time - these days? To some extent 01/16/2024 Exercise Vital Sign Answer Date Recorde d On average, how many days pe r week do you engage in moderate to strenuous exercise (like a brisk walk)? 2 days 01/16/2024 On average, how many minutes do you engage in exercise at this level? 20 min 01/16/2024 Hunger Vital Sign Answer Date Recorded Within the past 12 months, y ou worried that your food would run out before you got the money to buy more. Never true 01/16/20 24 Within the past 12 months, t he food you bought just didn't last and you didn't have money to get more. Never true 01/16/2024 PRAPARE - Transportation Answer Date Re corded In the past 12 months, has l ack of transportation kept you from medical appointments or from getting medications? Yes 12/29 In the past 12 months, has l ack of transportation kept you from meetings, work, or from getting things needed for daily living? No 01/16/2024 Housing Stability Vital Sign Answer Valentin e Recorded In the last 12 months, was t here a time when you were not able to pay the mortgage or rent on time? Yes 11/26/2023 In the last 12 months, how many places have you lived? 1 11/26/2023 In the last 12 months, was t here a time when you did not have a steady place to sleep or slept in a group home (including now)? No 11/26/2023 Housing Stability Vital Sign Answer Valentin e Recorded In the last 12 months, was t here a time when you were not able to pay the mortgage or rent on time? No 01/16/2024 In the past 12 months, how m any times have you moved where you were living? 0 01/16/2024 At any time in the past 12 m [facility], were you homeless or living in a group home (including now)? No 01/16/2024 Education Answer Date Recorded What is the [...] Telephone Encounter - Rylee Lujan RN - 01/19/2025 1:42 PM CDT No Show and cancellation since last appt over a year ago. Can purchase this medication OTC Needs annual OV for Rx documented in this encounter Plan of Treatment Not on file documented as of this encounter Visit Diagnoses Not on filedocumented in this encounter Additional Health Concerns Assessment Noted Time PHQ-9 Depression Total Score: 0 02/27/20 2:22 PM CDT documented as of this encounter Care Teams Managed Care Coordinator Relationship Specialty Start Date End Date Magda Cifuentes DO [address] [place] [address] PCP - General Family Medicine 01/16/24 Casa Alonzo MD #[address] [address] Consulting Physician Colon and Rectal Surgery 09/03/23 documented as of this encounter
--- OUTSIDE RECORDS SUMMARY | 2025-03-10 13:13 | XMS_ITS | Encounter Summary ---
Author Organization [facility] Address [address] [place] [address] Phone Care Team Providers Care Esol Teacher Name Role Phone Edmundo Mendoza MD Primary Care Provider [phone] Casa Alonzo MD Unavailable Magda Cifuentes DO Primary Care Provider [phone] Reason for Visit * Reason Comments Medication Refill Encounter Details Date Type Department Care Team (Late st Contact Info) Description 05/01/2023 Refill [facility] - [place] #[address] [place] [address] Chidi Urias, [employer] DEVELOPER, WOOD DRILLING MACHINE OPERATOR #[address] [address] Medication Refill Social History Tobacco Use Types Packs/Day Years Used Date Smoking Tobacco: Never Smokeless Tobacco: Never Alcohol Use Standard Drinks/Week Comments Not Currently 0 (1 standard drink = 0.6 oz pur e alcohol) PHQ-2 Answer Date Recorded Total Score - Questions 1-9 0 01/30 Education Answer Date Recorded What is the [...] Telephone Encounter - Rylee Lujan RN - 05/03/2023 7:35 AM CDT Name from pharmacy: Ozempic 1 mg/dose (4 mg/3 mL) subcutaneous pen injector Will file in chart as: Ozempic, 1 MG/DOSE, 4 MG/3ML Solution Pen-injector The original prescription was reordered on 05/02/2023 by Edmundo Mendoza MD. * Telephone Encounter - Rylee Lujan RN - 05/02/2023 9:03 AM CDT duplicate documented in this encounter Plan of Treatment Not on file documented as of this encounter Visit Diagnoses Not on filedocumented in this encounter Additional Health Concerns Assessment Noted Time PHQ-9 Depression Total Score: 0 02/27/20 23 2:22 PM CDT documented as of this encounter Care Teams Esol Teacher Relationship Specialty Start Date End Date Edmundo Mendoza MD PCP - General Family Medicine 01/16/21 01/14/24 Magda Cifuentes DO 2 [facility] [address] [place] [address] PCP - General Family Medicine 01/16/24 Casa Alonzo MD #[address] [facility] [address] [place] [address] Consulting Physician Colon and Rectal Surgery 09/03/23 documented as of this encounter
--- OUTSIDE RECORDS SUMMARY | 2025-03-10 13:13 | XMS_ITS | Encounter Summary ---
Author Organization [facility] Address [address] [place] [address] Phone Care Team Providers Care Addictions Recovery Specialist Name Role Phone Edmundo Mendoza MD Primary Care Provider [phone] Casa Alonzo MD Unavailable Magda Cifuentes DO Primary Care Provider [phone] Reason for Visit * Reason Onset Date Comments Medication Management 09/04/2021 Encounter Details Date Type Department Care Team (Late st Contact Info) Description 09/04/2021 Telephone [facility] [address] [place] [address] Edmundo Mendoza MD [address] [place], [place] [id number] Medication Management Social History Tobacco Use Types Packs/Day Years Used Date Smoking Tobacco: Never Smokeless Tobacco: Never Alcohol Use Standard Drinks/Week Comments Not Currently 0 (1 standard drink = 0.6 oz pur e alcohol) PHQ-2 Answer Date Recorded Total Score - Questions 1-9 12 08/02 Education Answer Date Recorded What is the highest level of school you have completed or the highest degree you have received? Some college, no degree 08/04/2021 Sexually Active Control Partners Comments Yes Male Comments No Sex and Gender Information Value Date Recorded Sex Assigned at Not on file Legal Sex Female 8:04 AM CDT Gender Identity Not on file Sexual Orientation Not on file COVID-19 Exposure Response Date Recorded In the last month, have you been in contact with someone who was confirmed or suspected to have Coronavirus / COVID-19? No / Unsure 08/22/2021 8:24 AM BLOWER ROOM ATTENDANT documented as of this encounter Miscellaneous Notes * Telephone Encounter - Joanne Cat - 09/06/2021 12:52 PM CST Patient calling back because she is now out of her lorazepam. Says at her last OV with PCP, it was discussed that could increase to an extra 1/2 tab as needed for anxiety. That was on 08/23. An Rx wassent that day but was for the old Rx of just 2mg - one tab. Patient asking for new Rx to be sent in. Previous Rn has pended. 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 [address] [place] [address] PCP - General Family Medicine 01/16/24 Casa Alonzo MD #2 [facility] [address] [place] [address] Consulting Physician Colon and Rectal Surgery 09/03/23 documented as of this encounter
--- OUTSIDE RECORDS SUMMARY | 2025-03-10 13:13 | XMS_ITS | Encounter Summary ---
Author Organization [facility] Address [address] [place] [address] Phone Care Team Providers Care Ring Facer Name Role Phone Edmundo Mendoza MD Primary Care Provider [phone] Casa Alonzo MD Unavailable Magda Cifuentes DO Primary Care Provider [phone] Reason for Visit * Reason Comments Medication Refill Encounter Details Date Type Department Care Team (Late st Contact Info) Description 06/18/2023 Refill [facility] [address] [place] [address] Edmundo Mendoza MD [address] [place] [address] Medication Refill Social History Tobacco Use Types [...] Telephone Encounter - Rylee Lujan RN - 06/18/2023 4:45 PM CST Medication failed the protocol, provider to review and approve the medication order if appropriate. Requested Prescriptions Pending Prescriptions Disp Refills fluconazole (DIFLUCAN) 150 MG Tablet [Pharmacy Med Name: FLUCONAZOLE 150MG TABLETS] 3 Tablet 0 Sig: TAKE 1 TABLET BY MOUTH DAILY FOR 3 DOSES Not Delegated - Off Protocol Failed - 06/18/2023 2:59 PM Failed - This refill cannot be delegated Failed - Active on medication list Passed - Visit with relevant provider in past 12 months or upcoming 90 days Recent Visits Date Type Provider Dept 02/26/23 Office Visit Chidi Urias APRN, CNP [facility] 10/22/22 Office Visit Edmundo Mendoza MD [facility] 08/15/22 Telemedicine Chidi Urias APRN, CNP [facility] Showing recent visits within past 365 days and meeting all other requirements Future Appointments No visits were found meeting these conditions. Showing future appointments within next 90 days and meeting all other requirements MATE HOOPS TRAINER documented in this encounter Plan of Treatment Not on file documented as of this encounter Visit Diagnoses Diagnosis Thrush Candidiasis of mouth documented in this encounter Additional Health Concerns Assessment Noted Time PHQ-9 Depression Total Score: 0 02/27/20 23 2:22 PM CDT documented as of this encounter Care Teams Ring Facer Relationship Specialty Start Date End Date Edmundo Mendoza MD PCP - General Family Medicine 01/16/21 01/14/24 Magda Cifuentes DO 2 [facility] [address] [place] [address] PCP - General Family Medicine 01/16/24 Casa Al[facility]zo MD [facility] [address] Consulting Physician Colon and Rectal Surgery 09/03/23 documented as of this encounter
--- OUTSIDE RECORDS SUMMARY | 2025-03-10 13:13 | XMS_ITS | Encounter Summary ---
Author Organization [facility] Address [address] [place] [address] Phone Care Team Providers Care Tool Procurement Coordinator Name Role Phone Edmundo Mendoza MD Primary Care Provider [phone] Casa Alonzo MD Unavailable Magda Cifuentes DO Primary Care Provider [phone] Reason for Visit * Reason Comments Medication Refill Encounter Details Date Type Department Care Team (Late st Contact Info) Description 05/03/2023 Refill [facility] - Family Medicine - [place] [address] [place] [address] Chidi Urias, DRAGLINE OILER, GRAIN UNLOADER [address] [address] Medication Refill Social History Tobacco [...] documented as of this encounter Care Teams Tool Procurement Coordinator Relationship Specialty Start Date End Date Edmundo Mendoza MD PCP - General Family Medicine 01/16/21 01/14/24 Magda Cifuentes DO 2 [facility] [address] [place] [address] PCP - General Family Medicine 01/16/24 Casa Alonzo MD #2 [facility] [address] [place] [address] Consulting Physician Colon and Rectal Surgery 09/03/23 documented as of this encounter
--- OUTSIDE RECORDS SUMMARY | 2025-03-10 13:13 | XMS_ITS | Clinical Summary ---
Author Organization [facility] Address [address] [place] [address] Phone Care Team Providers Care Risk Reduction Counselor Name Role Phone Nomfc, External Provider Primary Care Provider U navailable Allergies Active Allergy Reactions Criticality Noted Date Comments Penicillins Hives High 12/11/2018 Sulfa (Sulfonamide Antibiotics) Hives High 11/29 Medications baclofen (LIORESAL) 20 mg tablet Take 20 mg by mouth daily. 3 12/06/2018 Active gabapentin (NEURONTIN) 600 mg tablet Take 600 mg by mouth 2 times daily. 5 11/22/2018 Active LORazepam (ATIVAN) 2 mg tablet Take 2 mg by mouth daily at bedtime. 1 11/14/2018 Active tiZANidine (ZANAFLEX) 2 mg Tablet Take 2 mg by mouth nightly as needed. 0 12/08/2018 Active fluticasone propionate (FLONASE) 50 mcg/spray [facility], Suspension nasal inhaler SHAKE LQ AND U 2 SPRAYS IEN QD PRN 0 04/02/2019 Active HYDROcodone-lluvia taminophen (HYCET) 7.5-325 mg/15 mL SolutionIndicat ions:Morbid obesity with body mass index of 40.0-49.9 (CMS/HCC) Take 10 mL by mouth every 6 hours as needed for Pain. Max Daily Amount: 40 mL 473 mL 06/27/2019 2:52 PM VIDEO EDITOR 06/27/2019 Active nystatin (NYSTOP) 100,000 unit/gram powder Apply to affected area 2 times daily. Active omeprazole (PriLOSEC) 40 mg Capsule, Delayed Release(E.C.) TAKE 1 CAPSULE(40 MG) BY MOUTH DAILY 30 Capsule 3 06/09/2021 Active Active Problems Problem Noted Date Diagnosed Date Morbid obesity with body mass index of 40.0-49.9 06/26/2019 Immunizations Immunization Administration Dates Next Due Influenza Seasonal Unspecified Formulation IM Family History Medical History Relation Name Comments Diabetes Father Heart Disease Father Diabetes Mother Heart Disease Mother Diabetes Paternal Grandmother Heart Disease Paternal Grandmother Colon Cancer Neg Hx Relation Name Status Comments Father Mother Paternal Grandmother Social History Tobacco Use Types Packs/Day Years Used Date Smoking Tobacco: Never Smokeless Tobacco: Never Alcohol Use Standard Drinks/Week Comments Not Currently 0 (1 standard drink = 0.6 oz pur e alcohol) Comments No Sex and Gender Information Value Date Recorded Sex Assigned at Not on file Legal Sex Female 2:34 PM CDT Gender Identity Not on file Sexual Orientation Not on file Last Filed Vital Signs Vital Sign Reading Time Taken Comments Blood Pressure 124/86 09/08/2019 10:17 AM CDT Pulse 58 09/08/2019 10:17 AM CDT Temperature 36.3 C (97.3 F) 06/26/2019 8:29 PM VIDEO EDITOR Respiratory Rate 20 06/26/2019 8:29 PM VIDEO EDITOR Oxygen Saturation 93% 06/26/2019 8:29 PM VIDEO EDITOR Inhaled Oxygen Concentration - - Weight 74.8 kg (165 lb) 02/01/2021 10:21 AM CDT Height 172.7 cm (5' 8) 02/01/2021 10:21 AM CDT Body Mass Index 25.09 02/01/2021 10:21 AM CDT Plan of Treatment Health Maintenance Due Date Last Done Comments DIABETES ANNUAL FOOT EXAM 1994 DIABETES ANNUAL RETINAL EXAM 1994 DIABETES MICROALBUMIN ANNUAL SCREEN 1994 HEPATITIS B VACCINES (1 of 3 - 19+ 3-dose series) 1995 COLORECTAL SCREENING 2021 Colorectal Cancer Screening 2021 FIT-DNA Q 3 years 2021 FIT/FOBT Q 1 year 2021 Flex Sig/CT Colonography Q 5 years 2021 LDL CHOLESTEROL ANNUAL 06/02/2021 06/02/2020 DIABETES HBA1C Q 6 MONTHS 06/22/2021 12/21/2020, 11/2018 BREAST CANCER SCREENING 12/16/2021 12/16/2020, 12/16 INFLUENZA VACCINE (#1) 2025 0, 03/14/2020, 04/23/2019, Additional history exists COVID-19 Vaccine (3 - 2024-2 6 season) 2025 09/22/2020, 09/01/2020 DTAP/TDAP/TD VACCINES (2 - T d or Tdap) 06/19/2026 06/19/2016 Procedures Procedure Name Priority Date/Time Associated Diagnosis Comments LIPID PANEL Routine 06/02/2020 8:50 AM VIDEO EDITOR from Last 3 Months or Most Recently Relevant to Health Maintenance Results * (ABNORMAL) LIPID PANEL (06/02/2020 8:50 AM VIDEO EDITOR) CHOLESTEROL 202(H) 100 - 199 mg/dL [facility] TRIGLYCERIDE 83 0 - 149 mg/dL [facility] HDL 60 >39 mg/dL [facility] VLDL CHOLESTEROL CALCULATED 15 5 - 40 mg/dL [facility] LDL CALCULATED 127(H) 0 - 99 mg/dL [facility] 06/02/2020 8:50 AM VIDEO EDITOR 06/02/2020 Narrative [facility] - 06/03/2020 4:35 AM VIDEO EDITOR Performed at: [facility] [id number] Change Management Administrator: Kelton Kauffman PhD, Phone: [phone] [address] CHEMISTRY ORDERABLES Final R esult [facility] [phone] from Last 3 Months or Most Recently Relevant to Health Maintenance Insurance MEDICARE PART A AND B [place]ICAID [place] RX [employer] RX Member Subscriber Plan / Payer (Ef fective 2019-Present) Name:Verónica Jacobo Relation to Subscriber:Self Name:Verónica Jacobo Subscriber ID:Not on file Payer ID:Not on file Group ID:Not on file Type:RX Medicare Part D Address: [address] Advance Directives For more information, please contact: [phone] Documents on File Type Date Recorded Patient Well Driller Helper Expl anation Advance Directive POA 06/09/2019 11:28 AM * Full Code (Latest Code Status on File) Date Activated Date Inactivated Comments 06/26/2019 11:46 AM 06/27/2019 6:03 PM * Full Code Date Activated Date Inactivated Comments 06/26/2019 7:40 AM 06/26/2019 11:46 AM * Full Code Date Activated Date Inactivated Comments 01/05/2019 12:28 PM 01/05/2019 4:37 PM Care Teams Risk Reduction Counselor Relationship Specialty Start Date End Date Nomfc, External Provider PCP - General 11/27/18
--- OUTSIDE RECORDS SUMMARY | 2025-03-10 13:13 | XMS_ITS | Encounter Summary ---
Author Organization [facility] Address [address] [place] [address] Phone Care Team Providers Care Brush Fabrication Supervisor Name Role Phone Edmundo Mendoza MD Primary Care Provider Casa Alonzo MD Unavailable Magda Cifuentes DO Primary Care Provider [phone] Reason for Visit * Reason Comments Medication Refill Encounter Details Date Type Department Care Team (Late st Contact Info) Description 11/06/2023 Refill [facility] - Family Medicine [facility] [address] [place] [address] Edmundo Mendoza MD [address] [place] [address] Medication Refill Social History Tobacco Use Types Packs/Day Years Used Date Smoking Tobacco: Never Smokeless Tobacco: Never Alcohol Use Standard Drinks/Week Comments Not Currently 0 (1 standard drink = 0.6 oz pur e alcohol) [facility] Utilities Answer Date Recorded In the past 12 months has [employer] electric, gas, oil, or water company threatened [...] often do you attend chur ch or restorationist services? Patient declined 07/14/2023 Do you belong to any clubs o r organizations such as gnosticism groups, unions, fraternal or athletic groups, or [...] Total Score - Questions 1-9 0 01/30 [facility] of Occupat ional Health - Occupational Stress [...] place to sleep or slept in a correction (including now)? No 07/14/2023 Education Answer Date [...] Telephone Encounter - Rylee Lujan RN - 11/06/2023 9:23 AM CDT Images from the original note were not included. [email or web address] Dispensed Days Supply Quantity Provider Pharmacy [facility] 11/04/2023 30 30 Each Edmundo Mendoza MD [facility] #... [facility] 10/01/2023 30 30 Each Edmundo Mendoza MD [facility] #... documented in this encounter Plan of Treatment Not on file documented as of this encounter Visit Diagnoses Diagnosis Irritable bowel syndrome with diarrhea Irritable bowel syndrome documented in this encounter Additional Health Concerns Assessment Noted Time PHQ-9 Depression Total Score: 0 02/27/20 23 2:22 PM CDT documented as of this encounter Care Teams Brush Fabrication Supervisor Relationship Specialty Start Date End Date Edmundo Mendoza MD PCP - General Family Medicine 01/16/21 01/14/24 Magda Cifuentes DO 2 [facility] [address] [place] [address] PCP - General Family Medicine 01/16/24 Casa Alonzo MD #2 [facility] [address] [place] [address] Consulting Physician Colon and Rectal Surgery 09/03/23 documented as of this encounter
--- OUTSIDE RECORDS SUMMARY | 2025-03-10 13:13 | XMS_ITS | Encounter Summary ---
Author Organization [facility] Address [address] [place] [address] Phone Care Team Providers Care Cable Mock Up Assembler Name Role Phone Edmundo Mendoza MD Primary Care Provider [phone] Casa Alonzo MD Unavailable Magda Cifuentes DO Primary Care Provider Reason for Visit * Reason Comments Medication Refill Encounter Details Date Type Department Care Team (Late st Contact Info) Description 06/03/2023 Refill [facility] - Family Medicine [facility] [address] [place] [address] Edmundo Mendoza MD [address] [place] [address] Medication Refill Social History Tobacco Use Types [...] Telephone Encounter - Rylee Lujan RN - 06/04/2023 10:46 AM CST Rx . Should patient continue medication? Medication failed the protocol, provider to review and approve the medication order if appropriate. Requested Prescriptions Pending Prescriptions Disp Refills [facility] 290 MCG Capsule [Pharmacy Med Name: LINZ[facility] 290MCG CAPSULES] 30 Capsule 5 Sig: TAKE 1 CAPSULE BY MOUTH EVERY MORNING BEFORE BREAKFAST IBS-C/CIC Protocol Failed - 06/03/2023 4:30 PM Failed - Active on medication list Passed - Visit with relevant provider in past 12 months or upcoming 90 days Recent Visits Date Type Provider Dept 02/26/23 Office Visit Chidi Urias APRN, CNP [facility] 10/22/22 Office Visit Edmundo Mendoza MD [facility] 08/15/22 Telemedicine Chidi Urias APRN, CNP [facility] [place] Showing recent visits within past 365 days and meeting all other requirements Future Appointments No visits were found meeting these conditions. Showing future appointments within next 90 days and meeting all other requirements ICAL SERVICES TECH documented in this encounter Plan of Treatment Not on file documented as of this encounter Visit Diagnoses Diagnosis Irritable bowel syndrome with diarrhea Irritable bowel syndrome documented in this encounter Additional Health Concerns Assessment Noted Time PHQ-9 Depression Total Score: 0 02/27/20 23 2:22 PM CDT documented as of this encounter Care Teams Cable Mock Up Assembler Relationship Specialty Start Date End Date Edmundo Mendoza MD PCP - General Family Medicine 01/16/21 01/14/24 Magda Cifuentes DO 2 [facility] [address] [place] [address] PCP - General Family Medicine 01/16/24 Casa Alonzo MD #2 [facility] [address] [place] [address] Consulting Physician Colon and Rectal Surgery 09/03/23 documented as of this encounter
--- OUTSIDE RECORDS SUMMARY | 2025-03-10 13:13 | XMS_ITS | Encounter Summary ---
Author Organization [facility] Address [address] [place] [address] Phone Care Team Providers Care Sap Treasury Consultant Name Role Phone Edmundo Mendoza MD Primary Care Provider [phone] Casa Alonzo MD Unavailable Magda Cifuentes DO Primary Care Provider [phone] Reason for Visit * Reason Comments Medication Refill Encounter Details Date Type Department Care Team (Late st Contact Info) Description 05/01/2023 Refill [facility] - Family Medicine - [place] [address] [place] [address] Chidi Urias, PRICE CHANGER, MANAGER BRANCH #[address] [address] Medication Refill Social History Tobacco [...] Telephone Encounter - Rylee Lujan RN - 05/01/2023 12:18 PM CDT Medication failed the protocol, provider to review and approve the medication order if appropriate. Requested Prescriptions Pending Prescriptions Disp Refills fluconazole (DIFLUCAN) 150 MG Tablet [Pharmacy Med Name: FLUCONAZOLE 150MG TABLETS] 3 Tablet 0 Sig: Take 1 Tablet by mouth daily for 3 doses. Not Delegated - Off Protocol Failed - 05/01/2023 12:07 PM Failed - This refill cannot be delegated Failed - Active on medication list Passed - Visit with relevant provider in past 12 months or upcoming 90 days Recent Visits Date Type Provider Dept 02/26/23 Office Visit [facility]idi Urias APRN, [facility]NP [facility] [place] 10/22/22 Office Visit Edmundo Mendoza MD [facility] 08/15/22 Telemedicine Chidi Urias APRN, CNP [facility] [place] 05/08/22 Office Visit Edmundo Mendoza MD [facility] 05/01/22 Telemedicine Edwina Hunt APRN, [facility] Showing recent visits within past 365 days [...] documented as of this encounter Care Teams Sap Treasury Consultant Relationship Specialty Start Date End Date Edmundo Mendoza MD PCP - General Family Medicine 01/16/21 01/14/24 Magda Cifuentes DO [address] [address] PCP - General Family Medicine 01/16/24 Casa Alonzo MD #2 [place] [address] Consulting Physician Colon and Rectal Surgery 09/03/23 documented as of this encounter
--- OUTSIDE RECORDS SUMMARY | 2025-03-10 13:13 | XMS_ITS | Clinical Summary ---
Author Organization [facility] Address [address] [place] [address] Care Team Providers Care Adjunct Instructor Of Women'S Studies Name Role Phone Casa Alonzo MD Unavailable Magda Cifuentes DO Primary Care Provider [phone] Allergies Active Allergy Reactions Criticality Noted Date Comments Amlodipine Swelling Medium 06/27/2018 Losartan Swelling Medium 06/27/2018 Penicillins Hives High 07/06/2014 Sulfa Antibiotics Hives,Unknown High 04/02/2018 Medications albuterol 108 (90 Base) MCG/ACT Aerosol Solution take 2 Puffs by inhalation every 6 hours as needed. Active baclofen (LIORESAL) 20 MG TabletIndicatio ns:Spasticity Take 8 Tablets by mouth daily. 2 in the AM 2 in the Noon 4 at bedtime. 8 Active Cetirizine HCl 10 MG Capsule Take 1 Capsule by mouth. 5 Active gabapentin (NEURONTIN) 600 MG TabletIndicatio ns:Cervical neuropathy,Mult iple sclerosis (HCC) Take 600 mg by mouth 3 times daily. 9 Active Multiple Vitamins-Minera ls (Multi Vitamin/Mineral s) Tablet Take 1 Tablet by mouth. Active tiZANidine (ZANAFLEX) 2 MG TabletIndicatio ns:Spasticity Take 4 mg by mouth nightly. 8 Active Cholecalciferol 2000 UNIT Capsule daily. 7 Active Biotin 10 MG Capsule Take by mouth. Activ e naloxone HCl (Narcan) 4 MG/0.1ML Liquid Give one spray Q2-3 minutes until pt responds or medical assistance arrives 2 Each 2 2 Active modafinil (PROVIGIL) 100 MG Tablet Take 200 mg by mouth daily. Active Blood Glucose Monitoring Suppl DeviceIndicatio ns:Malabsorptio n of glucose Diagnosis: Diabetes type 2 Blood testing frequency: once a day E74.39 1 Each 4 Active Lancets MiscIndications :Malabsorption of glucose Use to check blood glucose daily. E74.39. 100 Lancet 11 4 Active fluticasone (FLONASE) 50 MCG/ACT Suspension SHAKE LIQUID AND USE 2 SPRAYS IN EACH NOSTRIL DAILY DIRECTED 48 g 3 4 Active simvastatin (ZOCOR) 20 MG Tablet Take 20 mg by mouth. 4 Active tirzepatide (Mounjaro) 7.5 MG/0.5ML Solution Pen-injector 7.5 mg by Subcutaneous route once a week. 1 mL 1 4 Active Glucose Blood StripIndication s:Malabsorption of glucose Use to check blood glucose daily. E74.39. 100 Strip 5 4 Active HYDROcodone-lluvia taminophen (NORCO) 10-325 MG TabletIndicatio ns:Multiple sclerosis (HCC),Cervical neuropathy Q8h prn severe pain 90 Tablet 5 Active LORazepam (Ativan) 2 MG TabletIndicatio ns:Anxiety associated with depression Take 1 Tablet by mouth nightly as needed for Anxiety. 30 Tablet 4 Active amitriptyline (ELAVIL) 10 MG TabletIndicatio ns:Insomnia due to medical condition TAKE 1 TABLET BY MOUTH EVERY NIGHT 30 Tablet 2 4 Active omeprazole (PriLOSEC) 40 MG CAPSULE DELAYED RELEASEIndicati ons:Gastroesoph ageal reflux disease, unspecified whether esophagitis present TAKE 1 CAPSULE BY MOUTH DAILY 90 Capsule 1 4 Active Linzess 290 MCG CapsuleIndicati ons:Irritable bowel syndrome with diarrhea TAKE 1 CAPSULE BY MOUTH EVERY MORNING BEFORE BREAKFAST 30 Capsule 5 5 Active Alcohol Swabs 70 % PadsIndications :Malabsorption of glucose USE TO CHECK BLOOD GLUCOSE DAILY 100 Each 3 5 Active Active Problems Problem Noted Date Diagnosed Date Major depressive disorder wi th single episode, in full remission 09/23/2023 Immunosuppression due to drug therapy 09/07/2022 Mixed anxiety and depressive disorder 09/07/2022 Urinary pain 01/25/2021 S/P bariatric surgery 11/18/2020 Vitamin D deficiency 12/01/2018 Spasticity 06/27/2018 Multiple sclerosis Encounters Date Type Department Care Team Description 01/19/2025 Refill [facility] [address] [place] [address] Chidi Urias, BANK RUNNER, TEST DESK OPERATOR Medication Refill from Last 3 Months Immunizations Immunization Administration Dates Next Due Covid-19, Mrna, Lnp-s, Pf, 3 0 Mcg/0.3 Ml Dose ([employer]) 09/22/2020,09/01/2020 Influenza Vaccine 06/19/2016 Influenza Vaccine, MDCK,quad rivalent, pres free 05/30/2018 Influenza Vaccine, Quadrivalent, PF 08/02/2022 Influenza Vaccine,unspecifie d Formulation 08/02/2022,03/15/2020,04/23/2019,2018,05/30/2018,06/19/2016,04/12/2015,1 07/10/2013,05/01/2013 Influenza, High-dose, Quadrivalent 04/12/2021 Influenza, Seasonal, Injecta ble, Undefined 04/23/2019,05/10/2014,05/01/2013 Influenza, high-dose, trivalent, PF 03/15/2020,1 Pneumococcal Vaccine Adult - 23 Valent 06/19/2016 TDAP Vaccine 06/19/2016 Family History Medical History Relation Name Comments Cancer Father Levy matthew Colon cancer Chronic Obstructive Pulmonary Disease Father Pito matthew Diabetes Father Levy matthew Hypertension Father Levy matthew Cancer Mother Carmen matthew cervical Chronic Obstructive Pulmonary Disease Mother Kellie matthew Hypertension Mother Carmen matthew Relation Name Status Comments Father Levy matthew Alive Mother Carmen matthew Alive Social History Tobacco Use Types Packs/Day Years Used Date Smoking Tobacco: Never Smokeless Tobacco: Never Tobacco Cessation:Counseling Given: No Alcohol Use Standard Drinks/Week Comments Not Currently 0 (1 standard drink = 0.6 oz pur e alcohol) [facility] Utilities Answer Date Recorded In the past 12 months has th e electric, gas, oil, or water company threatened [...] week 01/16/2024 How often do you attend sabianism or alevism serv ices? Never 01/16/2024 Do you belong to any clubs o r organizations such as sabianism groups, unions, fraternal or athletic groups, or [...] Total Score - Questions 1-9 0 01/30 [facility] - Occupational [...] place to sleep or slept in a usp (including now)? No 11/26/2023 Housing Stability Vital Sign Answer Valentin e Recorded In the last 12 months, was t here a time when you were not able to pay the mortgage or rent on time? No 01/16/2024 In the past 12 months, how m any times have you moved where you were living? 0 01/16/2024 At any time in the past 12 m [facility], were you homeless or living in a usp (including now)? No 01/16/2024 Education Answer Date [...] Sign Reading Time Taken Comments Blood Pressure 110/72 01/16/2024 10:06 AM CDT Pulse 79 01/16/2024 10:06 AM CDT Temperature 36.6 C (97.9 F) 01/16/2024 10:06 AM CDT Respiratory Rate 16 11/26/2023 11:28 AM CDT Oxygen Saturation 99% 01/16/2024 10:06 AM CDT Inhaled Oxygen Concentration - - Weight 85.7 kg (189 lb) 01/16/2024 10:06 AM CDT Height 172.7 cm (5' 8) 01/16/2024 10:06 AM CDT Body Mass Index 28.74 01/16/2024 10:06 AM CDT Plan of Treatment Health Maintenance Due Date Last Done Comments Cologuard 2021 Colonoscopy 2021 Colorectal Cancer Screening 2021 Immunochemical Fecal Occult Blood 2021 Hepatitis B Immunization (2 of 2 - CpG 2-dose series) 04/30/2024 04/02/2024 Mammogram 11/20/2024 11/21/2023, 11/29, 12/16/2020, Additional history exists Influenza Immunization (#1) 2025 02/0 08/2022, 08/02/2022, 04/12/2021, Additional history exists SARS-COV-2 Immunization (6 - Pfizer risk season) 2025 03/21/2024, 01/12/2022, 02/16/2021, Additional history exists Td Immunization Every 10 Years (Adults With 1 Tdap) 06/19/2026 06/19/2016 Respiratory Syncytial Virus (RSV) Immunization (Adult) (1 - 1-dose 75+ series) 2051 DTaP/Tdap/Td Immunization Discontinued 06/19/2016 Hepatitis C Virus (HCV) Screening Discontinued 10/17/2023 Pneumococcal Immunization Combined Completed 04/02/2024, 06/19/2016 Discussion re Starting/Frequency of Mammograms Completed 06/08/2024, 11/21/2023, 12/16/2020, Additional history exists Human Papillomavirus (HPV) Immunization Aged Out No longer eligible based on patient's age to complete this topic Meningococcal Immunization (ACWY) Aged Out No longer eligible based on patient's age to complete this topic Rotavirus Immunization Aged Out No lo nger eligible based on patient's age to complete this topic Procedures Procedure Name Priority Date/Time Associated Diagnosis Comments JUANA DIAG LEFT UNILATERAL DIGITAL W CAD W MATTHEW Routine 06/08/2024 10:48 AM AUTOMOTIVE LOT ATTENDANT Abnormal mammogram JUANA DIAG BILATERAL DIGITAL W CAD W MATTHEW Routine 11/21/2023 10:52 AM CDT Breast pain, right from Last 3 Months or Most Recently Relevant to Health Maintenance Results * JUANA DIAG LEFT UNILATERAL DIGITAL W CAD W MATTHEW (06/08/2024 10:48 AM AUTOMOTIVE LOT ATTENDANT) Anatomical Region Laterality Modality breast Left Mammography 06/08/2024 10:0 9 AM AUTOMOTIVE LOT ATTENDANT Narrative 06/08/2024 3:43 PM AUTOMOTIVE LOT ATTENDANT - JUANA DIAG LEFT UNILATERAL DIGITAL W CAD W MATTHEW UNILATERAL LEFT DIGITAL DIAGNOSTIC MAMMOGRAM 3D/2D WITH CAD WITH MEDIOLATERAL OBLIQUE CRANIOCAUDAL: 06/08/2024 The study was acquired using digital technology and interpreted from soft copy. Current study was also evaluated with MSDSonline.comD version 7.2. 2D digital mammographic views, as well as 3D digital tomosynthesis were performed in the CC and MLO projections. CLINICAL: Diagnostic study. Patient returns for a 6 month follow-up left breast. No personal history of cancer. Mother possibly had postmenopausal breast cancer. Paternal grandmother had breast cancer. COMPARISONS: Comparison is made to exams dated: 11/21/2023, 11/21/2023 [facility], and 12/16/2020 [facility]. BREAST TISSUE:There are scattered areas of fibroglandular density. FINDINGS: Previously identified focal asymmetry in the left breast is no longer seen. Postoperative change is stable. No new significant masses, calcifications, or other findings are seen in the breast. IMPRESSION: NEGATIVE There is no mammographic evidence of malignancy. Return to annual mammogram screening schedule is recommended. The results and recommendations were discussed with the patient. Electronically signed by: Cindi Hilton M.D. ab/:06/08/2024 10:41:33 Battery Test Engineer(s): RT John(R)(M), [facility] letter sent: Normal Exam Reading location: [facility] Mammogram BI-RADS: Category 1: Negative Procedure Note Cindi Hilton MD - 06/08/2024 - JUANA DIAG LEFT UNILATERAL DIGITAL W CAD W MATTHEW UNILATERAL LEFT DIGITAL DIAGNOSTIC MAMMOGRAM 3D/2D WITH CAD WITH MEDIOLATERAL OBLIQUE CRANIOCAUDAL: 06/08/2024 The study was acquired using digital technology and interpreted from soft copy. Current study was also evaluated with ICAD version 7.2. 2D digital mammographic views, as well as 3D digital tomosynthesis were performed in the CC and MLO projections. CLINICAL: Diagnostic study. Patient returns for a 6 month follow-up left breast. No personal history of cancer. Mother possibly had postmenopausal breast cancer. Paternal grandmother had breast cancer. COMPARISONS: Comparison is made to exams dated: 11/21/2023, 11/21/2023 [facility], and 12/16/2020 [facility]. BREAST TISSUE:There are scattered areas of fibroglandular density. FINDINGS: Previously identified focal asymmetry in the left breast is no longer seen. Postoperative change is stable. No new significant masses, calcifications, or other findings are seen in the breast. IMPRESSION: NEGATIVE There is no mammographic evidence of malignancy. Return to annual mammogram screening schedule is recommended. The results and recommendations were discussed with the patient. Electronically signed by: Cindi Hilton M.D. ab/:06/08/2024 10:41:33 Battery Test Engineer(s): RT John(R)(M), [facility] letter sent: Normal Exam Reading location: [facility] Mammogram BI-RADS: Category 1: Negative us Edwina Hunt BANK RUNNER, TEST DESK OPERATOR IMG MAMMO ORDERABLES Fin al Result * JUANA DIAG BILATERAL DIGITAL W CAD W MATTHEW (11/21/2023 10:52 AM CDT) Anatomical Region Laterality Modality breast Bilateral Mammography 11/21/2023 10:1 8 AM CDT Narrative 11/22/2023 11:53 AM CDT - JUANA DIAG BILATERAL DIGITAL W CAD W MATTHEW - [facility] US BREAST LIMITED LENNIE BILATERAL DIGITAL DIAGNOSTIC MAMMOGRAM 3D/2D WITH CAD WITH MEDIOLATERAL OBLIQUE CRANIOCAUDAL AND BILATERAL ULTRASOUND: 11/21/2023 The study was acquired using digital technology and interpreted from soft copy. Current study was also evaluated with ICAD version 7.2. 2D digital mammographic views, as well as 3D digital tomosynthesis were performed in the CC and MLO projections. CLINICAL: Diagnostic study. Patient reports intermittent medial right breast pain. Also reports sensitivity, discoloration superior to left areola, swelling, and a heavy sensation. No personal history of cancer. Mother possibly had postmenopausal breast cancer. Paternal grandmother had breast cancer. COMPARISONS: Comparison is made to exams dated: 12/16/2020 and 12/16/2020 [facility]. BREAST TISSUE:There are scattered fibroglandular densities in both breasts. FINDINGS: BILATERAL DIAGNOSTIC MAMMOGRAM: There is a subcentimeter mass at the 2 to 3 o'clock position of the left breast anteriorly. No other significant masses or calcifications are seen in either breast on the mammogram. No lesions are seen underlying the areas of concern in each breast. Further evaluation was obtained with sonography. TARGETED BILATERAL BREAST ULTRASOUND: No lesions are seen underlying the area of pain at the 2 o'clock position of the right breast, 5 cm from the nipple or area of discoloration at the 11-12 o'clock position of the left breast, 2 cm from the nipple. incidentally noted is a 2 mm cyst at the 11 o'clock position, 2 cm from the nipple. No lesions are seen to correspond to the mammographic lesion seen at the 2 to 3 o'clock position of the left breast. The mammographic lesion will be classified as probably benign. IMPRESSION: OVERALL STUDY BIRADS: 3 PROBABLY BENIGN Subcentimeter mass at the 2 to 3 o'clock position of the left breast anteriorly is probably benign. A follow-up mammogram in 6 months is recommended to demonstrate stability. No lesions are seen underlying the areas of concern in either breast. The results and recommendations were discussed with the patient. Electronically signed by: Jelani Quigley M.D. ll/:11/21/2023 11:41:03 Battery Test Engineer(s): RT Ivis(R)(M), [facility]; SMITA Lewis, [facility] letter sent: Birad 3 Followup Reading location: [facility] OVERALL STUDY BIRADS: 3 Probably benign Procedure Note Jelani Quigley MD - 11/22/2023 - JUANA DIAG BILATERAL DIGITAL W CAD W MATTHEW - JUANA US BREAST LIMITED LENNIE BILATERAL DIGITAL DIAGNOSTIC MAMMOGRAM 3D/2D WITH CAD WITH MEDIOLATERAL OBLIQUE CRANIOCAUDAL AND BILATERAL ULTRASOUND: 11/21/2023 The study was acquired using digital technology and interpreted from soft copy. Current study was also evaluated with ICAD version 7.2. 2D digital mammographic views, as well as 3D digital tomosynthesis were performed in the CC and MLO projections. CLINICAL: Diagnostic study. Patient reports intermittent medial right breast pain. Also reports sensitivity, discoloration superior to left areola, swelling, and a heavy sensation. No personal history of cancer. Mother possibly had postmenopausal breast cancer. Paternal grandmother had breast cancer. COMPARISONS: Comparison is made to exams dated: 12/16/2020 and 12/16/2020 [facility]. BREAST TISSUE:There are scattered fibroglandular densities in both breasts. FINDINGS: BILATERAL DIAGNOSTIC MAMMOGRAM: There is a subcentimeter mass at the 2 to 3 o'clock position of the left breast anteriorly. No other significant masses or calcifications are seen in either breast on the mammogram. No lesions are seen underlying the areas of concern in each breast. Further evaluation was obtained with sonography. TARGETED BILATERAL BREAST ULTRASOUND: No lesions are seen underlying the area of pain at the 2 o'clock position of the right breast, 5 cm from the nipple or area of discoloration at the 11-12 o'clock position of the left breast, 2 cm from the nipple. incidentally noted is a 2 mm cyst at the 11 o'clock position, 2 cm from the nipple. No lesions are seen to correspond to the mammographic lesion seen at the 2 to 3 o'clock position of the left breast. The mammographic lesion will be classified as probably benign. IMPRESSION: OVERALL STUDY BIRADS: 3 PROBABLY BENIGN Subcentimeter mass at the 2 to 3 o'clock position of the left breast anteriorly is probably benign. A follow-up mammogram in 6 months is recommended to demonstrate stability. No lesions are seen underlying the areas of concern in either breast. The results and recommendations were discussed with the patient. Electronically signed by: Jelani Quigley M.D. ll/:11/21/2023 11:41:03 Battery Test Engineer(s): Marie Stoll RT(R)(M), [facility]; SMITA Lewis, [facility] letter sent: Birad 3 Followup Reading location: [facility] OVERALL STUDY BIRADS: 3 Probably benign us Edwina Hunt BANK RUNNER, TEST DESK OPERATOR IMG MAMMO ORDERABLES Fin al Result from Last 3 Months or Most Recently Relevant to Health Maintenance Insurance [employer] on file MEDICA[place] [id number] MEDICARE C [employer] Care Teams Adjunct Instructor Of Women'S Studies Relationship Specialty Start Date End Date Magda Cifuentes DO 2 [facility]. [address] [place] [address] PCP - General Family Medicine 01/16/24 Casa Alonzo MD [address] [facility] [address] [place] [address] Consulting Physician Colon and Rectal Surgery 09/03/23
--- OUTSIDE RECORDS SUMMARY | 2025-03-10 13:13 | XMS_ITS | Encounter Summary ---
Author Organization [facility] Address [address] [place] [address] Phone Care Team Providers Care Keel Press Operator Name Role Phone Edmundo Mendoza MD Primary Care Provider [phone] Casa Alonzo MD Unavailable Magda Cifuentes DO Primary Care Provider [phone] Reason for Visit * Reason Comments Medication Refill Encounter Details Date Type Department Care Team (Late st Contact Info) Description 09/16/2023 Refill [facility] [address] [place] [address] Edmundo Mendoza MD [address] [place] [address] Medication Refill Social History Tobacco Use Types Packs/Day Years Used Date Smoking Tobacco: Never Smokeless Tobacco: Never Alcohol Use Standard Drinks/Week Comments Not Currently 0 (1 standard drink = 0.6 oz pur e alcohol) [facility] Utilities Answer Date Recorded In the past 12 months has [employer] electric, gas, oil, or water company threatened [...] often do you attend chur ch or baptism services? Patient declined 07/14/2023 Do you belong to any clubs o r organizations such as alevism groups, unions, fraternal or athletic groups, or [...] Total Score - Questions 1-9 0 01/30 [facility] - Occupational [...] place to sleep or slept in a fci (including now)? No 07/14/2023 Education Answer Date [...] documented as of this encounter Care Teams Keel Press Operator Relationship Specialty Start Date End Date Edmundo Mendoza MD PCP - General Family Medicine 01/16/21 01/14/24 Magda Cifuentes DO 2 [facility] [address] [place] [address] PCP - General Family Medicine 01/16/24 Cas[facility] MD [address] [facility] [address] [place] [address] Consulting Physician Colon and Rectal Surgery 09/03/23 documented as of this encounter
--- OUTSIDE RECORDS SUMMARY | 2025-03-10 13:13 | XMS_ITS | Clinical Summary ---
Author Organization [facility] al Address [address] [place] [address] Care Team Providers Care Maintenance Craftsman Name Role Phone Madhuri Esparza DPT Unavailable Reginald Lock MD Primary Care Provider [phone] Allergies Active Allergy Reactions Criticality Noted Date Comments Amlodipine Swelling Medium 06/27/2018 Losartan Swelling Medium 06/27/2018 Penicillins Hives Medium 07/06/2014 Sulfa (Sulfonamide Antibiotics) Hives Medium 11/29 Medications cyanocobalamin , vitamin B-12, 1,000 mcg tablet extended release daily. 07/24/19 17 Active cholecalcifero l (VITAMIN D-3) 2000 unit capsule daily. 07/24/19 17 Active PROAIR HFA 90 mcg/actuation inhaler INHALE 1 TO 2 PUFFS PO Q 4 HOURS PRF SHORTNESS OF BREATH 0 05/13/20 18 Active HYDROcodone-ac etaminophen (NORCO) 10-325 mg per tablet TK 1 T PO Q 4 H PRN P 0 12/05/19 19 Active biotin 10,000 mcg capsule Take by mouth Acti ve multivitamin with minerals tablet Take 1 tablet by mouth daily Active cetirizine 10 mg capsule Take 1 capsule by mouth 07/14/19 15 Active Stool Softener 100 mg capsule TAKE ONE CAPSULE BY MOUTH DAILY NEEDED FOR CONSTIPATION 01/20/20 21 Active nystatin powder Apply topically 3 (three) times a day as needed 01/26/20 21 Active riTUXimab (RITUXAN) 10 mg/mL injection Infuse into a venous catheter every 6 (six) months Active omeprazole (PriLOSEC) 40 mg capsule 02/17/20 21 Active buPROPion (WELLBUTRIN) 100 mg tablet Take 1 tablet (100 mg total) by mouth 2 (two) times a day 06/14/20 22 Active Linzess 145 mcg capsule 08/16/19 23 Active fluticasone propionate (FLONASE) 50 mcg/actuation nasal spray Administer 2 sprays into each nostril daily 04/03/20 23 Active naloxone (NARCAN) 4 mg/actuation spray,non-aero bryson Administer 1 spray into affected nostril(s) as needed for opioid reversal or respiratory depression Call 911. Administer a single spray in one nostril. Repeat every 3 minutes as needed if no or minimal response. 1 each 3 05/28/20 23 Active Mounjaro 5 mg/0.5 mL pen injector ADMINISTER 5 MG UNDER THE SKIN EVERY 7 DAYS 11/11/19 24 Active modafiniL (PROVIGIL) 100 mg tablet Take 1 tablet (100 mg total) by mouth 3 (three) times a day 270 tablet 3 01/14/20 24 Active simvastatin (ZOCOR) 20 mg tablet Take 1 tablet (20 mg total) by mouth daily 11/02/19 24 Active nitrofurantoin monohydrate (MACROBID) 100 mg capsule 10/29/19 24 Active LORazepam (ATIVAN) 2 mg tablet TAKE 1 AND 1/2 TABLETS BY MOUTH EVERY NIGHT NEEDED FOR ANXIETY 01/04/20 24 Active OneTouch Delica Plus Lancet 33 gauge misc daily 10/12/19 24 Active OneTouch Ultra Test strip CHECK BLOOD SUGAR THREE TIMES DAILY AND NEEDED FOR HYPOGLYCEMIC EPISODES 11/29/19 24 Active amitriptyline (ELAVIL) 10 mg tablet Take by mouth nightly 12/26/19 24 Active modafiniL (PROVIGIL) 100 mg tablet Take 1 tablet (100 mg total) by mouth 3 (three) times a day 270 tablet 3 01/23/20 24 Active gabapentin (NEURONTIN) 600 mg tablet Take 1 tablet (600 mg total) by mouth 3 (three) times a day 90 tablet 11 07/06/19 25 Active Linzess 290 mcg capsule Take 1 capsule (290 mcg total) by mouth daily before breakfast 12/25/19 25 Active baclofen (LIORESAL) 20 mg tablet TAKE 3 TABLETS BY MOUTH EVERY MORNING, 2 AND 1/2 TABLETS AT NOON AND 4 TABLETS AT BEDTIME 855 tablet 3 01/14/20 25 Active tiZANidine (ZANAFLEX) 2 mg tablet TAKE 1 TABLET(2 MG) BY MOUTH EVERY 8 HOURS NEEDED FOR MUSCLE SPASMS 270 tablet 1 02/13/20 25 Active tiZANidine (ZANAFLEX) 2 mg tablet Take 1 tablet (2 mg total) by mouth every 8 (eight) hours as needed for muscle spasms 270 tablet 1 08/18/19 25 025 Discontinued Active Problems Problem Noted Date Diagnosed Date Chronic fatigue disorder 01/07/2024 History of COVID-19 01/07/2024 Major depressive disorder wi th single episode, in full remission 09/23/2023 Immunosuppression due to drug therapy 09/07/2022 Medication monitoring encounter 09/07/2022 Mixed anxiety and depressive disorder 09/07/2022 Immunocompromised 03/14/2022 Urinary pain 01/25/2021 Abnormal MRI 01/17/2021 Vitamin D deficiency 01/17/2021 BMI 24.0-24.9, adult 12/21/2020 S/P bariatric surgery 11/18/2020 Morbid obesity with body mass index of 40.0-49.9 06/26/2019 Type 2 diabetes mellitus wit hout complication, without long-term current use of insulin 12/01/2018 Hyperlipidemia associated with type 2 diabetes m ellitus 12/01/2018 High risk medication use 06/27/2018 Abnormality of gait and mobility 06/27/2018 Balance disorder 06/27/2018 Falls frequently 06/27/2018 Spasticity 06/27/2018 Dysesthesia of multiple sites 06/27/2018 Essential hypertension 04/15/2018 Abnormal EKG 04/15/2018 Chest pain in adult 04/04/2018 Multiple sclerosis 11/13/2017 Hypertrophy of tonsils 09/26/2017 Verruca plana 12/20/2015 Benign neoplasm of skin of face 12/20/2015 Encounters Date Type Department Care Team Description 02/05/2025 Plan of Care Documentation [facility] [address] [place] [id number] 02/02/2025 Telephone [facility] [address] [place] [phone] Vivain Mahmood RPh 02/01/2025 2:00 PM CDT Therapy [facility] [address] [place] [phone] Julieth Figueredo, DPT Multiple sclerosis (HCC) (Primary Dx) 01/27/2025 Orders Only [facility] [address] [phone] Julieth Jha, DIRT BIKE MECHANIC Multiple sclerosis (HCC) (Primary Dx); Other chronic pain 01/08/2025 Results Follow-Up [facility] Multiple Sclerosis [address] [phone] Julieth Jha, DIRT BIKE MECHANIC MRI Cervical Spine W WO Contrast 01/07/2025 7:43 PM CDT - 01/07/2025 11:59 PM CDT Hospital Encounter [facility] [address] [place] [id number] Multiple sclerosis (HCC); Immunosuppression due to drug therapy; High risk medication use; Medication monitoring encounter; Abnormal MRI; Mixed anxiety and depressive disorder; Chronic fatigue disorder; Spasticity; Balance disorder; Abnormality of gait and mobility; History of COVID-19 Discharge Disposition: Discharge to home or self care 01/05/2025 11:00 AM CDT Office Visit [facility] Multiple S[facility] [address] [phone] John Mello MD PhD Multiple sclerosis (HCC) from Last 3 Months Immunizations Immunization Administration Dates Next Due Heplisav-b (Hepatitis B) 04/02/2024 Influenza, Quadrivalent, Hig h Dose, Preservative Free, Intrr 04/12/2021 Influenza, Quadrivalent, Spl it, Preservative Free, Intramuscular 08/02/2022 Influenza, Trivalent, Cell Culture-based MDCK, Preservative Free, Antibiotic Free, Intramuscular 05/30/2018 Influenza, Trivalent, High D ose, Split, Preservative Free, Intramuscular 03/15/2020,04/17/2019 Influenza, Trivalent, IM (MDV) 04/23/2019,2013,05/01/2013 Influenza, Trivalent, Preser vative Free, Intramuscular 03/28/2024,06/19/2016 Influenza, Unspecified 08/02/2022,2019,04/23/2019,04/17,05/30/2018,06/19/2016,04/12/2015 ,05/10/2014,05/10/2014,05/01/2013,11/07/2012 Pfizer SARS-CoV-2 Monovalent Vaccination (12+ Yrs) PURPLE 09/22/2020,09/01/2020 Pneumococcal Conjugate Pcv20 04/02/2024 Pneumococcal Polysaccharide PPV23 06/19/2016 Tdap 06/19/2016 Surgical History Surgery Date Site/Laterality Comments DE TOTAL ABDOMINAL HYSTERECT W/WO RMVL TUBE OVARY Hysterectomy - (Added by TW Conv) DE APPENDECTOMY Appendectomy - (Added by TW Conv) DE CHOLECYSTECTOMY Cholecystectomy - (Added by TW Conv) DE EXC CYST/ABERRANT BREAST TISSUE OPEN LESION Breast Surgery Lumpectomy - (Added by TW Conv) HYSTERECTOMY LAPAROSCOPIC GASTRIC BANDING sleeve 2019 BREAST BIOPSY 07/01/1997 - 06/30/1998 Left Benign Medical History Medical History Date Comments Personal history of other di seases of the respiratory system History of asthma - (Added b y TW Conv) Personal history of other di seases of the digestive system History of cholecystitis - ( Added by TW Conv) Gastric bypass status for obesity 06/26/2019 Asthma Family History Medical History Relation Name Comments Emphysema Mother Emphysema lung - (Added by TW Conv) Breast cancer Paternal Grandmother Relation Name Status Comments Mother Paternal Grandmother Social History Tobacco Use Types Packs/Day Years Used Date Smoking Tobacco: Never Smokeless Tobacco: Never Tobacco Cessation:Counseling Given: Not Answered Alcohol Use Standard Drinks/Week Comments No 0 [...] on file 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 Gender Identity Female 11/14/2020 9:16 AM CDT Sexual Orientation Not on file Occupation Industry Job Start Date Job End Date disabled Not on file Not on file Not on file Obstetrics History Para Term AB IAB SAB Ectopic Multiple Livin g Live Births 3 3 3 Date Outcome GA Total Labor Labor/2nd/3rd Weight Sex Type Anes PTL Monica A1 A5 Name Clin Term Term Term Last Filed Vital Signs Vital Sign Reading Time Taken Comments Blood Pressure 134/89 01/05/2025 10:59 AM CDT Pulse 64 01/05/2025 10:59 AM CDT Temperature 36.2 C (97.1 F) 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 Respiratory Rate 16 07/15/2024 1:44 PM 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 Oxygen Saturation 96% 07/15/2024 5:40 PM 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 Inhaled Oxygen Concentration - - Weight 83.9 kg (185 lb) 01/07/2025 7:49 PM CDT Height 172.7 cm (5' 8) 01/07/2025 7:49 PM CDT Body Mass Index 28.13 01/07/2025 7:49 PM CDT Plan of Treatment Health Maintenance Due Date Last Done Comments Albumin Creatinine Ratio, Urine 1976 Colon Cancer Screening-Colonoscopy 1976 Depression Screening 1976 Hemoglobin A1C 1976 Hepatitis C Screening 1976 Dilated Eye Exam 1976 Foot Exam 1976 Regular Well Visit/Exam 18-64 1994 Zoster Vaccine (1 of 2) 1995 Lipid Panel 10/16/2024 10/17/2023, 01/06/2017 Breast Cancer Screening-Mammogram 11/20/2024 11/21/2023, 11/21/2023, 12/16/2020, Additional history exists Covid-19 Vaccine (6 - Pfizer risk season) 2025 03/21/2024, 01/12/2022, 02/16/2021, Additional history exists Influenza Vaccine (#1) 2025 , 08/02/2022, 08/02/2022, Additional history exists eGFR 01/02/2026 01/02/2025, 04/01, 10/14/2023, Additional history exists DTaP/Tdap/Td Vaccine (2 - Td or Tdap) 06/19/2026 06/19/2016 Hepatitis B Screening Completed 04/02/2024 Pneumococcal vaccine <65 Completed 04/02/2024, 06/01 Procedures Procedure Name Priority Date/Time Associated Diagnosis Comments MRI MS BRAIN 3T PROTOCOL W WO CONTRAST Schedule Routine, Read Routine (OP Routine) 01/07/2025 9:11 PM CDT Multiple sclerosis (HCC) Immunosuppression due to drug therapy High risk medication use Medication monitoring encounter Abnormal MRI Mixed anxiety and depressive disorder Chronic fatigue disorder Spasticity Balance disorder Abnormality of gait and mobility History of COVID-19 MRI CERVICAL SPINE W WO CONTRAST Schedule Routine, Read Routine (OP Routine) 01/07/2025 9:11 PM CDT Multiple sclerosis (HCC) Immunosuppression due to drug therapy High risk medication use Medication monitoring encounter Abnormal MRI Mixed anxiety and depressive disorder Chronic fatigue disorder Spasticity Balance disorder Abnormality of gait and mobility History of COVID-19 COMPREHENSIVE METABOLIC PANEL Routine 01/02/2025 12:32 PM CDT Multiple sclerosis (HCC) Immunosuppression due to drug therapy High risk medication use Medication monitoring encounter Abnormal MRI Mixed anxiety and depressive disorder Chronic fatigue disorder Spasticity Balance disorder Abnormality of gait and mobility History of COVID-19 CBC WITH AUTO DIFFERENTIAL Routine 01/02/2025 12:32 PM CDT Multiple sclerosis (HCC) Immunosuppression due to drug therapy High risk medication use Medication monitoring encounter Abnormal MRI Mixed anxiety and depressive disorder Chronic fatigue disorder Spasticity Balance disorder Abnormality of gait and mobility History of COVID-19 IGM Routine 01/02/2025 12:32 PM CDT Multiple sclerosis (HCC) Immunosuppression due to drug therapy High risk medication use Medication monitoring encounter Abnormal MRI Mixed anxiety and depressive disorder Chronic fatigue disorder Spasticity Balance disorder Abnormality of gait and mobility History of COVID-19 IGA Routine 01/02/2025 12:32 PM CDT Multiple sclerosis (HCC) Immunosuppression due to drug therapy High risk medication use Medication monitoring encounter Abnormal MRI Mixed anxiety and depressive disorder Chronic fatigue disorder Spasticity Balance disorder Abnormality of gait and mobility History of COVID-19 IGG Routine 01/02/2025 12:32 PM CDT Multiple sclerosis (HCC) Immunosuppression due to drug therapy High risk medication use Medication monitoring encounter Abnormal MRI Mixed anxiety and depressive disorder Chronic fatigue disorder Spasticity Balance disorder Abnormality of gait and mobility History of COVID-19 LYMPHOCYTE SUBSET PANEL 2 Routine 01/02/2025 12:32 PM CDT Multiple sclerosis (HCC) Immunosuppression due to drug therapy High risk medication use Medication monitoring encounter Abnormal MRI Mixed anxiety and depressive disorder Chronic fatigue disorder Spasticity Balance disorder Abnormality of gait and mobility History of COVID-19 DIAGNOSTIC MAMMOGRAM BILATERAL W CARLOS ENRIQUE Routine 12/16/2020 2:56 PM CDT Mass of lower inner quadrant of right breast TNI WITH LIPID PANEL Routine 01/06/2017 7:35 PM CDT from Last 3 Months or Most Recently Relevant to Health Maintenance Results * MRI Cervical Spine W WO Contrast (01/07/2025 9:11 PM CDT) Anatomical Region Laterality Modality Spine N/A Magnetic Resonan ce 01/08/2025 12:0 5 PM CDT Impressions 01/08/2025 12:05 PM CDT Multiple unchanged intracranial and spinal white matter lesions. New T2 Lesions: None. Enhancing Lesions: None. Other significant findings: None. Electronically signed by: Travon Noel M.D. Narrative 01/08/2025 12:05 PM CDT EXAMINATION: 1. Magnetic resonance imaging (MRI) of the brain and brainstem without and with contrast 2. Magnetic resonance imaging (MRI) of the cervical spine without and with contrast HISTORY: Multiple sclerosis. Disease in the medication monitoring. TECHNIQUE: Multiplanar multi-weighted MRI of the brain, brainstem was performed without and with intravenous contrast using the multiple sclerosis protocol, which includes high resolution 3D T1-weighted, FLAIR, and T2*-weighted gradient echo images. Multiplanar multi-weighted MRI of the cervical spine was performed without and with intravenous contrast using the standard protocol. Scanner: [facility] Field Strength: 3T Contrast information: 17 mL Gadoterate Meglumine IV The post-contrast scan was performed approximately 5 minutes after IV contrast administration. COMPARISON: MRI brain 05/22/2023. MR cervical spine 04/04/2021. FINDINGS: BRAIN: On this baseline MRI examination, there are approximately of FLAIR/T2 hyperintense lesions. There are multiple foci of hyperintensity on FLAIR and T2-weighted images within the white matter compatible with demyelinating plaques of multiple sclerosis. This includes periventricular, callosal, cerebellar, and cortical or juxtacortical lesions. New Brain T2 Lesions: None. Enhancing Brain Lesions: None. T2/FLAIR [place] of Disease: Severe, more than 30 typical lesions or large confluent lesions Parenchymal Volume Loss: None. Central Vein Sign: Not a baseline scan at this institution Other Significant Findings: None. There appears to be mild asymmetric FLAIR hyperintensity involving the left optic nerve, which could be secondary to prior neuritis, retrospectively similar to prior exam. There is mild cerebellar tonsillar ectopia, measuring 3 mm below the level of foramen magnum, similar to prior exam. The scalp and calvarium are normal. The superior sagittal sinus demonstrates normal venous flow. The corpus callosum is normal in shape and signal intensity. The posterior fossa is unremarkable. The pituitary and sella are normal. The brainstem and craniocervical junction are unremarkable. Diffusion weighted images reveal no hyperintensities to suggest acute cerebral infarction. The susceptibility weighted sequences reveal no evidence of acute or chronic hemorrhage. The ventricles are normal in size and position without evidence of hydrocephalus. The paranasal sinuses are normal. The visualized portions of the mastoids are unremarkable. The orbits appear normal. Normal flow voids are demonstrated in the carotid arteries and basilar artery. CERVICAL SPINE: There are scattered a T2 hyperintense spinal cord lesion in the cervical spine, most prominently at C3, C4, and C5 levels, grossly similar to prior exam. New Spine T2 Lesions: None. Enhancing Spine Lesions: None. The alignment of the cervical spine is normal. Vertebral bodies demonstrate normal signal intensity on all sequences. No acute fracture is identified. The craniocervical junction is normal. The visualized portions of the skull base and the posterior fossa are normal. The spinal cord demonstrates normal signal intensity on all sequences. There is mild disc desiccation of the intervertebral discs, without substantial height loss. There are no annular fissures identified. No soft tissue abnormality is identified. Normal signal voids are present in the vertebral arteries. Procedure Note Travon Noel MD PhD - 01/08/2025 EXAMINATION: 1. Magnetic resonance imaging (MRI) of the brain and brainstem without and with contrast 2. Magnetic resonance imaging (MRI) of the cervical spine without and with contrast HISTORY: Multiple sclerosis. Disease in the medication monitoring. TECHNIQUE: Multiplanar multi-weighted MRI of the brain, brainstem was performed without and with intravenous contrast using the multiple sclerosis protocol, which includes high resolution 3D T1-weighted, FLAIR, and T2*-weighted gradient echo images. Multiplanar multi-weighted MRI of the cervical spine was performed without and with intravenous contrast using the standard protocol. Scanner: [facility] Field Strength: 3T Contrast information: 17 mL Gadoterate Meglumine IV The post-contrast scan was performed approximately 5 minutes after IV contrast administration. COMPARISON: MRI brain 05/22/2023. MR cervical spine 04/04/2021. FINDINGS: BRAIN: On this baseline MRI examination, there are approximately of FLAIR/T2 hyperintense lesions. There are multiple foci of hyperintensity on FLAIR and T2-weighted images within the white matter compatible with demyelinating plaques of multiple sclerosis. This includes periventricular, callosal, cerebellar, and cortical or juxtacortical lesions. New Brain T2 Lesions: None. Enhancing Brain Lesions: None. T2/FLAIR [place] of Disease: Severe, more than 30 typical lesions or large confluent lesions Parenchymal Volume Loss: None. Central Vein Sign: Not a baseline scan at this institution Other Significant Findings: None. There appears to be mild asymmetric FLAIR hyperintensity involving the left optic nerve, which could be secondary to prior neuritis, retrospectively similar to prior exam. There is mild cerebellar tonsillar ectopia, measuring 3 mm below the level of foramen magnum, similar to prior exam. The scalp and calvarium are normal. The superior sagittal sinus demonstrates normal venous flow. The corpus callosum is normal in shape and signal intensity. The posterior fossa is unremarkable. The pituitary and sella are normal. The brainstem and craniocervical junction are unremarkable. Diffusion weighted images reveal no hyperintensities to suggest acute cerebral infarction. The susceptibility weighted sequences reveal no evidence of acute or chronic hemorrhage. The ventricles are normal in size and position without evidence of hydrocephalus. The paranasal sinuses are normal. The visualized portions of the mastoids are unremarkable. The orbits appear normal. Normal flow voids are demonstrated in the carotid arteries and basilar artery. CERVICAL SPINE: There are scattered a T2 hyperintense spinal cord lesion in the cervical spine, most prominently at C3, C4, and C5 levels, grossly similar to prior exam. New Spine T2 Lesions: None. Enhancing Spine Lesions: None. The alignment of the cervical spine is normal. Vertebral bodies demonstrate normal signal intensity on all sequences. No acute fracture is identified. The craniocervical junction is normal. The visualized portions of the skull base and the posterior fossa are normal. The spinal cord demonstrates normal signal intensity on all sequences. There is mild disc desiccation of the intervertebral discs, without substantial height loss. There are no annular fissures identified. No soft tissue abnormality is identified. Normal signal voids are present in the vertebral arteries. IMPRESSION: Multiple unchanged intracranial and spinal white matter lesions. New T2 Lesions: None. Enhancing Lesions: None. Other significant findings: None. Electronically signed by: Travon Noel M.D. Julieth Jha DIRT BIKE MECHANIC IMG MRI PROCEDURES Final Resul t * MRI MS Brain 3T Protocol W WO Contrast (01/07/2025 9:11 PM CDT) Anatomical Region Laterality Modality Head and Neck N/A Magnetic Resonan ce 01/08/2025 12:0 5 PM CDT Impressions 01/08/2025 12:05 PM CDT Multiple unchanged intracranial and spinal white matter lesions. New T2 Lesions: None. Enhancing Lesions: None. Other significant findings: None. Electronically signed by: Travon Noel M.D. Narrative 01/08/2025 12:05 PM CDT EXAMINATION: 1. Magnetic resonance imaging (MRI) of the brain and brainstem without and with contrast 2. Magnetic resonance imaging (MRI) of the cervical spine without and with contrast HISTORY: Multiple sclerosis. Disease in the medication monitoring. TECHNIQUE: Multiplanar multi-weighted MRI of the brain, brainstem was performed without and with intravenous contrast using the multiple sclerosis protocol, which includes high resolution 3D T1-weighted, FLAIR, and T2*-weighted gradient echo images. Multiplanar multi-weighted MRI of the cervical spine was performed without and with intravenous contrast using the standard protocol. Scanner: [facility] Field Strength: 3T Contrast information: 17 mL Gadoterate Meglumine IV The post-contrast scan was performed approximately 5 minutes after IV contrast administration. COMPARISON: MRI brain 05/22/2023. MR cervical spine 04/04/2021. FINDINGS: BRAIN: On this baseline MRI examination, there are approximately of FLAIR/T2 hyperintense lesions. There are multiple foci of hyperintensity on FLAIR and T2-weighted images within the white matter compatible with demyelinating plaques of multiple sclerosis. This includes periventricular, callosal, cerebellar, and cortical or juxtacortical lesions. New Brain T2 Lesions: None. Enhancing Brain Lesions: None. T2/FLAIR [place] of Disease: Severe, more than 30 typical lesions or large confluent lesions Parenchymal Volume Loss: None. Central Vein Sign: Not a baseline scan at this institution Other Significant Findings: None. There appears to be mild asymmetric FLAIR hyperintensity involving the left optic nerve, which could be secondary to prior neuritis, retrospectively similar to prior exam. There is mild cerebellar tonsillar ectopia, measuring 3 mm below the level of foramen magnum, similar to prior exam. The scalp and calvarium are normal. The superior sagittal sinus demonstrates normal venous flow. The corpus callosum is normal in shape and signal intensity. The posterior fossa is unremarkable. The pituitary and sella are normal. The brainstem and craniocervical junction are unremarkable. Diffusion weighted images reveal no hyperintensities to suggest acute cerebral infarction. The susceptibility weighted sequences reveal no evidence of acute or chronic hemorrhage. The ventricles are normal in size and position without evidence of hydrocephalus. The paranasal sinuses are normal. The visualized portions of the mastoids are unremarkable. The orbits appear normal. Normal flow voids are demonstrated in the carotid arteries and basilar artery. CERVICAL SPINE: There are scattered a T2 hyperintense spinal cord lesion in the cervical spine, most prominently at C3, C4, and C5 levels, grossly similar to prior exam. New Spine T2 Lesions: None. Enhancing Spine Lesions: None. The alignment of the cervical spine is normal. Vertebral bodies demonstrate normal signal intensity on all sequences. No acute fracture is identified. The craniocervical junction is normal. The visualized portions of the skull base and the posterior fossa are normal. The spinal cord demonstrates normal signal intensity on all sequences. There is mild disc desiccation of the intervertebral discs, without substantial height loss. There are no annular fissures identified. No soft tissue abnormality is identified. Normal signal voids are present in the vertebral arteries. Procedure Note Travon Noel MD PhD - 01/08/2025 EXAMINATION: 1. Magnetic resonance imaging (MRI) of the brain and brainstem without and with contrast 2. Magnetic resonance imaging (MRI) of the cervical spine without and with contrast HISTORY: Multiple sclerosis. Disease in the medication monitoring. TECHNIQUE: Multiplanar multi-weighted MRI of the brain, brainstem was performed without and with intravenous contrast using the multiple sclerosis protocol, which includes high resolution 3D T1-weighted, FLAIR, and T2*-weighted gradient echo images. Multiplanar multi-weighted MRI of the cervical spine was performed without and with intravenous contrast using the standard protocol. Scanner: [facility] Field Strength: 3T Contrast information: 17 mL Gadoterate Meglumine IV The post-contrast scan was performed approximately 5 minutes after IV contrast administration. COMPARISON: MRI brain 05/22/2023. MR cervical spine 04/04/2021. FINDINGS: BRAIN: On this baseline MRI examination, there are approximately of FLAIR/T2 hyperintense lesions. There are multiple foci of hyperintensity on FLAIR and T2-weighted images within the white matter compatible with demyelinating plaques of multiple sclerosis. This includes periventricular, callosal, cerebellar, and cortical or juxtacortical lesions. New Brain T2 Lesions: None. Enhancing Brain Lesions: None. T2/FLAIR [place] of Disease: Severe, more than 30 typical lesions or large confluent lesions Parenchymal Volume Loss: None. Central Vein Sign: Not a baseline scan at this institution Other Significant Findings: None. There appears to be mild asymmetric FLAIR hyperintensity involving the left optic nerve, which could be secondary to prior neuritis, retrospectively similar to prior exam. There is mild cerebellar tonsillar ectopia, measuring 3 mm below the level of foramen magnum, similar to prior exam. The scalp and calvarium are normal. The superior sagittal sinus demonstrates normal venous flow. The corpus callosum is normal in shape and signal intensity. The posterior fossa is unremarkable. The pituitary and sella are normal. The brainstem and craniocervical junction are unremarkable. Diffusion weighted images reveal no hyperintensities to suggest acute cerebral infarction. The susceptibility weighted sequences reveal no evidence of acute or chronic hemorrhage. The ventricles are normal in size and position without evidence of hydrocephalus. The paranasal sinuses are normal. The visualized portions of the mastoids are unremarkable. The orbits appear normal. Normal flow voids are demonstrated in the carotid arteries and basilar artery. CERVICAL SPINE: There are scattered a T2 hyperintense spinal cord lesion in the cervical spine, most prominently at C3, C4, and C5 levels, grossly similar to prior exam. New Spine T2 Lesions: None. Enhancing Spine Lesions: None. The alignment of the cervical spine is normal. Vertebral bodies demonstrate normal signal intensity on all sequences. No acute fracture is identified. The craniocervical junction is normal. The visualized portions of the skull base and the posterior fossa are normal. The spinal cord demonstrates normal signal intensity on all sequences. There is mild disc desiccation of the intervertebral discs, without substantial height loss. There are no annular fissures identified. No soft tissue abnormality is identified. Normal signal voids are present in the vertebral arteries. IMPRESSION: Multiple unchanged intracranial and spinal white matter lesions. New T2 Lesions: None. Enhancing Lesions: None. Other significant findings: None. Electronically signed by: Travon Noel M.D. Julieth Jha [employer] IMG MRI PROCEDURES Final Resul t * (ABNORMAL) Lymphocyte subset panel 2 (01/02/2025 12:32 PM CDT) % CD3 79 57 - 85 % [facility] Absolute CD3+ cells 1,193 840 - 3,060 cells/uL [facility] CD4 % 71(H) 30 - 61 % [facility] CD4 cells 1,038 490 - 1,740 cells/uL [facility] % CD8 8(L) 12 - 42 % [facility] Absolute CD8+ cells 116(L) 180 - 1,170 cells/uL [facility] Chester/Suppres sor ratio 8.94(H) 0.86 - 5.00 [facility] CD19 pct 6 - 29 % [facility] Comment:LESS THAN 1 Absolute CD19+ CELLS <20(L) 110 - 660 cells/uL [facility] Lymphocytes, abs 1,501 850 - 3,900 cells/uL [facility] Blood 01/02/2025 12:3 2 PM CDT 01/02/2025 12:32 PM CDT Julieth Jha [employer] LAB BLOOD ORDERABLES Final Res ult [facility] [address] [place] [address] * (ABNORMAL) CBC with auto differential (01/02/2025 12:32 PM CDT) WBC 8.1 3.8 - 10.8 Thousand/u L [facility] RBC, POC 4.75 3.80 - 5.10 Million/uL [facility] Hgb 14.7 11.7 - 15.5 g/dL [facility] Hct 45.9(H) 35.0 - 45.0 % [facility] MCV 96.6 80.0 - 100.0 fL [facility] MCH 30.9 27.0 - 33.0 pg [facility] MCHC 32.0 32.0 - 36.0 g/dL [facility] Comment: For adults, a slight decrease in the calculated MCHC value (in the range of 30 to 32 g/dL) is most likely not clinically significant; however, it should be interpreted with caution in correlation with other red cell parameters and the patient's clinical condition. Rdw 12.4 11.0 - 15.0 % [facility] Platelets 276 140 - 400 Thousand/u L [facility] MPV 10.5 7.5 - 12.5 fL [facility] Neutrophils, abs 5,945 1,500 - 7,800 cells/uL [facility] Lymphocytes, abs 1,490 850 - 3,900 cells/uL [facility] Monocyte abs 559 200 - 950 cells/uL [facility] Eosinophils, abs 73 15 - 500 cells/uL [facility] Basophils, abs 32 0 - 200 cells/uL [facility] Neutrophils 73.4 % [facility] Lymphocyte pct 18.4 % [facility] Monocytes 6.9 % [facility] Eosinophils 0.9 % [facility] Basophils 0.4 % [facility] Blood 01/02/2025 12:3 2 PM CDT 01/02/2025 12:32 PM CDT Julieth Jha [employer] LAB BLOOD ORDERABLES Final Res ult Performing Organization Address City/[facility]/ZIP Co de Phone Number [facility] [address] [place] [address] * IgA (01/02/2025 12:32 PM CDT) Immunoglobulin A 204 47 - 310 mg/dL [facility] Blood 01/02/2025 12:3 2 PM CDT 01/02/2025 12:32 PM CDT Julieth Jha [employer] LAB BLOOD ORDERABLES Final Res ult Performing Organization Address City/[facility]/ZIP Co de Phone Number [facility] [address] [place] [address] * IgM (01/02/2025 12:32 PM CDT) Immunoglobulin M 66 50 - 300 mg/dL [facility] Blood 01/02/2025 12:3 2 PM CDT 01/02/2025 12:32 PM CDT Julieth Jha [employer] LAB BLOOD ORDERABLES Final Res ult Performing Organization Address City/[facility]/ZIP Co de Phone Number [facility] [address] [place] [address] * IgG (01/02/2025 12:32 PM CDT) Immunoglobulin G 861 600 - 1,640 mg/dL [facility] Blood 01/02/2025 12:3 2 PM CDT 01/02/2025 12:32 PM CDT Julieth Jha [employer] LAB BLOOD ORDERABLES Final Res ult [facility] [address] [place] [address] * Comprehensive metabolic panel (01/02/2025 12:32 PM CDT) Pathologist [facility] Glucose 87 65 - 99 mg/dL [facility] Comment: Fasting reference interval BUN 7 7 - 25 mg/dL [facility] Creatinine 0.60 0.50 - 0.99 mg/dL [facility] eGFR 111 > OR = 60 mL/min/1.7 3m2 [facility] BUN/creat ratio SEE NOTE: 6 - 22 (calc) [facility] Comment: Not Reported: BUN and Creatinine are within reference range. Sodium 139 135 - 146 mmol/L [facility] Potassium, pl 4.4 3.5 - 5.3 mmol/L [facility] Chloride 104 98 - 110 mmol/L [facility] CO2 28 20 - 32 mmol/L [facility] Calcium 9.4 8.6 - 10.2 mg/dL [facility] Protein, sr 6.5 6.1 - 8.1 g/dL [facility] Albumin 4.0 3.6 - 5.1 g/dL [facility] GLOBULIN 2.5 1.9 - 3.7 g/dL (calc) [facility] Alb/glob ratio 1.6 1.0 - 2.5 (calc) [facility] Bilirubin, total 0.4 0.2 - 1.2 mg/dL [facility] Alk phos 44 31 - 125 U/L [facility] AST 18 10 - 35 U/L [facility] ALT (SGPT) 13 6 - 29 U/L [facility] Blood 01/02/2025 12:3 2 PM CDT 01/02/2025 12:32 PM CDT Julieth Jha [employer] LAB BLOOD ORDERABLES Final Res ult [facility] [address] [place] [address] * Diagnostic Mammogram Bilateral W Carlos Enrique (12/16/2020 2:56 PM CDT) Anatomical Region Laterality Modality Breast Bilateral Mammography 12/16/2020 3:23 PM CDT Narrative 12/16/2020 3:25 PM CDT EXAM DESCRIPTION: DIAGNOSTIC MAMMOGRAM BILATERAL W CARLOS ENRIQUE; US BREAST RIGHT LIMITED REASON FOR STUDY: 45-year-old woman comes in today for evaluation of palpable lumps in the right breast, and routine screening of the left breast. COMPARISON: Mammogram dated 06/12/2017. TECHNIQUE: CC and MLO digital breast tomosynthesis of both breasts with C view was performed. Targeted sonographic examination of the right breast was also performed with real-time grayscale images and color Doppler. FINDINGS: MAMMOGRAPHIC FINDINGS: DENSITY: There are scattered areas of fibroglandular density. BREASTS: Metallic BB markers were placed on the right breast at the level of the palpable abnormality of concern, corresponding to approximately the 3 o'clock and 4 o'clock positions middle depth. There are no new suspicious findings in the vicinity of the markers. Overall, no new suspicious finding is identified in the right breast on mammogram. Unchanged intramammary lymph node is noted in the upper outer right breast. There is also no new suspicious finding in the left breast on mammogram. Stable postoperative changes in the left breast. Targeted sonographic examination of the right breast will be performed. ULTRASOUND FINDINGS: Sonographic examination of the right breast is performed at the 3 o'clock position 12 cm from the nipple, and at the 4 o'clock position 7 cm from the nipple, corresponding to the areas of palpable concern. Only benign fibroglandular are tissue is identified at this level. There are no suspicious solid or cystic masses. IMPRESSION: 1. There is no mammographic or sonographic correlate for the reported palpable lumps of concern in the right breast at the 4 o'clock and 3 o'clock positions. Continued physical examination is recommended. Any further management at this time should be based on clinical assessment. 2. No new suspicious findings are identified in either breast on mammogram. Annual bilateral screening mammogram recommended in 12 months. BIRADS: 2 - Benign I discussed the findings and recommendations with the patient at the time of the examination. THIS IS AN ELECTRONICALLY VERIFIED FINAL REPORT 12/16/2020 3:25 PM - Electronically signed by Leroy Morrison M.D. RL: BULMARO Report ID: [id number] Reading Location: [place] [address] Wayne Jaquez DO [facility] [place]ED[place] Final Result * (ABNORMAL) TNI with LIPID PANEL (01/06/2017 7:35 PM CDT) Troponin I < 0.300 0.000 - 0.300 ng/mL 01/06/2017 8:15 PM [facility] [employer] HISTORICAL RESULTS Comment: Reference using YEN Chemiluminescence Negative: Repeat in 4-6 hours as indicated. Triglycerides 251(H) 0 - 199 mg/dL 01/06/2017 8:18 PM T [employer] HISTORICAL RESULTS Comment: LDL (measured) to follow due to Triglycerides >250 mg/dL 12 hr pc highly recommended for Triglyceride Cholesterol 224(H) 0 - 199 mg/dL 01/06/2017 8:18 PM [facility] [employer] HISTORICAL RESULTS Comment: Borderline: 200-239 High Risk: >239 HDL Cholesterol 47 40 - 60 mg/dL 01/06/2017 8:18 PM [employer] [employer] HISTORICAL RESULTS Comment: Major Risk < 40 mg/dL Moderate Risk 40-60 mg/dL Negative Risk > 60 mg/dL Cholesterol/HDL Ratio 4.8 01/06/2017 8:18 PM CDT [employer] HISTORICAL RESULTS Comment: Cholesterol / HDL Ratio 3.5:1 or less is desirable. Cholesterol / HDL Ratio greater than 5:1 is considered higher risk for developing heart disease. 01/06/2017 7:35 PM CDT 01/06/2017 7:45 PM CDT Aicha Knight LAB BLOOD ORDERABLES Aura l Result [facility] HISTORICAL RESULTS from Last 3 Months or Most Recently Relevant to Health Maintenance Insurance [facility] MEDICARE ADVANTAGE MEDICARE [place] MEDICARE IDPA [facility] [place] [address] Care Teams Maintenance Craftsman Relationship Specialty Start Date End Date Reginald Lock MD [address] [place], [place] [id number] PCP - General Family Practice 08/26/24 Madhuri Esparza DPT [address] [address] Physical Therapist Physical Therapy 11/16/20
--- OUTSIDE RECORDS SUMMARY | 2025-03-10 13:13 | XMS_ITS | Encounter Summary ---
Author Organization [facility] Address [address] [place] [address] Phone Care Team Providers Care Publishing Director Name Role Phone Edmundo Mendoza MD Primary Care Provider [phone] Casa Alonzo MD Unavailable Magda Cifuentes DO Primary Care Provider [phone] Reason for Visit * Reason Comments Medication Refill Encounter Details Date Type Department Care Team (Late st Contact Info) Description 11/04/2023 Refill [facility] - Family Medicine [facility] [address] [place] [address] Edmundo Mendoza MD [address] [place] [address] Medication Refill Social History Tobacco Use Types Packs/Day Years Used Date Smoking Tobacco: Never Smokeless Tobacco: Never Alcohol Use Standard Drinks/Week Comments Not Currently 0 (1 standard drink = 0.6 oz pur e alcohol) [facility] Utilities Answer Date Recorded In the past 12 months has [employer] electric, gas, oil, or water company threatened [...] often do you attend chur ch or hinduism services? Patient declined 07/14/2023 Do you belong to any clubs o r organizations such as caodaism groups, unions, fraternal or athletic groups, or [...] Total Score - Questions 1-9 0 01/30 [facility] - Occupational [...] place to sleep or slept in a mcfp (including now)? No 07/14/2023 Education Answer Date [...] Telephone Encounter - Rylee Lujan RN - 11/05/2023 8:51 AM CDT Name from pharmacy: LORAZEPAM 2MG TABLETS Will file in chart as: LORazepam (ATIVAN) 2 MG Tablet The original prescription was reordered on 11/05/2023 by Edmundo Mendoza MD. documented in this encounter Plan of Treatment Not on file documented as of this encounter Visit Diagnoses Diagnosis Anxiety associated with depression Dysthymic disorder documented in this encounter Additional Health Concerns Assessment Noted Time PHQ-9 Depression Total Score: 0 02/27/20 23 2:22 PM CDT documented as of this encounter Care Teams Publishing Director Relationship Specialty Start Date End Date Edmundo Mendoza MD PCP - General Family Medicine 01/16/21 01/14/24 Magda Cifuentes DO [address] [place] [address] PCP - General Family Medicine 01/16/24 Casa Alonzo MD [address] [address] Consulting Physician Colon and Rectal Surgery 09/03/23 documented as of this encounter
--- OUTSIDE RECORDS SUMMARY | 2025-03-10 13:13 | XMS_ITS | Encounter Summary ---
Author Organization [facility] Address [address] [place] [address] Phone Care Team Providers Care Financial Health Counselor Name Role Phone Edmundo Mendoza MD Primary Care Provider [phone] Casa Alonzo MD Unavailable Magda Cifuentes DO Primary Care Provider [phone] Reason for Visit * Reason Comments Medication Refill Encounter Details Date Type Department Care Team (Late st Contact Info) Description 07/26/2023 Refill [facility] - Family Medicine [facility] [address] [place] [address] Edmundo Mendoza MD [address] [place] [address] Medication Refill Social History Tobacco Use Types Packs/Day Years Used Date Smoking Tobacco: Never Smokeless Tobacco: Never Alcohol Use Standard Drinks/Week Comments Not Currently 0 (1 standard drink = 0.6 oz pur e alcohol) [facility] Utilities Answer Date Recorded In the past 12 months has [employer] electric, gas, oil, or water company threatened [...] often do you attend chur ch or yazidism services? Patient declined 07/14/2023 Do you belong [...] Total Score - Questions 1-9 0 01/30 [facility] - Occupational [...] No 07/14/2023 Housing Stability Vital Sign Answer Valetnin e Recorded In the last 12 months, [...] place to sleep or slept in a detention (including now)? 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 Requested Prescriptions Pending Prescriptions Disp Refills fluconazole (DIFLUCAN) 150 MG Tablet [Pharmacy Med Name: FLUCONAZOLE 150MG TABLETS] 3 Tablet 0 Sig: TAKE 1 TABLET BY MOUTH DAILY FOR 3 DOSES Not Delegated - Off Protocol Failed - 07/26/2023 8:28 PM Failed - This refill cannot be delegated Failed - Active on medication list Passed - Visit with relevant provider in past 12 months or upcoming 90 days Recent Visits Date Type Provider Dept 07/15/23 Office Visit Chidi Urias APRN, [facility] 02/26/23 Office Visit Chidi Urias APRN, [facility] 10/22/22 Office Visit Edmundo Mendoza MD [facility] 08/15/22 Telemedicine Chidi Urias APRN, [facility] Showing recent visits within past 365 days and meeting all other requirements Future Appointments No visits were found meeting these conditions. Showing future appointments within next 90 days and meeting all other requirements ENTARY CLASSROOM TEACHER documented in this encounter Plan of Treatment Not on file documented as of this encounter Visit Diagnoses Diagnosis Thrush Candidiasis of mouth documented in this encounter Additional Health Concerns Assessment Noted Time PHQ-9 Depression Total Score: 0 02/27/20 23 2:22 PM CDT documented as of this encounter Care Teams Financial Health Counselor Relationship Specialty Start Date End Date Edmundo Mendoza MD PCP - General Family Medicine 01/16/21 01/14/24 Magda Cifuentes DO 2 [facility] [address] [place] [address] PCP - General Family Medicine 01/16/24 Casa Alonzo MD [address] [address] Consulting Physician Colon and Rectal Surgery 09/03/23 documented as of this encounter
[2025-03-10 13:52] LABS: Influenza A QL RT-PCR Negative (Negative); Influenza B QL RT-PCR Negative (Negative); RSV RNA, RT-PCR Negative (Negative); SARS-CoV-2 RNA PCR Negative (Negative)
== END 2025-03-10 12:45 | disposition home or self-care (01) ==
PROVIDERS: PCP Family Medicine; Visit Provider Nurse Practitioner Family
DX: R06.02 Shortness of breath (principal); R05.9 Cough, unspecified; Z20.822 Contact with and (suspected) exposure to COVID-19
CPT/HCPCS: 71046; 87637

== ENCOUNTER 2025-05-15 14:08 | Emergency (ER) | payer MEDICARE, MEDICAID, SELFPAY ==
[2025-05-15 14:16] VITALS: BP 132/85; PULSE 63; RESP 16; TEMP 36.9; O2SAT 100
--- NOTE | 2025-05-15 14:20 | ED.URI ---
HPI - URI/Sore Throat General Chief Complaint: Upper Respiratory Infection Stated Complaint: tested positive for covid patient presents to the [facility] with request for medications for COVID. Patient reports symptoms started 3 days ago and she did not home test for COVID which was positive. Patient does report a history of MS and her neurologist has told her if she did get COVID she should be on the antiviral medications to ensure she does not get significant COVID. Patient spoke with primary care office yesterday was told she could not have Paxlovid due to her current medications and was sent in a different antiviral which was not covered by insurance and would cost her 1200 dollars which patient could not afford. Patient is coming to the [facility] to get another type of medication to help with symptoms. Denies fever, dizziness, nausea, vomiting, diarrhea. Related Data Home Medications ?Medication ?Instructions ?Recorded ?Confirmed ?Last Taken ?Type tizanidine 4 mg tablet 6 mg PO HS 05/10/19 03/10/25 04/19/24 History baclofen 20 mg tablet 40 mg PO BID 12/28/20 03/10/25 04/20/24 History gabapentin 600 mg tablet 600 mg PO TID 03/25/23 03/10/25 04/20/24 History ofatumumab 20 mg/0.4 mL 20 mg subcut WEEKLY 02/25/25 03/10/25 Unknown History subcutaneous pen injector (Kesimpta Pen) linaclotide 290 mcg capsule mcg 05/15/25 Unknown History (Linzess) Allergies Allergy/AdvReac Type Severity Reaction Status Date / Time Penicillins Allergy Mild Hives Verified 05/15/25 14:10 Sulfa (Sulfonamide Allergy Mild Hives Verified 05/15/25 14:10 Antibiotics) Review of Systems Constitutional: Constitutional: Reports as per HPI, Denies chills, Reports fatigue, Denies fever(s) and Reports weakness Eyes: Eyes: Reports no additional eye complaints ENT: Reports as per HPI, Denies vertigo, Denies dizziness, Reports nasal congestion and Reports sore throat Cardiovascular: Cardiovascular: Reports no additional cardiovascular complaints Respiratory: Respiratory: Reports as per HPI, Reports chest congestion, Reports cough, Reports dyspnea and Denies wheezing Gastrointestinal: Gastrointestinal: Reports as per HPI, Denies abdominal pain, Denies diarrhea, Denies nausea and Denies vomiting Genitourinary: Genitourinary: Reports no additional female genitourinary complaints Musculoskeletal: Musculoskeletal: Reports as per HPI, Reports back pain and Reports myalgias Integumentary/Breasts: Skin/Breast: Reports as per HPI, Denies erythema and Denies rash Neurologic: Reports as per HPI, Denies vertigo, Denies dizziness, Reports headache(s) and Reports weakness Psychiatric: Psychiatric: Reports no additional psychiatric complaints Endocrine: Endocrine: Reports no additional endocrine complaints Hematologic/Lymphatic: Hematologic/Lymphatic: Reports no additional hematologic/lymphatic complaints Allergic/Immunologic: Allergic/Immunologic: Reports no additional allergic/immunologic complaints [facility] Past Medical History Medical History Irritable bowel syndrome Hyperlipidemia Heart disease GERD (gastroesophageal reflux disease) Diabetes Asthma Anxiety Hypertension Multiple sclerosis Surgical History Surgical History History of partial hysterectomy History of appendectomy Family History Family History Mother Asthma Cancer Hypertension Father Cancer Depression Heart disease Alcoholism Sibling Cancer Grandparent Cancer Social History Social History Smoking status: Never smoker Second hand tobacco smoke exposure: No Alcohol intake: never Substance use: never Substance use type: does not use Do You Feel Safe in your Home?: Yes Lack of Transportation: No Lack of Food: Never True Current Housing: I Have Housing Concerned About Future Housing: No Difficulty Paying Gas/Electric Bills: No Difficulty Paying for Meds: No Currently Unemployed: No Education: High School Diploma/GED Difficulty w/ Childcare or Family Care: No Living arrangements: alone Gender identity (if verbalized by the patient): Female Sexual Orientation (if Verbalized by the Patient): Straight or Heterosexual Spiritual care concerns: No Exam Const: General: no acute distress and ill appearing Nutritional Appearance: well nourished Orientation/consciousness: patient oriented x3 Limitations: no limitations Other: obviously fatigued HENMT: Head: normal to inspection Ears: external ears normal and TM's normal bilaterally Face/Nose/Sinus: Normal external nose present, Normal nares present and Nasal discharge present Face and sinus: normal facial exam and sinuses nontender Mouth: Yes Normal oral and palatal mucosa present, Yes lip normal and Yes moist mucous membranes Throat: posterior oropharynx normal Neck: Neck: normal visual inspection and no lymphadenopathy Resp: Effort & Inspection: normal respiratory effort Auscultation: no crackles, no rales, no rhonchi, no wheezes and diminished lung sounds Other: Congested cough noted Cardio: Rate: regular rate Rhythm: regular rhythm Skin: General skin exam: normal color Rashes: no rashes Wounds: no wounds Neuro: General: patient oriented x3 Speech: normal speech Gait exam (Neuro): Normal gait present Psych: Mental Status: mental status grossly normal Affect: normal affect Attitude: cooperative Course Course Level of Care: Express Care Visit Vital Signs Vital signs: Vital Signs Temperature 98.4 F 05/15/25 14:16 Pulse Rate 63 05/15/25 14:16 Respiratory Rate 16 05/15/25 14:16 Blood Pressure 132/85 05/15/25 14:16 Pulse Oximetry 100 05/15/25 14:16 Oxygen Delivery Room Air 05/15/25 14:16 Temperature 98.4 F 05/15/25 14:16 Pulse Rate 63 05/15/25 14:16 Respiratory Rate 16 05/15/25 14:16 Blood Pressure 132/85 05/15/25 14:16 Pulse Oximetry 100 05/15/25 14:16 Oxygen Delivery Room Air 05/15/25 14:16 MDM - URI/Sore Throat MDM Narrative Medical decision making narrative: Reviewed patient medications and spoke with patient about interactions noted she will stop the simvastatin for 7 days while on the Paxlovid and noted she has not taken the tirzepetide in the last 3 weeks. The patient was evaluated by myself in the [facility] care. History is obtained from patient who is an independent historian and physical exam was performed. Available medical records were reviewed at this time. Exam findings show no acute concerns or changes; patient is non-toxic appearing and is in no distress. Patient is appropriate for outpatient treatment and follow-up. I have evaluated and discussed social determinants of health with the patient that could potentially impact subsequent diagnosis and treatment plans. Differential diagnosis and treatment plan were discussed with the patient. Patient agrees with discussion and after shared medical decision making agrees with plan of care. All questions were answered to the patient's satisfaction. Differential Diagnosis Differential diagnosis: Likely upper respiratory infection, croup, otitis media, sinusitis, viral infection, bronchitis, influenza and pharyngitis Medical Records Attestation: I reviewed the patient's medical records. Discharge Plan Discharge Clinical Impression: COVID Patient Disposition: Home Condition: Stable Instructions: Antibiotic Form, COVID-19 (Coronavirus Disease 2019) (ED), COVID-19 and Chronic Health Conditions (ED) Additional Instructions: COVID-19 DISCHARGE The following recommendations have been made by the CDC and local Health Departments, regarding COVID-19: If You Test Positive for COVID-19 (Isolate) Everyone, regardless of vaccination status. Stay home for 5 days. If you have no symptoms or your symptoms are resolving after 5 days, you can leave your house. Continue to wear a mask around others for 5 additional days. If you have a fever, continue to stay home until your fever resolves. Those individuals with mild cases of COVID-19 can generally be discontinued from isolation, 10 days AFTER the onset of symptoms AND the resolution of fever for 24hrs (without the use of fever-reducing medications) Those individuals who were asymptomatic, and tested positive, are discontinued from isolation 10 days AFTER their first positive COVID-19 test Those individuals with SEVERE to CRITICAL illness or immunocompromised diseases may require up to 20 days of home isolation or hospitalization Majority of mild to moderate cases can be treated at home, without hospitalization or prescription medications You do not need a negative test result to return to work/school, assuming the above recommendations have been met and you are not symptomatic. At this time, return to work/school notes will not be provided. Guidelines from the local Health Department, CDC, and workplace are expected to be followed. All individuals in the household need to remained quarantined for up to 14 days if asymptomatic OR 10 days after the start of symptoms. Everyone in the home DOES NOT require testing, they are presumed positive and should quarantine as directed. Treating symptoms for mild to moderate cases may include: Tylenol, Flonase/nasal spray, OTC cold/flu medications recommended from your provider or any necessary prescription medications provided at your visit or from your PCP IF YOU TESTED NEGATIVE If you are symptomatic with reason to believe you have COVID-19, there is a high possibility your rapid test may not have detected the virus. Rapid testing is dependent on timing and viral load and may have a false-negative reading You should follow appropriate guidelines regarding quarantine, hand washing, mask wearing, and social distancing You may be sent for PCR testing as an outpatient to the [facility] testing site Common Adult Symptoms: Fever/chills Cough Shortness of breath Fatigue, muscle aches Headache Loss of taste/smell Sore throat, congestion, runny nose GI symptoms (nausea, vomiting, diarrhea) Common Pediatric Symptoms Cough Fever GI symptoms (diarrhea, upset stomach, nausea, vomiting) Symptoms may differ in severity however, most cases do not require hospitalization. WHEN TO SEEK ER EVALUATION/TREATMENT Severe/persistent shortness of breath or difficulty breathing Elevated, persistent fevers without resolution with fever-reducing medications Chest pain Extreme fatigue/lethargy Complications of pre-existing disease Patient Language: Icelandic Prescriptions: New Paxlovid 300 mg (150 mg x 2)-100 mg tablets,dose pack See Rx Instructions .ROUTE .COMPLEX Qty: 30 0RF Rx Instructions: take TWO 150 mg tablets of nirmatrelvir with ONE 100 mg tablet of ritonavir twice daily for 5 days. Stop taking your simvastatin for 7 days while taking this medication. Recommended to refrain from taking hydrocodone while taking this medication codeine-guaifenesin [Guaifenesin AC] 10-100 mg/5 mL liquid 5 ml PO Q6H PRN (Reason: cough) Qty: 120 0RF No Action baclofen 20 mg tablet 40 mg PO BID Rx Instructions: 0900 &1300 gabapentin 600 mg tablet 600 mg PO TID Linzess 290 mcg capsule Kesimpta Pen 20 mg/0.4 mL pen injector 20 mg subcut WEEKLY Rx Instructions: administer at Weeks 0, 1, and 2 of therapy simvastatin 10 mg tablet 10 mg PO DAILY Qty: 90 0RF Mounjaro 7.5 mg/0.5 mL pen injector 7.5 mg subcut WEEKLY Qty: 2 0RF albuterol sulfate 2.5 mg /3 mL (0.083 %) solution for nebulization 2.5 mg inhalation Q4-6H PRN (Reason: shortness of breath or wheezing) Qty: 180 0RF ketoconazole 2 % cream 1 applic topical .COMPLEX Qty: 60 0RF Rx Instructions: apply once or twice daily to affected areas for two to four weeks tizanidine 4 mg Tablet 6 mg PO HS nystatin 100,000 unit/gram powder 1 applic topical TID PRN (Reason: rash on stomach) Qty: 60 0RF fluticasone propion-salmeterol [Advair HFA] 115-21 mcg/actuation HFA aerosol inhaler 2 puff inhalation BID Qty: 12 0RF (DME) blood-glucose meter Kit See Rx Instructions .Route Qty: 1 0RF Rx Instructions: Check glucose daily As directed (DME) Blood Glucose Test Strip See Rx Instructions .Route Qty: 50 2RF Rx Instructions: Check blood glucose daily As directed (DME) lancets Misc See Rx Instructions .Route Qty: 100 2RF Rx Instructions: Check blood glucose daily As directed estradiol 0.01 % (0.1 mg/gram) cream 1 g vaginal 3XW Qty: 42.5 1RF omeprazole 40 mg capsule,delayed release(DR/EC) See Rx Instructions .ROUTE .COMPLEX Qty: 90 0RF Dose Instruction: TAKE 1 CAPSULE BY MOUTH DAILY Rx Instructions: TAKE 1 CAPSULE BY MOUTH DAILY fluconazole 150 mg tablet 150 mg PO ONCE Qty: 1 0RF Rx Instructions: as a single dose metronidazole [MetroCream] 0.75 % cream 1 applic topical QHS Qty: 45 0RF doxycycline monohydrate 100 mg tablet 100 mg PO BID Qty: 60 0RF amitriptyline 10 mg tablet See Rx Instructions .ROUTE .COMPLEX Qty: 90 1RF Dose Instruction: TAKE 1 TABLET BY MOUTH EVERY DAY AT BEDTIME Rx Instructions: TAKE 1 TABLET BY MOUTH EVERY DAY AT BEDTIME hydrocodone-acetaminophen 10-325 mg tablet 1 tablet PO Q4H PRN (Reason: pain (scale score 7-10)) Qty: 150 0RF lorazepam 2 mg tablet 2 mg PO HS Qty: 30 0RF Mounjaro 5 mg/0.5 mL pen injector 5 mg subcut WEEKLY Qty: 2 0RF budesonide-formoterol [Symbicort] 160-4.5 mcg/actuation HFA aerosol inhaler 2 puff inhalation Q12H Qty: 10.2 0RF molnupiravir 200 mg capsule 800 mg PO Q12H 5 Days Qty: 40 0RF Follow-up/Referrals: Reginald Lock MD [Primary Care Provider, Family Practice] Time of Disposition: 15:00
== END 2025-05-15 15:09 | disposition home or self-care (01) ==
PROVIDERS: Emergency Provider Nurse Practitioner Family; PCP Family Medicine
DX: U07.1 COVID-19 (principal); I10 Essential (primary) hypertension; E11.9 Type 2 diabetes mellitus without complications; G35.D Multiple sclerosis, unspecified; E78.5 Hyperlipidemia, unspecified
CPT/HCPCS: 99213; G0463